=== PATIENT | male | born 1955 | race Caucasian/White ===

== ENCOUNTER → 2017-11-09 07:41 | Outpatient (CLI) | payer OTHER, SELFPAY ==
[2017-11-09 08:34] LABS: Add Manual Diff / Slide Review NO; Eosinophils Percent Auto 4.9 % (2-4); Hematocrit 47.6 % (41-53); Hemoglobin 16.1 g/dL (13.5-17.5); Lymphocytes Percent Auto 33.1 % (25-40); Mean Corpuscular HGB Conc 33.8 % (30-36); Mean Corpuscular Hemoglobin 30.2 PG (26-34); Mean Corpuscular Volume 89.3 fL (80-100); Monocytes Percent Auto 9.3 % (3-14); Neutrophils Absolute Auto 3600 /uL (3000-5900); Neutrophils Percent Auto 51.7 % (50-75); Platelet Count 225 X10^3/uL (150-400); Red Blood Cell Count 5.34 X10^6/uL (4.5-5.9); Red Cell Distribution Width 13.5 % (11.6-14.8); White Blood Cell Count 6.9 X10^3/uL (4.5-11.0)
[2017-11-09 08:46] LABS: Alanine Aminotransferase 35 IU/L (21-72); Albumin 4.1 g/dL (3.5-5.0); Albumin Globulin Ratio 1.2 (1.0-2.8); Alkaline Phosphatase 69 U/L (38-126); Aspartate Aminotransferase 28 IU/L (17-59); Bilirubin Total 0.6 mg/dL (0.2-1.3); Blood Urea Nitrogen 18 mg/dL (9-20); Calcium 9.2 mg/dL (8.4-10.2); Carbon Dioxide 25 mmol/L (22-32); Chloride 104 mmol/L (98-107); Cholesterol 214 mg/dL (140-199); Estimated Glomerular Filt Rate > 60.0 mL/min (>60); Globulin 3.4 g/dL (1.7-4.1); Glucose 108 mg/dL (80-110); HDL Cholesterol 39 mg/dL (40-60); HEMOLYSIS < 15 (0-50); LDL Cholesterol Calculated 142 mg/dL (<100); Potassium 4.3 mmol/L (3.4-5.1); Sodium 139 mmol/L (137-145); Total Protein 7.5 g/dL (6.3-8.2); Triglycerides 163 mg/dL (35-150)
[2017-11-09 09:16] LABS: Prostate Specific Antigen Scrn 0.902 ng/mL (0.1-4.0)
[2017-11-09 09:34] LABS: Thyroid Stimulating Hormone 1.28 uIU/mL (0.47-4.68)
== END ==
PROVIDERS: Family Provider Internal Medicine; PCP Internal Medicine; Visit Provider Internal Medicine
DX: E78.5 Hyperlipidemia, unspecified (principal)
CPT/HCPCS: 36415; 80053; 80061; 84443; 85025; G0103

== ENCOUNTER → 2018-01-13 07:06 | Outpatient (CLI) | payer OTHER, SELFPAY ==
[2018-01-13 07:50] LABS: Alanine Aminotransferase 36 IU/L (21-72); Albumin 4.5 g/dL (3.5-5.0); Albumin Globulin Ratio 1.5 (1.0-2.8); Alkaline Phosphatase 70 U/L (38-126); Aspartate Aminotransferase 25 IU/L (17-59); Bilirubin Total 0.4 mg/dL (0.2-1.3); Bilirubin Unconjugated 0.2 mg/dL (0.0-1.1); Blood Urea Nitrogen 17 mg/dL (9-20); Carbon Dioxide 26 mmol/L (22-32); Chloride 104 mmol/L (98-107); Cholesterol 148 mg/dL (140-199); Estimated Glomerular Filt Rate > 60.0 mL/min (>60); Globulin 3.1 g/dL (1.7-4.1); Glucose 110 mg/dL (80-110); HDL Cholesterol 39 mg/dL (40-60); HEMOLYSIS < 15 (0-50); LDL Cholesterol Calculated 86 mg/dL (<100); Potassium 4.1 mmol/L (3.4-5.1); Sodium 142 mmol/L (137-145); Total Protein 7.6 g/dL (6.3-8.2); Triglycerides 114 mg/dL (35-150)
== END ==
PROVIDERS: PCP Internal Medicine; Visit Provider Internal Medicine
DX: E78.5 Hyperlipidemia, unspecified (principal); I10 Essential (primary) hypertension
CPT/HCPCS: 36415; 80048; 80061; 80076

== ENCOUNTER → 2019-02-06 07:16 | Outpatient (CLI) | payer MEDICARE, SELFPAY ==
[2019-02-06 07:45] LABS: Add Manual Diff / Slide Review NO; Basophils Absolute Auto 100 /uL (0-100); Basophils Percent Auto 1.1 % (0-2); Eosinophils Absolute Auto 400 /uL (0-450); Eosinophils Percent Auto 5.3 % (2-4); Hematocrit 45.3 % (41-53); Hemoglobin 15.6 g/dL (13.5-17.5); Lymphocytes Absolute Auto 2300 /uL (1100-4500); Lymphocytes Percent Auto 31.9 % (25-40); Mean Corpuscular HGB Conc 34.4 % (30-36); Mean Corpuscular Hemoglobin 30.3 PG (26-34); Monocytes Absolute Auto 700 /uL (0-900); Monocytes Percent Auto 9.8 % (3-14); Neutrophils Absolute Auto 3800 /uL (1500-7000); Neutrophils Percent Auto 51.9 % (50-75); Platelet Count 236 X10^3/uL (150-400); Red Blood Cell Count 5.15 X10^6/uL (4.5-5.9); Red Cell Distribution Width 13.3 % (11.6-14.8); White Blood Cell Count 7.3 X10^3/uL (4.5-11.0)
[2019-02-06 07:57] LABS: Alanine Aminotransferase 32 IU/L (<50); Albumin 4.2 g/dL (3.5-5.0); Albumin Globulin Ratio 1.4 (1.0-2.8); Alkaline Phosphatase 78 U/L (38-126); Aspartate Aminotransferase 31 IU/L (17-59); Bilirubin Total 0.5 mg/dL (0.2-1.3); Blood Urea Nitrogen 22 mg/dL (9-20); Calcium 9.2 mg/dL (8.4-10.2); Carbon Dioxide 25 mmol/L (22-32); Chloride 104 mmol/L (98-107); Cholesterol 175 mg/dL (140-199); Estimated Glomerular Filt Rate > 60.0 mL/min (>60); Globulin 3.1 g/dL (1.7-4.1); Glucose 121 mg/dL (80-110); HDL Cholesterol 37 mg/dL (40-60); HEMOLYSIS 16 (0-50); LDL Cholesterol Calculated 102 mg/dL (<100); Potassium 4.2 mmol/L (3.4-5.1); Sodium 138 mmol/L (137-145); Total Protein 7.3 g/dL (6.3-8.2); Triglycerides 182 mg/dL (35-150)
[2019-02-06 08:27] LABS: Prostate Specific Antigen Scrn 0.719 ng/mL (0.1-4.0)
[2019-02-06 08:51] LABS: TSH w/ Reflex to FT4 1.07 uIU/mL (0.47-4.68)
[2019-02-06 09:11] LABS: Hep C Virus Ab w/Reflex Quant NEGATIVE s/c (NEGATIVE)
== END ==
PROVIDERS: Family Provider Internal Medicine; PCP Internal Medicine; Visit Provider Nurse Practitioner
DX: Z12.5 Encounter for screening for malignant neoplasm of prostate (principal); Z11.59 Encounter for screening for other viral diseases; E66.9 Obesity, unspecified; E78.5 Hyperlipidemia, unspecified; I10 Essential (primary) hypertension
CPT/HCPCS: 36415; 80053; 80061; 84443; 85025; 86803; G0103

== ENCOUNTER → 2019-02-17 07:45 | Outpatient (CLI) | payer MEDICARE, SELFPAY ==
[2019-02-17 09:06] LABS: Hemoglobin A1C% w Est Avg Glu 5.5 % (4.0-6.0)
[2019-02-17 09:27] LABS: Glucose 104 mg/dL (80-110)
== END ==
PROVIDERS: PCP Nurse Practitioner; Visit Provider Nurse Practitioner
DX: R73.01 Impaired fasting glucose (principal)
CPT/HCPCS: 36415; 82947; 83036

== ENCOUNTER → 2019-05-25 08:50 | Outpatient (CLI) | payer MEDICARE, SELFPAY ==
[2019-05-25 09:24] LABS: Cholesterol 146 mg/dL (140-199); HDL Cholesterol 39 mg/dL (40-60); LDL Cholesterol Calculated 79 mg/dL (<100); Triglycerides 142 mg/dL (35-150)
[2019-05-25 09:56] LABS: Hepatitis B Surface Antigen NEGATIVE s/c (NEGATIVE)
[2019-05-25 10:07] LABS: HIV 1 & 2 Ab/Ag 4th Gen Combo NEGATIVE (NEGATIVE)
[2019-05-27 14:04] LABS: Hepatitis B Surf Ab Qualitativ Nonreactive (Nonreactive)
== END ==
PROVIDERS: PCP Nurse Practitioner; Referring Provider Nurse Practitioner; Visit Provider Nurse Practitioner
DX: Z11.3 Encounter for screening for infections with a predominantly sexual mode of transmission (principal); E78.5 Hyperlipidemia, unspecified
CPT/HCPCS: 36415; 80061; 86706; 87340; 87389

== ENCOUNTER → 2019-12-08 10:47 | Outpatient (CLI) | payer MEDICARE, SELFPAY ==
[2019-12-11 08:05] LABS: COVID19 Sendout Not Detected (Not Detect)
== END ==
PROVIDERS: PCP Nurse Practitioner; Visit Provider Physician Assistant
DX: Z11.59 Encounter for screening for other viral diseases (principal)
CPT/HCPCS: 87635

== ENCOUNTER 2019-12-11 07:21 | Day surgery (SDC) | payer MEDICARE, SELFPAY ==
[2019-12-11] MEDS: LACTATED RINGERS 1,000 ML 200 ML IV (07:30)
[2019-12-11 07:40] VITALS: BP 142/86; PULSE 75; RESP 12; TEMP 36.6; O2SAT 96; BMI 29.9
--- NOTE | 2019-12-11 08:13 | PM.HP.1 ---
History of Present Illness History of Present Illness Date Patient Seen: 12/11/19 Time Patient Seen: 08:17 Chief complaint: SCREENING COLONOSCOPY Narrative: The patient presents for colorectal sreening. He had a previous colonoscopy 4 years ago that demonstrated adenomatous polyps which were removed.. No personal or family history of colon cancer. On further history denies any recent gastrointestinal symptoms. No nausea, vomiting, abdominal pain, loss of appetite, unexplained weight loss, change in bowel habits, diarrhea, constipation, melena, hematochezia, or bright red blood per rectum. Patient History Medical History Cataracts, bilateral (Chronic ~2014) Chicken pox (Resolved ~1960) Dehydration determined by examination (Acute) Hearing deficit (Chronic) Orthostatic dizziness (Acute) Vision disorder (Chronic) Surgical History Anesthesia (Resolved) History of tonsillectomy (~1963) Rupture Achilles tendon (Resolved ~1997) Family & Social History Family History Grandfather Black lung Son No problems noted. Father Heart disease Stroke Grandmother No problems noted. Mother Cancer ETOH abuse Grandfather No problems noted. Grandmother Cancer Social History: household members spouse Tobacco & Substance use: Smoking Status Never smoker alcohol intake current alcohol intake frequency 0-2 drinks per day Substance Use Type does not use Meds Home Medications and Allergies Home Medications Medication Instructions Recorded Confirmed Type aspirin 81 mg tablet,delayed 81 mg PO DAILY 10/28/18 12/11/19 History release hydrochlorothiazide 12.5 mg tablet 12.5 mg PO DAILY #90 tab 10/28/18 12/11/19 Rx atorvastatin 20 mg tablet 20 mg PO BEDTIME #90 tab 08/16/19 12/11/19 Rx Allergies Allergy/AdvReac Type Severity Reaction Status Date / Time No Known Drug Allergies Allergy Verified 12/11/19 07:32 Review of Systems Review of Systems Narrative: A 10 point review of systems is negative except as noted in the HPI Exam Vital Signs (past 8 hours): - 12/11/19 07:40 Temperature 97.8 F Pulse Rate 75 Respiratory Rate 12 Blood Pressure 142/86 H Pulse Oximetry 96 Oxygen Delivery Method Room Air Narrative Exam Narrative: General-no acute distress, well nourished adult male HEENT-moist mucous membranes, no scleral icterus Neck-supple, no lymphadenopathy Chest- non labored respirations, clear to auscultation bilaterally Cardiac-regular rate no peripheral edema Abdomen-soft, nontender, non distended Extremities-warm, well perfused Neurological-alert and oriented, no focal deficits Assessment & Plan Assessment and plan (1) Screening for malignant neoplasm of colon: Status: Acute Assessment & Plan narrative: The patient requires colorectal screening and colonoscopy is recommended. Technical details were discussed. Risks, benefits, alternatives explained. Risks including but not limited to myocardial infarction, aspiration, bleeding, pain, missed lesion, incomplete examination, need for further radiographic studies, colonic perforation, and need for major abdominal surgery were discussed. All questions were answered to their satisfaction, and they are in agreement with this plan.
[2019-12-11] MEDS: fentaNYL 250 MCG/5 ML INJ IV (08:26)
[2019-12-11] MEDS: MIDAZOLAM 5 MG/5 ML VIAL IV (08:26)
--- NOTE | 2019-12-11 08:53 | PM.OP.ENDO ---
Operative Date/Time/Diagnoses Date of procedure: 12/11/19 Time of procedure: 08:53 Pre-op diagnosis: Screening colonoscopy Post-op diagnosis: same Procedure & Clinicians Study performed: Colonoscopy Same procedure as scheduled: Yes Indications: 64-year-old man last colonoscopy 4 years ago had adenomatous polyps removed here for routine screening Surgeon: Arash Giles Procedure Notes SCOAP/Timeout: Performed Procedure in detail: Patient placed in left lateral recumbent position. Time out was performed. Procedural sedation was administered with Versed and Fentanyl. Examination began with a thorough inspection of the perianal area there was no evidence of fissures, fistulae, external hemorrhoids or cutaneous malignancy. The colonoscopy scope was then placed into the rectum the the lumen was insufflated with air. The scope was carefully advanced forward. Ultimately the cecum was intubated and confirmed by identification of the ileocecal valve, the appendiceal orifice and the confluence of the taenia. The scope was then slowly withdrawn examining colon thoroughly in all directions. In the rectum the rectal columns were identified and retroflexion of the scope was performed for inspection of the distal rectum and anal canal. The colonoscopy was notable for the followin. Quality of the preparation-excellent 2. No masses or polyps 3. Sigmoid diverticulosis 4. Grade 1 internal hemorrhoids Scope withdrawal time: 7 Sedation minutes: 24 Findings: diverticulosis and internal hemorrhoids Specimen(s): none sent Complications: none Impression: Normal colonoscopy Post-procedure Recommendations: Colonscopy in 10 years Disposition: same day surgery
[2019-12-11 08:56] VITALS: BP 115/78; BP 124/82; PULSE 66; PULSE 76; RESP 12; RESP 18; TEMP 36.6; O2SAT 90; O2SAT 92
[2019-12-11 09:02] VITALS: BP 124/82; PULSE 80; RESP 20; O2SAT 92
--- NOTE | 2019-12-11 09:05 | SUR.PHASEI ---
O2 90% room air, put on 2LNP, Awake, HOB elevated, drank juice/tolerated well.
[2019-12-11 09:06] VITALS: BP 122/76; PULSE 61; RESP 12; O2SAT 96
--- NOTE | 2019-12-11 09:09 | SUR.PHASEI ---
Changed fingers for pulse ox, immediately increased to 99%. O2 dc'd
[2019-12-11 09:11] VITALS: BP 120/83; PULSE 63; RESP 10; O2SAT 96
[2019-12-11 09:15] VITALS: BP 113/78; PULSE 64; RESP 10; TEMP 36.3; O2SAT 96
--- NOTE | 2019-12-11 09:16 | SUR.PHASEI ---
Pt has his glasses on.
== END 2019-12-11 09:27 | disposition home or self-care (01) ==
PROVIDERS: PCP Nurse Practitioner; Referring Provider Surgery; Visit Provider Surgery
PROC: 0DJD8ZZ Inspection of Lower Intestinal Tract, Via Natural or Artificial Opening Endoscopic (ICD-10-PCS; CPT 45378; principal; 2019-12-11 08:30)
DX: Z12.11 Encounter for screening for malignant neoplasm of colon (principal); Z86.010 Personal history of colon polyps; K57.30 Diverticulosis of large intestine without perforation or abscess without bleeding; K64.0 First degree hemorrhoids
CPT/HCPCS: G0105; 99152; J2250; J3010

== ENCOUNTER → 2020-04-17 08:23 | Outpatient (CLI) | payer MEDICARE, SELFPAY ==
[2020-04-17 09:32] LABS: Alanine Aminotransferase 41 IU/L (<50); Albumin 4.1 g/dL (3.5-5.0); Albumin Globulin Ratio 1.3 (1.0-2.8); Alkaline Phosphatase 77 U/L (38-126); Aspartate Aminotransferase 31 IU/L (17-59); BUN Creatinine Ratio 18.9 (6-22); Bilirubin Total 0.6 mg/dL (0.2-1.3); Blood Urea Nitrogen 17 mg/dL (9-20); Calcium 8.8 mg/dL (8.4-10.2); Carbon Dioxide 28 mmol/L (22-32); Chloride 105 mmol/L (98-107); Cholesterol 154 mg/dL (140-199); Estimated Glomerular Filt Rate > 60.0 mL/min (>60); Globulin 3.1 g/dL (1.7-4.1); Glucose 110 mg/dL (80-110); HDL Cholesterol 39 mg/dL (40-60); HEMOLYSIS < 15 (0-50); LDL Cholesterol Calculated 86 mg/dL (<100); Sodium 137 mmol/L (137-145); Total Protein 7.2 g/dL (6.3-8.2); Triglycerides 147 mg/dL (35-150)
[2020-04-17 09:53] LABS: Microalbumi Creatinin Ratio Ur 12.7 ug/mg CR (<30); Microalbumin Urine Random 1.9 mg/dL (0-1.6)
[2020-04-17 10:06] LABS: Free T3, Triiodothyronine Free 4.33 pg/mL (2.77-5.27); Free T4, Direct Thyroxine 0.78 ng/dL (0.78-2.19)
[2020-04-17 10:20] LABS: Thyroid Stimulating Hormone 1.14 uIU/mL (0.47-4.68)
[2020-04-17 14:11] LABS: Prostate Specific Antigen 0.616 ng/mL (0.10-4.00)
== END ==
PROVIDERS: PCP Nurse Practitioner; Referring Provider Nurse Practitioner; Visit Provider Nurse Practitioner
DX: E78.5 Hyperlipidemia, unspecified (principal); Z12.5 Encounter for screening for malignant neoplasm of prostate; F32.9 Major depressive disorder, single episode, unspecified; I10 Essential (primary) hypertension; Z79.899 Other long term (current) drug therapy
CPT/HCPCS: 36415; 80053; 80061; 82043; 82570; 84153; 84439; 84443; 84481

== ENCOUNTER → 2021-11-26 08:52 | Outpatient (CLI) | payer MEDICARE, SELFPAY ==
[2021-11-26 11:23] LABS: Alanine Aminotransferase 27 IU/L (<50); Albumin Globulin Ratio 1.1 (1.0-2.8); Alkaline Phosphatase 77 U/L (38-126); Aspartate Aminotransferase 24 IU/L (17-59); BUN Creatinine Ratio 14.9 (6-22); Bilirubin Total 0.7 mg/dL (0.2-1.3); Blood Urea Nitrogen 13 mg/dL (9-20); Calcium 8.6 mg/dL (8.4-10.2); Carbon Dioxide 25 mmol/L (22-32); Chloride 105 mmol/L (98-107); Cholesterol 169 mg/dL (140-199); Estimated Glomerular Filt Rate > 60 mL/min (>60); Globulin 3.5 g/dL (1.7-4.1); Glucose 109 mg/dL (80-110); HDL Cholesterol 39 mg/dL (40-60); HEMOLYSIS < 15 (0-50); LDL Cholesterol Calculated 103 mg/dL (<100); Potassium 3.8 mmol/L (3.4-5.1); Sodium 138 mmol/L (137-145); Total Protein 7.5 g/dL (6.3-8.2); Triglycerides 136 mg/dL (35-150)
[2021-11-26 11:50] LABS: Prostate Specific Antigen 0.754 ng/mL (0.10-4.00)
[2021-11-26 11:55] LABS: Free T3, Triiodothyronine Free 4.58 pg/mL (2.77-5.27); Free T4, Direct Thyroxine 0.97 ng/dL (0.78-2.19)
[2021-11-26 12:09] LABS: Thyroid Stimulating Hormone 0.824 uIU/mL (0.47-4.68)
[2021-11-26 15:35] LABS: Microalbumi Creatinin Ratio Ur 6.4 ug/mg CR (<30)
== END ==
PROVIDERS: PCP Nurse Practitioner; Referring Provider Nurse Practitioner; Visit Provider Nurse Practitioner
DX: E78.2 Mixed hyperlipidemia (principal); I10 Essential (primary) hypertension; Z79.899 Other long term (current) drug therapy; Z12.5 Encounter for screening for malignant neoplasm of prostate
CPT/HCPCS: 36415; 80053; 80061; 82043; 82570; 84153; 84439; 84443; 84481

== ENCOUNTER → 2022-06-09 12:14 | Outpatient (CLI) | payer MEDICARE, SELFPAY ==
--- NOTE | 2022-06-09 12:15 | DI.MRI.S_ITS ---
PROCEDURE: MR SHOULDER RT WO CON INDICATIONS: ongoing shoulder pain despite PT TECHNIQUE: Noncontrast oblique coronal T2 fast spin echo with fat saturation, oblique sagittal T1 spin echo and T2 fast spin echo with fat saturation, axial T1 spin echo and T2 fast spin echo with fat saturation through the shoulder. COMPARISON: None. FINDINGS: Image quality: Excellent. Rotator cuff: Mild T2 signal elevation diffusely throughout the supraspinatus and infraspinatus tendons at the humeral insertion sites extending the musculotendinous junctions, indicating tendinopathy. Superimposed low-grade bursal surface tearing of the anterior and mid supraspinatus tendon at the humeral insertion site. Moderate grade intrasubstance tearing of the mid subscapularis tendon at the humeral insertion site. Infraspinatus and teres minor tendons are intact. No rotator cuff atrophy. Bones and bursae: No bone marrow contusions or fractures. Moderate periarticular osteophyte formation at the glenohumeral joint. Moderate subchondral degenerative marrow edema and subchondral cyst formation within the glenoid and humeral head. Moderate acromioclavicular joint degeneration. The acromion demonstrates conventional anatomy, without an os acromiale. No pathologic subacromial-subdeltoid or subcoracoid bursal fluid is present. Capsule and soft tissues: Diffuse degenerative tearing of the glenoid labrum. The long head of the biceps tendon demonstrates normal location and morphology. The rotator interval appears normal, without fibrosis. The coracohumeral ligament is normal in thickness. IMPRESSION: 1. Supraspinatus and infraspinatus tendinopathy. 2. Multifocal partial-thickness tears of the rotator cuff. No full-thickness rotator cuff tear. 3. Acromioclavicular joint osteoarthritis. 4. Glenohumeral joint osteoarthritis with associated glenoid labral tearing. Dictated by: Gricel Garrido M.D. on 06/09/2022 at 13:20 Transcribed by: NOLA on 06/09/2022 at 13:22 Approved by: Gricel Garrido M.D. on 06/09/2022 at 16:43
== END ==
PROVIDERS: Family Provider Nurse Practitioner; PCP Nurse Practitioner; Referring Provider Nurse Practitioner; Visit Provider Nurse Practitioner
DX: M75.111 Incomplete rotator cuff tear or rupture of right shoulder, not specified as traumatic (principal); M19.011 Primary osteoarthritis, right shoulder; M25.511 Pain in right shoulder
CPT/HCPCS: 73221

== ENCOUNTER 2022-06-24 12:00 | Outpatient (RCR) | payer MEDICARE, SELFPAY ==
--- NOTE | 2022-04-22 11:15 | PT.OPPOC ---
Physical, Occupational & Speech Therapy At [facility] Current Diagnoses Pain in right shoulder (04/22/22) Stiffness of right shoulder, not elsewhere classified (04/22/22) Visit Care Team Role Provider Type DARNELL English Attending Provider Advanced Criminal Defense Attorney Family Provider Primary Care Provider Referring Provider Specialty: Family Practice Address: [address] [place] [address], [facility] Email: [email or web address] Plan Of Care PT-OP-T Assessment and Plan Start: 04/22/22 17:37 Freq: Status: Active Protocol: Document 04/22/22 10:30 DCW (Rec: 04/23/22 09:38 DCW [id number]) Physical Therapy Assessment Rehab Potential Rehabilitation Potential Good Evaluation Complexity Number of Personal Factors/Comorbidities 1-2 Number of Body Systems Impaired 3 Clinical Presentation at Evaluation Evolving Impairments Impairments Activity Tolerance,Functional Activities,Functional Mobility ,Pain,Posture,ROM,Soft Tissue Mobility,Strength,Tone Goals Two Impairment Pt reports interrupted sleep due to pain nearly every night Paper Machine Backtender Goal (LTG) Pt to report return to normal sleep schedule at least five days a week without shoulder pain waking him up. LTG Duration 06/20/22 One Impairment Pt does not have an appropriate home exercise program Short Term Goal (STG) Pt to be independent and compliant with an appropriate HEP STG Duration 05/20/22 Assessment Summary Assessment Pt presents with limited right shoulder ROM, pain, and functional mobility. Difficulty to DDx due to nearly all special testing being positive at his initial evaluation. With his limited ROM, pain, clicking/popping, and occasional instances of his arm getting stuck mid- movement, pt may have labral involvement, vs rotator cuff injury. Additionally, passive ROM is fairly limited after one year of decreased shoulder mobility, which may indicate potential adhesive capsulitis. Pt would likely greatly benefit from advanced imaging, in addition to continued skilled therapy focusing on improving shoulder active and passive ROM, gentle strengthening as tolerated, decreasing soft tissue tone, and improving pain control in order to allow pt better sleep during the night. Physical Therapy Plan Frequency and Duration Frequency of Treatment 2x/Week Plan of Care Start Date 04/22/22 Plan of Care End Date 06/20/22 Therapeutic Interventions Therapeutic Interventions Home Exercise Program,Joint Mobilizations,Manual Therapy, Patient/Caregiver Education, Self-Care/Home Management,Soft Tissue Mobilization, Therapeutic Activities, Therapeutic Exercises Other Referrals/Consults Referrals/Consults Recommended Pt would likely benefit from advanced imaging on his right shoulder Next Visit Focus/Plan Next Note Type Treatment Note Next Visit Plan PROM/AROM, strengthening, STM Plan of Care Dates Plan of Care Start Date 04/22/22 Plan of Care End Date 06/20/22 Electronically Signed by: Juan Lindquist, PT 04/23/22 0939 If you are in agreement with this Plan of Care, please return a signed and dated copy. I have reviewed this Plan of Care and certify that the skilled therapy services above are required to meet the patient?s needs. Physician Signature Date Printed Name and Credentials Clinical Instructor Signature Printed Name and Credentials
--- NOTE | 2022-04-22 11:15 | PT.OIE ---
Current Diagnoses Pain in right shoulder (04/22/22) Stiffness of right shoulder, not elsewhere classified (04/22/22) Past Medical History (Last Reviewed 02/18/22 @ 12:47 by DARNELL English) Cataracts, bilateral (~2014) Chicken pox (~196) Dehydration determined by examination Hearing deficit Orthostatic dizziness Vision disorder Past Surgical History (Last Reviewed 02/18/22 @ 12:47 by DARNELL English) Anesthesia History of tonsillectomy (~1963) Rupture Achilles tendon (~1997) Visit Care Team Role Provider Type DARNELL English Attending Provider Advanced Eeg Tech Family Provider Primary Care Provider Referring Provider Specialty: [facility] Practice Address: [address] [place] [address], [facility] Email: [email or web address] Physical Therapy Initial Evaluation PT-OP-A Visit Information Start: 04/22/22 17:37 Freq: Status: Active Protocol: Document 04/22/22 10:30 DCW (Rec: 04/22/22 17:56 [facility] [id number]) Out-Patient Physical Therapy Visit Information Visit Information Visit Type Initial Evaluation Visit Start Time 10:30 Visit Stop Time 11:15 Total Visit Minutes 45 Visit Number 1 Number of AGENCY SERVICE COORDINATOR Visits 0 Evaluation Information Evaluation Date 04/22/22 PT-OP-B Current Condition Start: 04/22/22 17:37 Freq: Status: Active Protocol: Document 04/22/22 10:30 DCW (Rec: 04/22/22 17:56 [facility] [id number]) Current Condition History of Current Condition Onset Date One year history Current Complaints Insidious onset of right shoulder pain and stiffness History of Current Condition Pt is a 66 year old male presenting with a one year history of right shoulder pain . Pt cannot remember any initial injury. Admits pain has worsened over the past year. Notes there is occasionally a painful popping or grinding sensation, and when he attempts to raise his arm up, it will sometimes feel like it gets stuck. Struggles to lift arm overhead or hold any amount of weight in an extended arm. Admits biggest problem is that is has started to limit his ability to sleep due to the pain. Treatment Goals Patient/Caregiver Goals Improve ability to sleep through the night, improve ROM PT-OP-C Subjective Start: 04/22/22 17:37 Freq: Status: Active Protocol: Document 04/22/22 10:30 DCW (Rec: 04/22/22 17:56 DCW [id number]) OP-PT Subjective Patient Comments Patient Comments Pt admits that he has been really favoring his arm due to pain, performing minimal activities. Patient Reported Progress Worse Patient Questionnaires Quick Dash- Upper Extremity Quick Dash UE Score 27.27% Quick Dash UE Impairment 20 to 39% Impaired (Score 20- 39) PT-OP-E Functional Tests Start: 04/22/22 17:37 Freq: Status: Active Protocol: Document 04/22/22 10:30 DCW (Rec: 04/22/22 17:56 DCW [id number]) Functional Tests Apley's Scratch Test Action 2- Left T2 Action 2- Right T1 Action 3- Left T9 Action 3- Right R PSIS PT-OP-F Manual Assessment Start: 04/22/22 17:37 Freq: Status: Active Protocol: Document 04/22/22 10:30 DCW (Rec: 04/22/22 17:56 DCW [id number]) Manual Assessments Joint Mobility Assessment Joint Mobility Assessment Significant limitations with passive joint mobility, severe grinding and popping noises, PROM largely no greater than limited AROM. Noticeable improvement with pain and mobility with moderate joint distraction PT-OP-K Range of Motion Start: 04/22/22 17:37 Freq: Status: Active Protocol: Document 04/22/22 10:30 DCW (Rec: 04/22/22 17:56 DCW [id number]) Shoulder Goniometric Range of Motion Shoulder Left Active Shoulder ROM WFL No Testing Position Sitting Flexion 160 Abduction 145 External Rotation at 0 degrees Abduction 52 Right Passive Testing Position Supine Flexion 102 Abduction 87 Comments PROM Flexion increased to 123? with distraction through GH Right Active Shoulder ROM WFL No Testing Position Sitting Flexion 92 Abduction 83 External Rotation at 0 degrees Abduction 35 Internal Rotation Behind Back (text) R PSIS PT-OP-L Special Tests Start: 04/22/22 17:37 Freq: Status: Active Protocol: Document 04/22/22 10:30 DCW (Rec: 04/22/22 17:56 DCW [id number]) Special Tests Shoulder Special Tests Passive ER Rotator Cuff Test Results Positive R Lift-Off Rotator Cuff Test Results Unable to position R arm [place] Chencho Impingement Test Results Positive R Grind Labrum Test Results Positive R Drop Arm Rotator Cuff Test Results Unable to position R arm Clunk Test Test Results Positive R Belly Press Test Results Positive R Apprehension Test Test Results Positive R AC Joint Compression Test Results Negative PT-OP-Q Treatments Start: 04/22/22 17:37 Freq: Status: Active Protocol: Document 04/22/22 10:30 DCW (Rec: 04/22/22 17:56 DCW [id number]) Therapeutic Exercises Standing Exercises Wall Slides Standing Exercise Name Wall slides - Flexion and Abduction Side right Pendulums Standing Exercise Name Pendulums Side right PT-OP-T Assessment and Plan Start: 04/22/22 17:37 Freq: Status: Active Protocol: Document 04/22/22 10:30 DCW (Rec: 04/23/22 09:38 DCW [id number]) Physical Therapy Assessment Rehab Potential Rehabilitation Potential Good Evaluation Complexity Number of Personal Factors/Comorbidities 1-2 Number of Body Systems Impaired 3 Clinical Presentation at Evaluation Evolving Impairments Impairments Activity Tolerance,Functional Activities,Functional Mobility ,Pain,Posture,ROM,Soft Tissue Mobility,Strength,Tone Goals Two Impairment Pt reports interrupted sleep due to pain nearly every night Tow Feeder Goal (LTG) Pt to report return to normal sleep schedule at least five days a week without shoulder pain waking him up. LTG Duration 06/20/22 One Impairment Pt does not have an appropriate home exercise program Short Term Goal (STG) Pt to be independent and compliant with an appropriate HEP STG Duration 05/20/22 Assessment Summary Assessment Pt presents with limited right shoulder ROM, pain, and functional mobility. Difficulty to DDx due to nearly all special testing being positive at his initial evaluation. With his limited ROM, pain, clicking/popping, and occasional instances of his arm getting stuck mid- movement, pt may have labral involvement, vs rotator cuff injury. Additionally, passive ROM is fairly limited after one year of decreased shoulder mobility, which may indicate potential adhesive capsulitis. Pt would likely greatly benefit from advanced imaging, in addition to continued skilled therapy focusing on improving shoulder active and passive ROM, gentle strengthening as tolerated, decreasing soft tissue tone, and improving pain control in order to allow pt better sleep during the night. Physical Therapy Plan Frequency and Duration Frequency of Treatment 2x/Week Plan of Care Start Date 04/22/22 Plan of Care End Date 06/20/22 Therapeutic Interventions Therapeutic Interventions Home Exercise Program,Joint Mobilizations,Manual Therapy, Patient/Caregiver Education, Self-Care/Home Management,Soft Tissue Mobilization, Therapeutic Activities, Therapeutic Exercises Other Referrals/Consults Referrals/Consults Recommended Pt would likely benefit from advanced imaging on his right shoulder Next Visit Focus/Plan Next Note Type Treatment Note Next Visit Plan PROM/AROM, strengthening, STM
--- NOTE | 2022-04-29 12:01 | PT.OTN ---
Current Diagnoses Pain in right shoulder (04/29/22) Stiffness of right shoulder, not elsewhere classified (04/29/22) Physical Therapy Treatment Note PT-OP-A Visit Information Start: 04/22/22 17:37 Freq: Status: Active Protocol: Document 04/29/22 11:15 DCW (Rec: 04/29/22 12:01 DCW [id number]) Out-Patient Physical Therapy Visit Information Visit Information Visit Type Treatment Note Visit Start Time 11:15 Visit Stop Time 12:00 Total Visit Minutes 45 Visit Number 2 Number of CORPORATE HUMAN RESOURCES MANAGER Visits 0 Evaluation Information Evaluation Date 04/22/22 PT-OP-B Current Condition Start: 04/22/22 17:37 Freq: Status: Active Protocol: Document 04/22/22 10:30 DCW (Rec: 04/22/22 17:56 DCW [id number]) Current Condition History of Current Condition Onset Date One year history Current Complaints Insidious onset of right shoulder pain and stiffness History of Current Condition Pt is a 66 year old male presenting with a one year history of right shoulder pain . Pt cannot remember any initial injury. Admits pain has worsened over the past year. Notes there is occasionally a painful popping or grinding sensation, and when he attempts to raise his arm up, it will sometimes feel like it gets stuck. Struggles to lift arm overhead or hold any amount of weight in an extended arm. Admits biggest problem is that is has started to limit his ability to sleep due to the pain. Treatment Goals Patient/Caregiver Goals Improve ability to sleep through the night, improve ROM PT-OP-C Subjective Start: 04/22/22 17:37 Freq: Status: Active Protocol: Document 04/29/22 11:15 DCW (Rec: 04/29/22 12:01 DCW [id number]) OP-PT Subjective Patient Comments Patient Comments Pt reports his shoulder is fairly sore today. PT-OP-E Functional Tests Start: 04/22/22 17:37 Freq: Status: Active Protocol: Document 04/22/22 10:30 DCW (Rec: 04/22/22 17:56 DCW [id number]) Functional Tests Apley's Scratch Test Action 2- Left T2 Action 2- Right T1 Action 3- Left T9 Action 3- Right R PSIS PT-OP-F Manual Assessment Start: 04/22/22 17:37 Freq: Status: Active Protocol: Document 04/22/22 10:30 DCW (Rec: 04/22/22 17:56 DCW [id number]) Manual Assessments Joint Mobility Assessment Joint Mobility Assessment Significant limitations with passive joint mobility, severe grinding and popping noises, PROM largely no greater than limited AROM. Noticeable improvement with pain and mobility with moderate joint distraction PT-OP-K Range of Motion Start: 04/22/22 17:37 Freq: Status: Active Protocol: Document 04/22/22 10:30 DCW (Rec: 04/22/22 17:56 DCW [id number]) Shoulder Goniometric Range of Motion Shoulder Left Active Shoulder ROM WFL No Testing Position Sitting Flexion 160 Abduction 145 External Rotation at 0 degrees Abduction 52 Right Passive Testing Position Supine Flexion 102 Abduction 87 Comments PROM Flexion increased to 123? with distraction through GH Right Active Shoulder ROM WFL No Testing Position Sitting Flexion 92 Abduction 83 External Rotation at 0 degrees Abduction 35 Internal Rotation Behind Back (text) R PSIS PT-OP-L Special Tests Start: 04/22/22 17:37 Freq: Status: Active Protocol: Document 04/22/22 10:30 DCW (Rec: 04/22/22 17:56 DCW [id number]) Special Tests Shoulder Special Tests Passive ER Rotator Cuff Test Results Positive R Lift-Off Rotator Cuff Test Results Unable to position R arm [place] Chen[place] Impingement Test Results Positive R Grind Labrum Test Results Positive R Drop Arm Rotator Cuff Test Results Unable to position R arm Clunk Test Test Results Positive R Belly Press Test Results Positive R Apprehension Test Test Results Positive R AC Joint Compression Test Results Negative PT-OP-Q Treatments Start: 04/22/22 17:37 Freq: Status: Active Protocol: Document 04/29/22 11:15 DCW (Rec: 04/29/22 12:01 DCW [id number]) Cardio Equipment Upper Body Ergometer (UBE) Duration (Minutes) 5 Seat Position 14 Height 2.5 Therapeutic Exercises Supine Exercises Horizontal Ab/Ad Supine Exercise Name Horizontal Ab/Adduction Side bilateral Equipment Used PVC Serratus Punch Supine Exercise Name Serratus Punch Side bilateral Equipment Used PVC Shoulder Flexion Supine Exercise Name AAROM /c PVC Sitting Exercises GH PROM Sitting Exercise Name Pulleys - Flexion, Scaption Standing Exercises Shoulder Abduction Standing Exercise Name AAROM /c PVC Side right Manual Therapy Treatment Soft Tissue Mobilization Parascapular Body Location R Parascapulars Mobilization Type Sustained Pressure,Trigger Point Release Intensity/Depth Moderate Body Position Supine Joint Mobilizations GH Joint R GH Direction Inferior Grade III Body Position Supine PT-OP-T Assessment and Plan Start: 04/22/22 17:37 Freq: Status: Active Protocol: Document 04/29/22 11:15 DCW (Rec: 04/29/22 12:01 DCW [id number]) Physical Therapy Assessment Impairments Impairments Activity Tolerance,Functional Activities,Functional Mobility ,Pain,Posture,ROM,Soft Tissue Mobility,Strength,Tone Goals Two Impairment Pt reports interrupted sleep due to pain nearly every night Senior Living Goal (LTG) Pt to report return to normal sleep schedule at least five days a week without shoulder pain waking him up. LTG Duration 06/20/22 One Impairment Pt does not have an appropriate home exercise program Short Term Goal (STG) Pt to be independent and compliant with an appropriate HEP STG Duration 05/20/22 Assessment Summary Assessment Pt tolerated most activities well, increased popping/ crunching in joint with most abduction activities. No activities today increased pain levels too much, pt noted everything was tolerable. Physical Therapy Plan Frequency and Duration Frequency of Treatment 2x/Week Plan of Care Start Date 04/22/22 Plan of Care End Date 06/20/22 Therapeutic Interventions Therapeutic Interventions Home Exercise Program,Joint Mobilizations,Manual Therapy, Patient/Caregiver Education, Self-Care/Home Management,Soft Tissue Mobilization, Therapeutic Activities, Therapeutic Exercises Other Referrals/Consults Referrals/Consults Recommended Pt would likely benefit from advanced imaging on his right shoulder Next Visit Focus/Plan Next Note Type Treatment Note Next Visit Plan PROM/AROM, strengthening, STM
--- NOTE | 2022-05-01 12:02 | PT.OTN ---
Current Diagnoses Pain in right shoulder (05/01/22) Stiffness of right shoulder, not elsewhere classified (05/01/22) Physical Therapy Treatment Note PT-OP-A Visit Information Start: 04/22/22 17:37 Freq: Status: Active Protocol: Document 05/01/22 11:19 DCW (Rec: 05/01/22 12:01 DCW [id number]) Out-Patient Physical Therapy Visit Information Visit Information Visit Type Treatment Note Visit Start Time 11:19 Visit Stop Time 12:00 Total Visit Minutes 41 Visit Number 3 Number of BIOLOGICAL ENGINEER Visits 0 Evaluation Information Evaluation Date 04/22/22 PT-OP-B Current Condition Start: 04/22/22 17:37 Freq: Status: Active Protocol: Document 04/22/22 10:30 DCW (Rec: 04/22/22 17:56 DCW [id number]) Current Condition History of Current Condition Onset Date One year history Current Complaints Insidious onset of right shoulder pain and stiffness History of Current Condition Pt is a 66 year old male presenting with a one year history of right shoulder pain . Pt cannot remember any initial injury. Admits pain has worsened over the past year. Notes there is occasionally a painful popping or grinding sensation, and when he attempts to raise his arm up, it will sometimes feel like it gets stuck. Struggles to lift arm overhead or hold any amount of weight in an extended arm. Admits biggest problem is that is has started to limit his ability to sleep due to the pain. Treatment Goals Patient/Caregiver Goals Improve ability to sleep through the night, improve ROM PT-OP-C Subjective Start: 04/22/22 17:37 Freq: Status: Active Protocol: Document 05/01/22 11:19 DCW (Rec: 05/01/22 12:01 DCW [id number]) OP-PT Subjective Patient Comments Patient Comments I've felt like I had spent a few hours in the weight room after I got done here last time. PT-OP-E Functional Tests Start: 04/22/22 17:37 Freq: Status: Active Protocol: Document 04/22/22 10:30 DCW (Rec: 04/22/22 17:56 DCW [id number]) Functional Tests Apley's Scratch Test Action 2- Left T2 Action 2- Right T1 Action 3- Left T9 Action 3- Right R PSIS PT-OP-F Manual Assessment Start: 04/22/22 17:37 Freq: Status: Active Protocol: Document 04/22/22 10:30 DCW (Rec: 04/22/22 17:56 DCW [id number]) Manual Assessments Joint Mobility Assessment Joint Mobility Assessment Significant limitations with passive joint mobility, severe grinding and popping noises, PROM largely no greater than limited AROM. Noticeable improvement with pain and mobility with moderate joint distraction PT-OP-K Range of Motion Start: 04/22/22 17:37 Freq: Status: Active Protocol: Document 04/22/22 10:30 DCW (Rec: 04/22/22 17:56 DCW [id number]) Shoulder Goniometric Range of Motion Shoulder Left Active Shoulder ROM WFL No Testing Position Sitting Flexion 160 Abduction 145 External Rotation at 0 degrees Abduction 52 Right Passive Testing Position Supine Flexion 102 Abduction 87 Comments PROM Flexion increased to 123? with distraction through GH Right Active Shoulder ROM WFL No Testing Position Sitting Flexion 92 Abduction 83 External Rotation at 0 degrees Abduction 35 Internal Rotation Behind Back (text) R PSIS PT-OP-L Special Tests Start: 04/22/22 17:37 Freq: Status: Active Protocol: Document 04/22/22 10:30 DCW (Rec: 04/22/22 17:56 DCW [id number]) Special Tests Shoulder Special Tests Passive ER Rotator Cuff Test Results Positive R Lift-Off Rotator Cuff Test Results Unable to position R arm [place] Chen[place] Impingement Test Results Positive R Grind Labrum Test Results Positive R Drop Arm Rotator Cuff Test Results Unable to position R arm Clunk Test Test Results Positive R Belly Press Test Results Positive R Apprehension Test Test Results Positive R AC Joint Compression Test Results Negative PT-OP-Q Treatments Start: 04/22/22 17:37 Freq: Status: Active Protocol: Document 05/01/22 11:19 DCW (Rec: 05/01/22 12:01 DCW [id number]) Cardio Equipment Upper Body Ergometer (UBE) Duration (Minutes) 5 Seat Position 14 Height 3 Therapeutic Exercises Supine Exercises Horizontal Ab/Ad Supine Exercise Name Horizontal Ab/Adduction Side bilateral Equipment Used PVC Serratus Punch Supine Exercise Name Serratus Punch Side bilateral Equipment Used PVC Shoulder Flexion Supine Exercise Name AAROM /c PVC Sitting Exercises GH PROM Sitting Exercise Name Pulleys - Flexion, Scaption Standing Exercises Rows Standing Exercise Name Rows Side bilateral Resistance Lv 2 Adduction Standing Exercise Name Shoulder Adduction Side bilateral Resistance Lv 2 Extension Standing Exercise Name Shoulder Extension Side bilateral Resistance Lv 2 Manual Therapy Treatment Soft Tissue Mobilization Parascapular Body Location R Parascapulars Mobilization Type Sustained Pressure,Trigger Point Release Intensity/Depth Moderate Body Position Supine Joint Mobilizations GH Joint R GH Direction Inferior Grade III Body Position Supine PT-OP-T Assessment and Plan Start: 04/22/22 17:37 Freq: Status: Active Protocol: Document 05/01/22 11:19 DCW (Rec: 05/01/22 12:01 DCW [id number]) Physical Therapy Assessment Impairments Impairments Activity Tolerance,Functional Activities,Functional Mobility ,Pain,Posture,ROM,Soft Tissue Mobility,Strength,Tone Goals Two Impairment Pt reports interrupted sleep due to pain nearly every night House Manager Goal (LTG) Pt to report return to normal sleep schedule at least five days a week without shoulder pain waking him up. LTG Duration 06/20/22 One Impairment Pt does not have an appropriate home exercise program Short Term Goal (STG) Pt to be independent and compliant with an appropriate HEP STG Duration 05/20/22 Assessment Summary Assessment Pt continues to have popping/ rubbing present with most activities in his R GH joint, notes no associated pain with it at the moment. Did well with new strengthening exercises, reports understanding of his HEP. Physical Therapy Plan Frequency and Duration Frequency of Treatment 2x/Week Plan of Care Start Date 04/22/22 Plan of Care End Date 06/20/22 Therapeutic Interventions Therapeutic Interventions Home Exercise Program,Joint Mobilizations,Manual Therapy, Patient/Caregiver Education, Self-Care/Home Management,Soft Tissue Mobilization, Therapeutic Activities, Therapeutic Exercises Other Referrals/Consults Referrals/Consults Recommended Pt would likely benefit from advanced imaging on his right shoulder Next Visit Focus/Plan Next Note Type Treatment Note Next Visit Plan PROM/AROM, strengthening, STM
--- NOTE | 2022-05-04 11:57 | PT.OTN ---
Current Diagnoses Pain in right shoulder (05/04/22) Stiffness of right shoulder, not elsewhere classified (05/04/22) Physical Therapy Treatment Note PT-OP-A Visit Information Start: 04/22/22 17:37 Freq: Status: Active Protocol: Document 05/04/22 11:15 DCW (Rec: 05/04/22 11:57 DCW [id number]) Out-Patient Physical Therapy Visit Information Visit Information Visit Type Treatment Note Visit Start Time 11:15 Visit Stop Time 12:00 Total Visit Minutes 45 Visit Number 4 Number of WATER QUALITY ASSISTANT Visits 0 Evaluation Information Evaluation Date 04/22/22 PT-OP-B Current Condition Start: 04/22/22 17:37 Freq: Status: Active Protocol: Document 04/22/22 10:30 DCW (Rec: 04/22/22 17:56 DCW [id number]) Current Condition History of Current Condition Onset Date One year history Current Complaints Insidious onset of right shoulder pain and stiffness History of Current Condition Pt is a 66 year old male presenting with a one year history of right shoulder pain . Pt cannot remember any initial injury. Admits pain has worsened over the past year. Notes there is occasionally a painful popping or grinding sensation, and when he attempts to raise his arm up, it will sometimes feel like it gets stuck. Struggles to lift arm overhead or hold any amount of weight in an extended arm. Admits biggest problem is that is has started to limit his ability to sleep due to the pain. Treatment Goals Patient/Caregiver Goals Improve ability to sleep through the night, improve ROM PT-OP-C Subjective Start: 04/22/22 17:37 Freq: Status: Active Protocol: Document 05/04/22 11:15 DCW (Rec: 05/04/22 11:57 DCW [id number]) OP-PT Subjective Patient Comments Patient Comments Pt still having some discomfort with HEP, specifically wall-walking up into abduction. PT-OP-E Functional Tests Start: 04/22/22 17:37 Freq: Status: Active Protocol: Document 04/22/22 10:30 DCW (Rec: 04/22/22 17:56 DCW [id number]) Functional Tests Apley's Scratch Test Action 2- Left T2 Action 2- Right T1 Action 3- Left T9 Action 3- Right R PSIS PT-OP-F Manual Assessment Start: 04/22/22 17:37 Freq: Status: Active Protocol: Document 04/22/22 10:30 DCW (Rec: 04/22/22 17:56 DCW [id number]) Manual Assessments Joint Mobility Assessment Joint Mobility Assessment Significant limitations with passive joint mobility, severe grinding and popping noises, PROM largely no greater than limited AROM. Noticeable improvement with pain and mobility with moderate joint distraction PT-OP-K Range of Motion Start: 04/22/22 17:37 Freq: Status: Active Protocol: Document 04/22/22 10:30 DCW (Rec: 04/22/22 17:56 DCW [id number]) Shoulder Goniometric Range of Motion Shoulder Left Active Shoulder ROM WFL No Testing Position Sitting Flexion 160 Abduction 145 External Rotation at 0 degrees Abduction 52 Right Passive Testing Position Supine Flexion 102 Abduction 87 Comments PROM Flexion increased to 123? with distraction through GH Right Active Shoulder ROM WFL No Testing Position Sitting Flexion 92 Abduction 83 External Rotation at 0 degrees Abduction 35 Internal Rotation Behind Back (text) R PSIS PT-OP-L Special Tests Start: 04/22/22 17:37 Freq: Status: Active Protocol: Document 04/22/22 10:30 DCW (Rec: 04/22/22 17:56 DCW [id number]) Special Tests Shoulder Special Tests Passive ER Rotator Cuff Test Results Positive R Lift-Off Rotator Cuff Test Results Unable to position R arm [place] Impingement Test Results Positive R Grind Labrum Test Results Positive R Drop Arm Rotator Cuff Test Results Unable to position R arm Clunk Test Test Results Positive R Belly Press Test Results Positive R Apprehension Test Test Results Positive R AC Joint Compression Test Results Negative PT-OP-Q Treatments Start: 04/22/22 17:37 Freq: Status: Active Protocol: Document 05/04/22 11:15 DCW (Rec: 05/04/22 11:57 DCW [id number]) Cardio Equipment Upper Body Ergometer (UBE) Duration (Minutes) 5 Seat Position 14 Height 3 Gym Equipment Therapeutic Ball I's, Y's, T's Exercise Details Prone I's, Y's, and T's Ball Size/Color Green - 65 cm 1# Body Position Prone Therapeutic Exercises Supine Exercises Horizontal Ab/Ad Supine Exercise Name Horizontal Ab/Adduction Side bilateral Equipment Used PVC Serratus Punch Supine Exercise Name Serratus Punch Side bilateral Equipment Used PVC Shoulder Flexion Supine Exercise Name AAROM /c PVC Sitting Exercises GH PROM Sitting Exercise Name Pulleys - Flexion, Scaption Standing Exercises Pec Stretch Standing Exercise Name Doorway stretch 45 deg abd Side bilateral Manual Therapy Treatment Soft Tissue Mobilization Parascapular Body Location R Parascapulars Mobilization Type Sustained Pressure,Trigger Point Release Intensity/Depth Moderate Body Position Supine Joint Mobilizations GH Joint R GH Direction Inferior Grade III Body Position Supine PT-OP-T Assessment and Plan Start: 04/22/22 17:37 Freq: Status: Active Protocol: Document 05/04/22 11:15 DCW (Rec: 05/04/22 11:57 DCW [id number]) Physical Therapy Assessment Impairments Impairments Activity Tolerance,Functional Activities,Functional Mobility ,Pain,Posture,ROM,Soft Tissue Mobility,Strength,Tone Goals Two Impairment Pt reports interrupted sleep due to pain nearly every night Radiology Teacher Goal (LTG) Pt to report return to normal sleep schedule at least five days a week without shoulder pain waking him up. LTG Duration 06/20/22 One Impairment Pt does not have an appropriate home exercise program Short Term Goal (STG) Pt to be independent and compliant with an appropriate HEP STG Duration 05/20/22 Assessment Summary Assessment Pt doing fairly well overall, showing some improvement with flexion activities, still largely limited with any abduction. Added some pec stretching today due to fairly significant tightness in right pec. Physical Therapy Plan Frequency and Duration Frequency of Treatment 2x/Week Plan of Care Start Date 04/22/22 Plan of Care End Date 06/20/22 Therapeutic Interventions Therapeutic Interventions Home Exercise Program,Joint Mobilizations,Manual Therapy, Patient/Caregiver Education, Self-Care/Home Management,Soft Tissue Mobilization, Therapeutic Activities, Therapeutic Exercises Other Referrals/Consults Referrals/Consults Recommended Pt would likely benefit from advanced imaging on his right shoulder Next Visit Focus/Plan Next Note Type Treatment Note Next Visit Plan PROM/AROM, strengthening, STM
--- NOTE | 2022-05-07 12:00 | PT.OTN ---
Current Diagnoses Pain in right shoulder (05/07/22) Stiffness of right shoulder, not elsewhere classified (05/07/22) Physical Therapy Treatment Note PT-OP-A Visit Information Start: 04/22/22 17:37 Freq: Status: Active Protocol: Document 05/07/22 11:15 DCW (Rec: 05/07/22 12:00 DCW [id number]) Out-Patient Physical Therapy Visit Information Visit Information Visit Type Treatment Note Visit Start Time 11:15 Visit Stop Time 12:00 Total Visit Minutes 45 Visit Number 5 Number of LINING MAKER HAND Visits 0 Evaluation Information Evaluation Date 04/22/22 PT-OP-B Current Condition Start: 04/22/22 17:37 Freq: Status: Active Protocol: Document 04/22/22 10:30 DCW (Rec: 04/22/22 17:56 DCW [id number]) Current Condition History of Current Condition Onset Date One year history Current Complaints Insidious onset of right shoulder pain and stiffness History of Current Condition Pt is a 66 year old male presenting with a one year history of right shoulder pain . Pt cannot remember any initial injury. Admits pain has worsened over the past year. Notes there is occasionally a painful popping or grinding sensation, and when he attempts to raise his arm up, it will sometimes feel like it gets stuck. Struggles to lift arm overhead or hold any amount of weight in an extended arm. Admits biggest problem is that is has started to limit his ability to sleep due to the pain. Treatment Goals Patient/Caregiver Goals Improve ability to sleep through the night, improve ROM PT-OP-C Subjective Start: 04/22/22 17:37 Freq: Status: Active Protocol: Document 05/07/22 11:15 DCW (Rec: 05/07/22 12:00 DCW [id number]) OP-PT Subjective Patient Comments Patient Comments I would say it is less sore than Wednesday. PT-OP-E Functional Tests Start: 04/22/22 17:37 Freq: Status: Active Protocol: Document 04/22/22 10:30 DCW (Rec: 04/22/22 17:56 DCW [id number]) Functional Tests Apley's Scratch Test Action 2- Left T2 Action 2- Right T1 Action 3- Left T9 Action 3- Right R PSIS PT-OP-F Manual Assessment Start: 04/22/22 17:37 Freq: Status: Active Protocol: Document 04/22/22 10:30 DCW (Rec: 04/22/22 17:56 DCW [id number]) Manual Assessments Joint Mobility Assessment Joint Mobility Assessment Significant limitations with passive joint mobility, severe grinding and popping noises, PROM largely no greater than limited AROM. Noticeable improvement with pain and mobility with moderate joint distraction PT-OP-K Range of Motion Start: 04/22/22 17:37 Freq: Status: Active Protocol: Document 04/22/22 10:30 DCW (Rec: 04/22/22 17:56 DCW [id number]) Shoulder Goniometric Range of Motion Shoulder Left Active Shoulder ROM WFL No Testing Position Sitting Flexion 160 Abduction 145 External Rotation at 0 degrees Abduction 52 Right Passive Testing Position Supine Flexion 102 Abduction 87 Comments PROM Flexion increased to 123? with distraction through GH Right Active Shoulder ROM WFL No Testing Position Sitting Flexion 92 Abduction 83 External Rotation at 0 degrees Abduction 35 Internal Rotation Behind Back (text) R PSIS PT-OP-L Special Tests Start: 04/22/22 17:37 Freq: Status: Active Protocol: Document 04/22/22 10:30 DCW (Rec: 04/22/22 17:56 DCW [id number]) Special Tests Shoulder Special Tests Passive ER Rotator Cuff Test Results Positive R Lift-Off Rotator Cuff Test Results Unable to position R arm [place] Impingement Test Results Positive R Grind Labrum Test Results Positive R Drop Arm Rotator Cuff Test Results Unable to position R arm Clunk Test Test Results Positive R Belly Press Test Results Positive R Apprehension Test Test Results Positive R AC Joint Compression Test Results Negative PT-OP-Q Treatments Start: 04/22/22 17:37 Freq: Status: Active Protocol: Document 05/07/22 11:15 DCW (Rec: 05/07/22 12:00 DCW [id number]) Cardio Equipment Upper Body Ergometer (UBE) Duration (Minutes) 5 Seat Position 14 Height 3 Gym Equipment Therapeutic Ball I's, Y's, T's Exercise Details Prone I's, Y's, and T's Ball Size/Color Green - 65 cm 1# Body Position Prone Therapeutic Exercises Supine Exercises Horizontal Ab/Ad Supine Exercise Name Horizontal Ab/Adduction Side bilateral Equipment Used PVC Serratus Punch Supine Exercise Name Serratus Punch Side bilateral Equipment Used PVC Shoulder Flexion Supine Exercise Name AAROM /c PVC Sitting Exercises GH PROM Sitting Exercise Name Pulleys - Flexion, Scaption Manual Therapy Treatment Soft Tissue Mobilization Parascapular Body Location R Parascapulars Mobilization Type Sustained Pressure,Trigger Point Release Intensity/Depth Moderate Body Position Supine Joint Mobilizations GH Joint R GH Direction Inferior Grade III Body Position Supine PT-OP-T Assessment and Plan Start: 04/22/22 17:37 Freq: Status: Active Protocol: Document 05/07/22 11:15 DCW (Rec: 05/07/22 12:00 DCW [id number]) Physical Therapy Assessment Impairments Impairments Activity Tolerance,Functional Activities,Functional Mobility ,Pain,Posture,ROM,Soft Tissue Mobility,Strength,Tone Goals Two Impairment Pt reports interrupted sleep due to pain nearly every night Custodial Goal (LTG) Pt to report return to normal sleep schedule at least five days a week without shoulder pain waking him up. LTG Duration 06/20/22 One Impairment Pt does not have an appropriate home exercise program Short Term Goal (STG) Pt to be independent and compliant with an appropriate HEP STG Duration 05/20/22 Assessment Summary Assessment Discussed importance of holding stretch long enough, pt agreeable to make changes to his HEP. Showing some improvement with general ROM. Physical Therapy Plan Frequency and Duration Frequency of Treatment 2x/Week Plan of Care Start Date 04/22/22 Plan of Care End Date 06/20/22 Therapeutic Interventions Therapeutic Interventions Home Exercise Program,Joint Mobilizations,Manual Therapy, Patient/Caregiver Education, Self-Care/Home Management,Soft Tissue Mobilization, Therapeutic Activities, Therapeutic Exercises Other Referrals/Consults Referrals/Consults Recommended Pt would likely benefit from advanced imaging on his right shoulder Next Visit Focus/Plan Next Note Type Treatment Note Next Visit Plan PROM/AROM, strengthening, STM
--- NOTE | 2022-05-11 11:58 | PT.OTN ---
Current Diagnoses Pain in right shoulder (05/11/22) Stiffness of right shoulder, not elsewhere classified (05/11/22) Physical Therapy Treatment Note PT-OP-A Visit Information Start: 04/22/22 17:37 Freq: Status: Active Protocol: Document 05/11/22 11:14 DCW (Rec: 05/11/22 11:58 DCW [id number]) Out-Patient Physical Therapy Visit Information Visit Information Visit Type Treatment Note Visit Start Time 11:15 Visit Stop Time 12:00 Total Visit Minutes 45 Visit Number 6 Number of HEMODIALYSIS PATIENT CARE SPECIALIST Visits 0 Evaluation Information Evaluation Date 04/22/22 PT-OP-B Current Condition Start: 04/22/22 17:37 Freq: Status: Active Protocol: Document 04/22/22 10:30 DCW (Rec: 04/22/22 17:56 DCW [id number]) Current Condition History of Current Condition Onset Date One year history Current Complaints Insidious onset of right shoulder pain and stiffness History of Current Condition Pt is a 66 year old male presenting with a one year history of right shoulder pain . Pt cannot remember any initial injury. Admits pain has worsened over the past year. Notes there is occasionally a painful popping or grinding sensation, and when he attempts to raise his arm up, it will sometimes feel like it gets stuck. Struggles to lift arm overhead or hold any amount of weight in an extended arm. Admits biggest problem is that is has started to limit his ability to sleep due to the pain. Treatment Goals Patient/Caregiver Goals Improve ability to sleep through the night, improve ROM PT-OP-C Subjective Start: 04/22/22 17:37 Freq: Status: Active Protocol: Document 05/11/22 11:14 DCW (Rec: 05/11/22 11:58 DCW [id number]) OP-PT Subjective Patient Comments Patient Comments Pt admits his shoulder is sore , he has been working on the exercises. PT-OP-E Functional Tests Start: 04/22/22 17:37 Freq: Status: Active Protocol: Document 04/22/22 10:30 DCW (Rec: 04/22/22 17:56 DCW [id number]) Functional Tests Apley's Scratch Test Action 2- Left T2 Action 2- Right T1 Action 3- Left T9 Action 3- Right R PSIS PT-OP-F Manual Assessment Start: 04/22/22 17:37 Freq: Status: Active Protocol: Document 04/22/22 10:30 DCW (Rec: 04/22/22 17:56 DCW [id number]) Manual Assessments Joint Mobility Assessment Joint Mobility Assessment Significant limitations with passive joint mobility, severe grinding and popping noises, PROM largely no greater than limited AROM. Noticeable improvement with pain and mobility with moderate joint distraction PT-OP-K Range of Motion Start: 04/22/22 17:37 Freq: Status: Active Protocol: Document 04/22/22 10:30 DCW (Rec: 04/22/22 17:56 DCW [id number]) Shoulder Goniometric Range of Motion Shoulder Left Active Shoulder ROM WFL No Testing Position Sitting Flexion 160 Abduction 145 External Rotation at 0 degrees Abduction 52 Right Passive Testing Position Supine Flexion 102 Abduction 87 Comments PROM Flexion increased to 123? with distraction through GH Right Active Shoulder ROM WFL No Testing Position Sitting Flexion 92 Abduction 83 External Rotation at 0 degrees Abduction 35 Internal Rotation Behind Back (text) R PSIS PT-OP-L Special Tests Start: 04/22/22 17:37 Freq: Status: Active Protocol: Document 04/22/22 10:30 DCW (Rec: 04/22/22 17:56 DCW [id number]) Special Tests Shoulder Special Tests Passive ER Rotator Cuff Test Results Positive R Lift-Off Rotator Cuff Test Results Unable to position R arm [place] Impingement Test Results Positive R Grind Labrum Test Results Positive R Drop Arm Rotator Cuff Test Results Unable to position R arm Clunk Test Test Results Positive R Belly Press Test Results Positive R Apprehension Test Test Results Positive R AC Joint Compression Test Results Negative PT-OP-Q Treatments Start: 04/22/22 17:37 Freq: Status: Active Protocol: Document 05/11/22 11:14 DCW (Rec: 05/11/22 11:58 DCW [id number]) Cardio Equipment Upper Body Ergometer (UBE) Duration (Minutes) 5 Seat Position 14 Height 3 Gym Equipment Therapeutic Ball I's, Y's, T's Exercise Details Prone I's, Y's, and T's Ball Size/Color Green - 65 cm 1# Body Position Prone Therapeutic Exercises Supine Exercises Circles Supine Exercise Name Moving UE in circles at 90 deg flexion Side right Resistance 1# Foam Roll Supine Exercise Name Pec stretch Horizontal Ab/Ad Supine Exercise Name Horizontal Ab/Adduction Side bilateral Equipment Used PVC Serratus Punch Supine Exercise Name Serratus Punch Side bilateral Equipment Used PVC Shoulder Flexion Supine Exercise Name AAROM /c PVC Standing Exercises Internal Rotation Standing Exercise Name Pullys - GH IR Side right Manual Therapy Treatment Soft Tissue Mobilization Parascapular Body Location R Parascapulars Mobilization Type Sustained Pressure,Trigger Point Release Intensity/Depth Moderate Body Position Supine Joint Mobilizations GH Joint R GH Direction Inferior Grade III Body Position Supine PT-OP-T Assessment and Plan Start: 04/22/22 17:37 Freq: Status: Active Protocol: Document 05/11/22 11:14 DCW (Rec: 05/11/22 11:58 DCW [id number]) Physical Therapy Assessment Impairments Impairments Activity Tolerance,Functional Activities,Functional Mobility ,Pain,Posture,ROM,Soft Tissue Mobility,Strength,Tone Goals Two Impairment Pt reports interrupted sleep due to pain nearly every night Alf Goal (LTG) Pt to report return to normal sleep schedule at least five days a week without shoulder pain waking him up. LTG Duration 06/20/22 One Impairment Pt does not have an appropriate home exercise program Short Term Goal (STG) Pt to be independent and compliant with an appropriate HEP STG Duration 05/20/22 Assessment Summary Assessment Pt pretty significantly limited with IR stretching today, additionally continues to be fairly severely limited with PROM flexion and abduction, consistent rubbing at GH joint with movement. Physical Therapy Plan Frequency and Duration Frequency of Treatment 2x/Week Plan of Care Start Date 04/22/22 Plan of Care End Date 06/20/22 Therapeutic Interventions Therapeutic Interventions Home Exercise Program,Joint Mobilizations,Manual Therapy, Patient/Caregiver Education, Self-Care/Home Management,Soft Tissue Mobilization, Therapeutic Activities, Therapeutic Exercises Other Referrals/Consults Referrals/Consults Recommended Pt would likely benefit from advanced imaging on his right shoulder Next Visit Focus/Plan Next Note Type Treatment Note Next Visit Plan PROM/AROM, strengthening, STM
--- NOTE | 2022-05-14 12:03 | PT.OTN ---
Current Diagnoses Pain in right shoulder (05/14/22) Stiffness of right shoulder, not elsewhere classified (05/14/22) Physical Therapy Treatment Note PT-OP-A Visit Information Start: 04/22/22 17:37 Freq: Status: Active Protocol: Document 05/14/22 11:15 DCW (Rec: 05/14/22 12:03 DCW [id number]) Out-Patient Physical Therapy Visit Information Visit Information Visit Type Treatment Note Visit Start Time 11:15 Visit Stop Time 12:00 Total Visit Minutes 45 Visit Number 7 Number of AUDIO VISUAL TECHNICIAN Visits 0 Evaluation Information Evaluation Date 04/22/22 PT-OP-B Current Condition Start: 04/22/22 17:37 Freq: Status: Active Protocol: Document 04/22/22 10:30 DCW (Rec: 04/22/22 17:56 DCW [id number]) Current Condition History of Current Condition Onset Date One year history Current Complaints Insidious onset of right shoulder pain and stiffness History of Current Condition Pt is a 66 year old male presenting with a one year history of right shoulder pain . Pt cannot remember any initial injury. Admits pain has worsened over the past year. Notes there is occasionally a painful popping or grinding sensation, and when he attempts to raise his arm up, it will sometimes feel like it gets stuck. Struggles to lift arm overhead or hold any amount of weight in an extended arm. Admits biggest problem is that is has started to limit his ability to sleep due to the pain. Treatment Goals Patient/Caregiver Goals Improve ability to sleep through the night, improve ROM PT-OP-C Subjective Start: 04/22/22 17:37 Freq: Status: Active Protocol: Document 05/14/22 11:15 DCW (Rec: 05/14/22 12:03 DCW [id number]) OP-PT Subjective Patient Comments Patient Comments I'm less sore than what I have been. PT-OP-E Functional Tests Start: 04/22/22 17:37 Freq: Status: Active Protocol: Document 04/22/22 10:30 DCW (Rec: 04/22/22 17:56 DCW [id number]) Functional Tests Apley's Scratch Test Action 2- Left T2 Action 2- Right T1 Action 3- Left T9 Action 3- Right R PSIS PT-OP-F Manual Assessment Start: 04/22/22 17:37 Freq: Status: Active Protocol: Document 04/22/22 10:30 DCW (Rec: 04/22/22 17:56 DCW [id number]) Manual Assessments Joint Mobility Assessment Joint Mobility Assessment Significant limitations with passive joint mobility, severe grinding and popping noises, PROM largely no greater than limited AROM. Noticeable improvement with pain and mobility with moderate joint distraction PT-OP-K Range of Motion Start: 04/22/22 17:37 Freq: Status: Active Protocol: Document 04/22/22 10:30 DCW (Rec: 04/22/22 17:56 DCW [id number]) Shoulder Goniometric Range of Motion Shoulder Left Active Shoulder ROM WFL No Testing Position Sitting Flexion 160 Abduction 145 External Rotation at 0 degrees Abduction 52 Right Passive Testing Position Supine Flexion 102 Abduction 87 Comments PROM Flexion increased to 123? with distraction through GH Right Active Shoulder ROM WFL No Testing Position Sitting Flexion 92 Abduction 83 External Rotation at 0 degrees Abduction 35 Internal Rotation Behind Back (text) R PSIS PT-OP-L Special Tests Start: 04/22/22 17:37 Freq: Status: Active Protocol: Document 04/22/22 10:30 DCW (Rec: 04/22/22 17:56 DCW [id number]) Special Tests Shoulder Special Tests Passive ER Rotator Cuff Test Results Positive R Lift-Off Rotator Cuff Test Results Unable to position R arm [place] Impingement Test Results Positive R Grind Labrum Test Results Positive R Drop Arm Rotator Cuff Test Results Unable to position R arm Clunk Test Test Results Positive R Belly Press Test Results Positive R Apprehension Test Test Results Positive R AC Joint Compression Test Results Negative PT-OP-Q Treatments Start: 04/22/22 17:37 Freq: Status: Active Protocol: Document 05/14/22 11:15 DCW (Rec: 05/14/22 12:03 DCW [id number]) Cardio Equipment Upper Body Ergometer (UBE) Duration (Minutes) 5 Seat Position 14 Height 3 Therapeutic Exercises Supine Exercises Horizontal Ab/Ad Supine Exercise Name Horizontal Ab/Adduction Side bilateral Equipment Used PVC Shoulder Flexion Supine Exercise Name AAROM /c PVC Standing Exercises Wall Push-ups Standing Exercise Name Wall Push-ups Reps/Minutes x15 Comments W and <> hand positions Internal Rotation Standing Exercise Name Pullys - GH IR Side right Other Exercises Resisted ambulation Other Exercise Name Resisted UE side-stepping Resistance Green Manual Therapy Treatment Soft Tissue Mobilization Parascapular Body Location R Parascapulars Mobilization Type Sustained Pressure,Trigger Point Release Intensity/Depth Moderate Body Position Supine Joint Mobilizations GH Joint R GH Direction Inferior Grade III Body Position Supine PT-OP-T Assessment and Plan Start: 04/22/22 17:37 Freq: Status: Active Protocol: Document 05/14/22 11:15 DCW (Rec: 05/14/22 12:03 DCW [id number]) Physical Therapy Assessment Impairments Impairments Activity Tolerance,Functional Activities,Functional Mobility ,Pain,Posture,ROM,Soft Tissue Mobility,Strength,Tone Goals Two Impairment Pt reports interrupted sleep due to pain nearly every night Group Home Goal (LTG) Pt to report return to normal sleep schedule at least five days a week without shoulder pain waking him up. LTG Duration 06/20/22 One Impairment Pt does not have an appropriate home exercise program Short Term Goal (STG) Pt to be independent and compliant with an appropriate HEP STG Duration 05/20/22 Assessment Summary Assessment Pt still not progressing quickly, is able to report decreased pain and soreness at night, however still not sleeping well, limited with ROM. May benefit from return to PCP for imaging if he continues to show minimal progression. Physical Therapy Plan Frequency and Duration Frequency of Treatment 2x/Week Plan of Care Start Date 04/22/22 Plan of Care End Date 06/20/22 Therapeutic Interventions Therapeutic Interventions Home Exercise Program,Joint Mobilizations,Manual Therapy, Patient/Caregiver Education, Self-Care/Home Management,Soft Tissue Mobilization, Therapeutic Activities, Therapeutic Exercises Other Referrals/Consults Referrals/Consults Recommended Pt would likely benefit from advanced imaging on his right shoulder Next Visit Focus/Plan Next Note Type Treatment Note Next Visit Plan PROM/AROM, strengthening, STM
--- NOTE | 2022-05-18 12:00 | PT.OTN ---
Current Diagnoses Pain in right shoulder (05/18/22) Stiffness of right shoulder, not elsewhere classified (05/18/22) Physical Therapy Treatment Note PT-OP-A Visit Information Start: 04/22/22 17:37 Freq: Status: Active Protocol: Document 05/18/22 11:15 DCW (Rec: 05/18/22 12:00 DCW [id number]) Out-Patient Physical Therapy Visit Information Visit Information Visit Type Treatment Note Visit Start Time 11:15 Visit Stop Time 12:00 Total Visit Minutes 45 Visit Number 8 Number of CLINICAL TEAM MANAGER Visits 0 Evaluation Information Evaluation Date 04/22/22 PT-OP-B Current Condition Start: 04/22/22 17:37 Freq: Status: Active Protocol: Document 04/22/22 10:30 DCW (Rec: 04/22/22 17:56 DCW [id number]) Current Condition History of Current Condition Onset Date One year history Current Complaints Insidious onset of right shoulder pain and stiffness History of Current Condition Pt is a 66 year old male presenting with a one year history of right shoulder pain . Pt cannot remember any initial injury. Admits pain has worsened over the past year. Notes there is occasionally a painful popping or grinding sensation, and when he attempts to raise his arm up, it will sometimes feel like it gets stuck. Struggles to lift arm overhead or hold any amount of weight in an extended arm. Admits biggest problem is that is has started to limit his ability to sleep due to the pain. Treatment Goals Patient/Caregiver Goals Improve ability to sleep through the night, improve ROM PT-OP-C Subjective Start: 04/22/22 17:37 Freq: Status: Active Protocol: Document 05/18/22 11:15 DCW (Rec: 05/18/22 12:00 DCW [id number]) OP-PT Subjective Patient Comments Patient Comments I probably overdid it on Wednesday, so it was a little sore yesterday. I still did my stretching exercises, but I noticed I couldn't get the full motion that I was getting on Wednesday. It was a little better today. PT-OP-E Functional Tests Start: 04/22/22 17:37 Freq: Status: Active Protocol: Document 04/22/22 10:30 DCW (Rec: 04/22/22 17:56 DCW [id number]) Functional Tests Apley's Scratch Test Action 2- Left T2 Action 2- Right T1 Action 3- Left T9 Action 3- Right R PSIS PT-OP-F Manual Assessment Start: 04/22/22 17:37 Freq: Status: Active Protocol: Document 04/22/22 10:30 DCW (Rec: 04/22/22 17:56 DCW [id number]) Manual Assessments Joint Mobility Assessment Joint Mobility Assessment Significant limitations with passive joint mobility, severe grinding and popping noises, PROM largely no greater than limited AROM. Noticeable improvement with pain and mobility with moderate joint distraction PT-OP-K Range of Motion Start: 04/22/22 17:37 Freq: Status: Active Protocol: Document 04/22/22 10:30 DCW (Rec: 04/22/22 17:56 DCW [id number]) Shoulder Goniometric Range of Motion Shoulder Left Active Shoulder ROM WFL No Testing Position Sitting Flexion 160 Abduction 145 External Rotation at 0 degrees Abduction 52 Right Passive Testing Position Supine Flexion 102 Abduction 87 Comments PROM Flexion increased to 123? with distraction through GH Right Active Shoulder ROM WFL No Testing Position Sitting Flexion 92 Abduction 83 External Rotation at 0 degrees Abduction 35 Internal Rotation Behind Back (text) R PSIS PT-OP-L Special Tests Start: 04/22/22 17:37 Freq: Status: Active Protocol: Document 04/22/22 10:30 DCW (Rec: 04/22/22 17:56 DCW [id number]) Special Tests Shoulder Special Tests Passive ER Rotator Cuff Test Results Positive R Lift-Off Rotator Cuff Test Results Unable to position R arm [place] Impingement Test Results Positive R Grind Labrum Test Results Positive R Drop Arm Rotator Cuff Test Results Unable to position R arm Clunk Test Test Results Positive R Belly Press Test Results Positive R Apprehension Test Test Results Positive R AC Joint Compression Test Results Negative PT-OP-Q Treatments Start: 04/22/22 17:37 Freq: Status: Active Protocol: Document 05/18/22 11:15 DCW (Rec: 05/18/22 12:00 DCW [id number]) Cardio Equipment Upper Body Ergometer (UBE) Duration (Minutes) 5 Seat Position 14 Height 3 Therapeutic Exercises Supine Exercises Circles Supine Exercise Name Moving UE in circles at 90 deg flexion Side right Resistance 3# Standing Exercises Wall Push-ups Standing Exercise Name Wall Push-ups Reps/Minutes x15 Comments W and <> hand positions Internal Rotation Standing Exercise Name Pullys - GH IR Side right Other Exercises Resisted ambulation Other Exercise Name Resisted UE side-stepping Resistance Green Manual Therapy Treatment Soft Tissue Mobilization Parascapular Body Location R Parascapulars Mobilization Type Sustained Pressure,Trigger Point Release Intensity/Depth Moderate Body Position Supine Joint Mobilizations GH Joint R GH Direction Inferior Grade III Body Position Supine PT-OP-T Assessment and Plan Start: 04/22/22 17:37 Freq: Status: Active Protocol: Document 05/18/22 11:15 DCW (Rec: 05/18/22 12:00 DCW [id number]) Physical Therapy Assessment Impairments Impairments Activity Tolerance,Functional Activities,Functional Mobility ,Pain,Posture,ROM,Soft Tissue Mobility,Strength,Tone Goals Two Impairment Pt reports interrupted sleep due to pain nearly every night Centrifugal Casting Machine Tender Goal (LTG) Pt to report return to normal sleep schedule at least five days a week without shoulder pain waking him up. 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 Complaints of continued soreness along length of supraspinatus. Physical Therapy Plan Frequency and Duration Frequency of Treatment 2x/Week Plan of Care Start Date 04/22/22 Plan of Care End Date 06/20/22 Therapeutic Interventions Therapeutic Interventions Home Exercise Program,Joint Mobilizations,Manual Therapy, Patient/Caregiver Education, Self-Care/Home Management,Soft Tissue Mobilization, Therapeutic Activities, Therapeutic Exercises Other Referrals/Consults Referrals/Consults Recommended Pt would likely benefit from advanced imaging on his right shoulder Next Visit Focus/Plan Next Note Type Treatment Note Next Visit Plan PROM/AROM, strengthening, STM
--- NOTE | 2022-05-27 15:12 | PT.OTN ---
Current Diagnoses Pain in right shoulder (05/27/22) Stiffness of right shoulder, not elsewhere classified (05/27/22) Physical Therapy Treatment Note PT-OP-A Visit Information Start: 04/22/22 17:37 Freq: Status: Active Protocol: Document 05/27/22 14:30 DCW (Rec: 05/27/22 15:12 DCW [id number]) Out-Patient Physical Therapy Visit Information Visit Information Visit Type Treatment Note Visit Start Time 14:30 Visit Stop Time 15:15 Total Visit Minutes 45 Visit Number 9 Number of CHIEF COMMERCIAL OFFICER Visits 0 Evaluation Information Evaluation Date 04/22/22 PT-OP-B Current Condition Start: 04/22/22 17:37 Freq: Status: Active Protocol: Document 04/22/22 10:30 DCW (Rec: 04/22/22 17:56 DCW [id number]) Current Condition History of Current Condition Onset Date One year history Current Complaints Insidious onset of right shoulder pain and stiffness History of Current Condition Pt is a 66 year old male presenting with a one year history of right shoulder pain . Pt cannot remember any initial injury. Admits pain has worsened over the past year. Notes there is occasionally a painful popping or grinding sensation, and when he attempts to raise his arm up, it will sometimes feel like it gets stuck. Struggles to lift arm overhead or hold any amount of weight in an extended arm. Admits biggest problem is that is has started to limit his ability to sleep due to the pain. Treatment Goals Patient/Caregiver Goals Improve ability to sleep through the night, improve ROM PT-OP-C Subjective Start: 04/22/22 17:37 Freq: Status: Active Protocol: Document 05/27/22 14:30 DCW (Rec: 05/27/22 15:12 DCW [id number]) OP-PT Subjective Patient Comments Patient Comments I've been good about doing the exercises. It's still sore at night, but I'm able to get through my day. PT-OP-E Functional Tests Start: 04/22/22 17:37 Freq: Status: Active Protocol: Document 04/22/22 10:30 DCW (Rec: 04/22/22 17:56 DCW [id number]) Functional Tests Apley's Scratch Test Action 2- Left T2 Action 2- Right T1 Action 3- Left T9 Action 3- Right R PSIS PT-OP-F Manual Assessment Start: 04/22/22 17:37 Freq: Status: Active Protocol: Document 04/22/22 10:30 DCW (Rec: 04/22/22 17:56 DCW [id number]) Manual Assessments Joint Mobility Assessment Joint Mobility Assessment Significant limitations with passive joint mobility, severe grinding and popping noises, PROM largely no greater than limited AROM. Noticeable improvement with pain and mobility with moderate joint distraction PT-OP-K Range of Motion Start: 04/22/22 17:37 Freq: Status: Active Protocol: Document 04/22/22 10:30 DCW (Rec: 04/22/22 17:56 DCW [id number]) Shoulder Goniometric Range of Motion Shoulder Left Active Shoulder ROM WFL No Testing Position Sitting Flexion 160 Abduction 145 External Rotation at 0 degrees Abduction 52 Right Passive Testing Position Supine Flexion 102 Abduction 87 Comments PROM Flexion increased to 123? with distraction through GH Right Active Shoulder ROM WFL No Testing Position Sitting Flexion 92 Abduction 83 External Rotation at 0 degrees Abduction 35 Internal Rotation Behind Back (text) R PSIS PT-OP-L Special Tests Start: 04/22/22 17:37 Freq: Status: Active Protocol: Document 04/22/22 10:30 DCW (Rec: 04/22/22 17:56 DCW [id number]) Special Tests Shoulder Special Tests Passive ER Rotator Cuff Test Results Positive R Lift-Off Rotator Cuff Test Results Unable to position R arm [place] Chencho Impingement Test Results Positive R Grind Labrum Test Results Positive R Drop Arm Rotator Cuff Test Results Unable to position R arm Clunk Test Test Results Positive R Belly Press Test Results Positive R Apprehension Test Test Results Positive R AC Joint Compression Test Results Negative PT-OP-Q Treatments Start: 04/22/22 17:37 Freq: Status: Active Protocol: Document 05/27/22 14:30 DCW (Rec: 05/27/22 15:12 DCW [id number]) Cardio Equipment Upper Body Ergometer (UBE) Duration (Minutes) 5 Seat Position 14 Height 3 Gym Equipment Therapeutic Ball Ball stabilization Exercise Details Ball stabilization vs perturbation Ball Size/Color Blue - 45 cm Body Position Supine Therapeutic Exercises Standing Exercises Wall Push-ups Standing Exercise Name Wall Push-ups Reps/Minutes x15 Comments W and <> hand positions Internal Rotation Standing Exercise Name Pulleys - GH IR Side right Other Exercises Resisted ambulation Other Exercise Name Resisted UE side-stepping Resistance Green Manual Therapy Treatment Soft Tissue Mobilization Parascapular Body Location R Parascapulars Mobilization Type Sustained Pressure,Trigger Point Release Intensity/Depth Moderate Body Position Supine Joint Mobilizations GH Joint R GH Direction Inferior Grade III Body Position Supine PT-OP-T Assessment and Plan Start: 04/22/22 17:37 Freq: Status: Active Protocol: Document 05/27/22 14:30 DCW (Rec: 05/27/22 15:12 DCW [id number]) Physical Therapy Assessment Impairments Impairments Activity Tolerance,Functional Activities,Functional Mobility ,Pain,Posture,ROM,Soft Tissue Mobility,Strength,Tone Goals Two Impairment Pt reports interrupted sleep due to pain nearly every night Industrial Psychology Professor Goal (LTG) Pt to report return to normal sleep schedule at least five days a week without shoulder pain waking him up. LTG Duration 06/20/22 One Impairment Pt does not have an appropriate home exercise program Short Term Goal (STG) Pt to be independent and compliant with an appropriate HEP STG Duration 05/20/22 Assessment Summary Assessment Pt better than last week, but still quite limited with both PROM and AROM, especially with IR/ER, but flexion and abduction also continue to show fairly significant resistance to increased stretching. Physical Therapy Plan Frequency and Duration Frequency of Treatment 2x/Week Plan of Care Start Date 04/22/22 Plan of Care End Date 06/20/22 Therapeutic Interventions Therapeutic Interventions Home Exercise Program,Joint Mobilizations,Manual Therapy, Patient/Caregiver Education, Self-Care/Home Management,Soft Tissue Mobilization, Therapeutic Activities, Therapeutic Exercises Other Referrals/Consults Referrals/Consults Recommended Pt would likely benefit from advanced imaging on his right shoulder Next Visit Focus/Plan Next Note Type Treatment Note Next Visit Plan PROM/AROM, strengthening, STM
--- NOTE | 2022-06-24 12:43 | PT.OTN ---
Current Diagnoses Pain in right shoulder (06/24/22) Stiffness of right shoulder, not elsewhere classified (06/24/22) Physical Therapy Treatment Note PT-OP-A Visit Information Start: 04/22/22 17:37 Freq: Status: Active Protocol: Document 06/24/22 12:02 DCW (Rec: 06/24/22 12:43 DCW [id number]) Out-Patient Physical Therapy Visit Information Visit Information Visit Type Discharge Summary Visit Start Time 12:02 Visit Stop Time 12:45 Total Visit Minutes 43 Visit Number 10 Number of SUSHI CHEF Visits 0 Evaluation Information Evaluation Date 04/22/22 PT-OP-B Current Condition Start: 04/22/22 17:37 Freq: Status: Active Protocol: Document 04/22/22 10:30 DCW (Rec: 04/22/22 17:56 DCW [id number]) Current Condition History of Current Condition Onset Date One year history Current Complaints Insidious onset of right shoulder pain and stiffness History of Current Condition Pt is a 66 year old male presenting with a one year history of right shoulder pain . Pt cannot remember any initial injury. Admits pain has worsened over the past year. Notes there is occasionally a painful popping or grinding sensation, and when he attempts to raise his arm up, it will sometimes feel like it gets stuck. Struggles to lift arm overhead or hold any amount of weight in an extended arm. Admits biggest problem is that is has started to limit his ability to sleep due to the pain. Treatment Goals Patient/Caregiver Goals Improve ability to sleep through the night, improve ROM PT-OP-C Subjective Start: 04/22/22 17:37 Freq: Status: Active Protocol: Document 06/24/22 12:02 DCW (Rec: 06/24/22 12:43 DCW [id number]) OP-PT Subjective Patient Comments Patient Comments Since last visit, pt met with ortho, discussed possible TSA, pt expecting to go through with it, would like to review HEP and then discharge following today's visit. PT-OP-E Functional Tests Start: 04/22/22 17:37 Freq: Status: Active Protocol: Document 06/24/22 12:02 DCW (Rec: 06/24/22 12:20 DCW [id number]) Functional Tests Damieney's Scratch Test Action 2- Left T3 Action 2- Right T3 Action 3- Left T9 Action 3- Right R PSIS PT-OP-F Manual Assessment Start: 04/22/22 17:37 Freq: Status: Active Protocol: Document 06/24/22 12:02 DCW (Rec: 06/24/22 12:20 DCW [id number]) Manual Assessments Joint Mobility Assessment Joint Mobility Assessment Significant limitations with passive joint mobility, severe grinding and popping noises, PROM largely no greater than limited AROM. PT-OP-K Range of Motion Start: 04/22/22 17:37 Freq: Status: Active Protocol: Document 06/24/22 12:02 DCW (Rec: 06/24/22 12:20 DCW [id number]) Shoulder Goniometric Range of Motion Shoulder Right Passive Testing Position Standing Flexion 108 Abduction 98 Right Active Shoulder ROM WFL No Testing Position Sitting Flexion 102 Abduction 84 External Rotation at 0 degrees Abduction 50 Internal Rotation Behind Back (text) R PSIS PT-OP-L Special Tests Start: 04/22/22 17:37 Freq: Status: Active Protocol: Document 06/24/22 12:02 DCW (Rec: 06/24/22 12:20 DCW [id number]) Special Tests Shoulder Special Tests Passive ER Rotator Cuff Test Results Positive R [place] Chen[place] Impingement Test Results Positive R Grind Labrum Test Results Positive R Clunk Test Test Results Positive R Belly Press Test Results Negative Apprehension Test Test Results Positive R AC Joint Compression Test Results Negative PT-OP-Q Treatments Start: 04/22/22 17:37 Freq: Status: Active Protocol: Document 06/24/22 12:02 DCW (Rec: 06/24/22 12:43 DCW [id number]) Cardio Equipment Upper Body Ergometer (UBE) Duration (Minutes) 5 Seat Position 14 Height 3 Therapeutic Exercises Standing Exercises Wall Push-ups Standing Exercise Name Wall Push-ups Reps/Minutes x15 Comments W and <> hand positions Internal Rotation Standing Exercise Name Towel stretch Pec Stretch Standing Exercise Name Doorway stretch 45 deg abd Side bilateral Rows Standing Exercise Name Rows Side bilateral Resistance Lv 3 Adduction Standing Exercise Name Shoulder Adduction Side bilateral Resistance Lv 3 Extension Standing Exercise Name Shoulder Extension Side bilateral Resistance Lv 3 Shoulder Abduction Standing Exercise Name Shoulder Abduction Side bilateral Resistance Lv 3 PT-OP-T Assessment and Plan Start: 04/22/22 17:37 Freq: Status: Active Protocol: Document 06/24/22 12:02 DCW (Rec: 06/24/22 12:43 DCW [id number]) Physical Therapy Assessment Impairments Impairments Activity Tolerance,Functional Activities,Functional Mobility ,Pain,Posture,ROM,Soft Tissue Mobility,Strength,Tone Goals Two Impairment Pt reports interrupted sleep due to pain nearly every night Prison Goal (LTG) Pt to report return to normal sleep schedule at least five days a week without shoulder pain waking him up. LTG Duration 06/20/22 One Impairment Pt does not have an appropriate home exercise program Short Term Goal (STG) Pt to be independent and compliant with an appropriate HEP STG Duration 05/20/22 Assessment Summary Assessment Discharge from skilled therapy at this time. Pt moving forward with making plans for TSA, feels comfortable with current HEP . ROM has not progressed much since initial evaluation Physical Therapy Plan Frequency and Duration Frequency of Treatment 2x/Week Plan of Care Start Date 04/22/22 Plan of Care End Date 06/20/22 Therapeutic Interventions Therapeutic Interventions Home Exercise Program,Joint Mobilizations,Manual Therapy, Patient/Caregiver Education, Self-Care/Home Management,Soft Tissue Mobilization, Therapeutic Activities, Therapeutic Exercises Discharge Physical Therapy Discharge Reasons Plateau in Progress Next Visit Focus/Plan Next Note Type Discharge Summary
--- NOTE | 2022-06-24 12:45 | PT.OTN ---
Current Diagnoses Pain in right shoulder (06/24/22) Stiffness of right shoulder, not elsewhere classified (06/24/22) Physical Therapy Treatment Note PT-OP-A Visit Information Start: 04/22/22 17:37 Freq: Status: Active Protocol: Document 06/24/22 12:02 DCW (Rec: 06/24/22 12:43 DCW [id number]) Out-Patient Physical Therapy Visit Information Visit Information Visit Type Discharge Summary Visit Start Time 12:02 Visit Stop Time 12:45 Total Visit Minutes 43 Visit Number 10 Number of FIRESETTER Visits 0 Evaluation Information Evaluation Date 04/22/22 PT-OP-B Current Condition Start: 04/22/22 17:37 Freq: Status: Active Protocol: Document 04/22/22 10:30 DCW (Rec: 04/22/22 17:56 DCW [id number]) Current Condition History of Current Condition Onset Date One year history Current Complaints Insidious onset of right shoulder pain and stiffness History of Current Condition Pt is a 66 year old male presenting with a one year history of right shoulder pain . Pt cannot remember any initial injury. Admits pain has worsened over the past year. Notes there is occasionally a painful popping or grinding sensation, and when he attempts to raise his arm up, it will sometimes feel like it gets stuck. Struggles to lift arm overhead or hold any amount of weight in an extended arm. Admits biggest problem is that is has started to limit his ability to sleep due to the pain. Treatment Goals Patient/Caregiver Goals Improve ability to sleep through the night, improve ROM PT-OP-C Subjective Start: 04/22/22 17:37 Freq: Status: Active Protocol: Document 06/24/22 12:02 DCW (Rec: 06/24/22 12:43 DCW [id number]) OP-PT Subjective Patient Comments Patient Comments Since last visit, pt met with ortho, discussed possible TSA, pt expecting to go through with it, would like to review HEP and then discharge following today's visit. PT-OP-E Functional Tests Start: 04/22/22 17:37 Freq: Status: Active Protocol: Document 06/24/22 12:02 DCW (Rec: 06/24/22 12:20 DCW [id number]) Functional Tests Damieney's Scratch Test Action 2- Left T3 Action 2- Right T3 Action 3- Left T9 Action 3- Right R PSIS PT-OP-F Manual Assessment Start: 04/22/22 17:37 Freq: Status: Active Protocol: Document 06/24/22 12:02 DCW (Rec: 06/24/22 12:20 DCW [id number]) Manual Assessments Joint Mobility Assessment Joint Mobility Assessment Significant limitations with passive joint mobility, severe grinding and popping noises, PROM largely no greater than limited AROM. PT-OP-K Range of Motion Start: 04/22/22 17:37 Freq: Status: Active Protocol: Document 06/24/22 12:02 DCW (Rec: 06/24/22 12:20 DCW [id number]) Shoulder Goniometric Range of Motion Shoulder Right Passive Testing Position Standing Flexion 108 Abduction 98 Right Active Shoulder ROM WFL No Testing Position Sitting Flexion 102 Abduction 84 External Rotation at 0 degrees Abduction 50 Internal Rotation Behind Back (text) R PSIS PT-OP-L Special Tests Start: 04/22/22 17:37 Freq: Status: Active Protocol: Document 06/24/22 12:02 DCW (Rec: 06/24/22 12:20 DCW [id number]) Special Tests Shoulder Special Tests Passive ER Rotator Cuff Test Results Positive R [place] Chencho Impingement Test Results Positive R Grind Labrum Test Results Positive R Clunk Test Test Results Positive R Belly Press Test Results Negative Apprehension Test Test Results Positive R AC Joint Compression Test Results Negative PT-OP-Q Treatments Start: 04/22/22 17:37 Freq: Status: Active Protocol: Document 06/24/22 12:02 DCW (Rec: 06/24/22 12:43 DCW [id number]) Cardio Equipment Upper Body Ergometer (UBE) Duration (Minutes) 5 Seat Position 14 Height 3 Therapeutic Exercises Standing Exercises Wall Push-ups Standing Exercise Name Wall Push-ups Reps/Minutes x15 Comments W and <> hand positions Internal Rotation Standing Exercise Name Towel stretch Pec Stretch Standing Exercise Name Doorway stretch 45 deg abd Side bilateral Rows Standing Exercise Name Rows Side bilateral Resistance Lv 3 Adduction Standing Exercise Name Shoulder Adduction Side bilateral Resistance Lv 3 Extension Standing Exercise Name Shoulder Extension Side bilateral Resistance Lv 3 Shoulder Abduction Standing Exercise Name Shoulder Abduction Side bilateral Resistance Lv 3 PT-OP-T Assessment and Plan Start: 04/22/22 17:37 Freq: Status: Active Protocol: Document 06/24/22 12:02 DCW (Rec: 06/24/22 12:43 DCW [id number]) Physical Therapy Assessment Impairments Impairments Activity Tolerance,Functional Activities,Functional Mobility ,Pain,Posture,ROM,Soft Tissue Mobility,Strength,Tone Goals Two Impairment Pt reports interrupted sleep due to pain nearly every night Longterm Goal (LTG) Pt to report return to normal sleep schedule at least five days a week without shoulder pain waking him up. LTG Duration 06/20/22 One Impairment Pt does not have an appropriate home exercise program Short Term Goal (STG) Pt to be independent and compliant with an appropriate HEP STG Duration 05/20/22 Assessment Summary Assessment Discharge from skilled therapy at this time. Pt moving forward with making plans for TSA, feels comfortable with current HEP . ROM has not progressed much since initial evaluation Physical Therapy Plan Frequency and Duration Frequency of Treatment 2x/Week Plan of Care Start Date 06/24/22 Plan of Care End Date 06/25/22 Therapeutic Interventions Therapeutic Interventions Home Exercise Program,Joint Mobilizations,Manual Therapy, Patient/Caregiver Education, Self-Care/Home Management,Soft Tissue Mobilization, Therapeutic Activities, Therapeutic Exercises Discharge Physical Therapy Discharge Reasons Plateau in Progress Next Visit Focus/Plan Next Note Type Discharge Summary
--- NOTE | 2022-06-24 12:45 | PT.OPPOC ---
Physical, Occupational & Speech Therapy At [facility] Current Diagnoses Pain in right shoulder (06/24/22) Stiffness of right shoulder, not elsewhere classified (06/24/22) Visit Care Team Role Provider Type DARNELL English Attending Provider Advanced Director Consumer Affairs Family Provider Primary Care Provider Referring Provider Specialty: Family Practice Address: [address] [place] [address], [facility] Email: [email or web address] Plan Of Care PT-OP-T Assessment and Plan Start: 04/22/22 17:37 Freq: Status: Active Protocol: Document 06/24/22 12:02 DCW (Rec: 06/24/22 12:43 DCW [id number]) Physical Therapy Assessment Impairments Impairments Activity Tolerance,Functional Activities,Functional Mobility ,Pain,Posture,ROM,Soft Tissue Mobility,Strength,Tone Goals Two Impairment Pt reports interrupted sleep due to pain nearly every night Fortune Cookie Maker Goal (LTG) Pt to report return to normal sleep schedule at least five days a week without shoulder pain waking him up. LTG Duration 06/20/22 One Impairment Pt does not have an appropriate home exercise program Short Term Goal (STG) Pt to be independent and compliant with an appropriate HEP STG Duration 05/20/22 Assessment Summary Assessment Discharge from skilled therapy at this time. Pt moving forward with making plans for TSA, feels comfortable with current HEP . ROM has not progressed much since initial evaluation Physical Therapy Plan Frequency and Duration Frequency of Treatment 2x/Week Plan of Care Start Date 06/24/22 Plan of Care End Date 06/25/22 Therapeutic Interventions Therapeutic Interventions Home Exercise Program,Joint Mobilizations,Manual Therapy, Patient/Caregiver Education, Self-Care/Home Management,Soft Tissue Mobilization, Therapeutic Activities, Therapeutic Exercises Discharge Physical Therapy Discharge Reasons Plateau in Progress Next Visit Focus/Plan Next Note Type Discharge Summary Plan of Care Dates Plan of Care Start Date 06/24/22 Plan of Care End Date 06/25/22 Electronically Signed by: Juna Lindquist, PT 06/24/22 [id number] If you are in agreement with this Plan of Care, please return a signed and dated copy. I have reviewed this Plan of Care and certify that the skilled therapy services above are required to meet the patient?s needs. Physician Signature Date Printed Name and Credentials Clinical Instructor Signature Printed Name and Credentials
== END 2022-06-24 12:51 | disposition home or self-care (01) ==
LOC: PHYS 12:00
PROVIDERS: Family Provider Nurse Practitioner; PCP Nurse Practitioner; Referring Provider Nurse Practitioner; Visit Provider Nurse Practitioner
DX: M25.511 Pain in right shoulder (principal); M25.611 Stiffness of right shoulder, not elsewhere classified
CPT/HCPCS: 97110; 97140; 97162

== ENCOUNTER 2022-09-11 10:30 | Outpatient (RCR) | payer MEDICARE, SELFPAY ==
--- NOTE | 2022-07-02 10:30 | PT.OIE ---
Current Diagnoses Lumbago with sciatica, left side (07/02/22) Low back pain, unspecified (07/02/22) Pain in left leg (07/02/22) Past Medical History (Last Reviewed 06/25/22 @ 14:33 by DARNELL English) Cataracts, bilateral (~2014) Chicken pox (~1960) Dehydration determined by examination Hearing deficit Labral tear of shoulder Orthostatic dizziness Vision disorder Past Surgical History (Last Reviewed 06/25/22 @ 14:33 by DARNELL English) Anesthesia History of tonsillectomy (~1963) Rupture Achilles tendon (~1997) Visit Care Team Role Provider Type DARNELL English Attending Provider Advanced Food And Beverage Checker Family Provider Primary Care Provider Referring Provider Specialty: Family Practice Address: [address] [place] [address], [facility] Email: [email or web address] Physical Therapy Initial Evaluation PT-OP-A Visit Information Start: 07/02/22 16:25 Freq: Status: Active Protocol: Document 07/02/22 09:45 DCW (Rec: 07/02/22 16:44 DCW [id number]) Out-Patient Physical Therapy Visit Information Visit Information Visit Type Initial Evaluation Visit Start Time 09:45 Visit Stop Time 10:30 Total Visit Minutes 45 Visit Number 1 Number of BELT MAKER HELPER Visits 0 Evaluation Information Evaluation Date 07/02/22 PT-OP-B Current Condition Start: 07/02/22 16:25 Freq: Status: Active Protocol: Document 07/02/22 09:45 DCW (Rec: 07/02/22 16:44 DCW [id number]) Current Condition History of Current Condition Onset Date 6 months Current Complaints Low back pain, radicular thigh pain History of Current Condition Pt is a 66 year old male presenting with a six month history of low back pain with occasional pain into his left thigh. Pt unsure of exact PHYLICIA, but notes that he had a sore heel, and thinks it changed the way he walked. Notes his pain typically worsens as the day goes on, improves with rest, but there is no specific thing that causes him to either experiencing worsening or improving pain. Admits that he used to walk 6 miles a week, but now is willy to make it a half mile because of pain. Limits him ability to exercise and do housework. Up until one week ago, pt was being treated in this clinic for a shoulder injury, but felt that his low back was a much bigger limiting factor. PT-OP-C Subjective Start: 07/02/22 16:25 Freq: Status: Active Protocol: Document 07/02/22 09:45 DCW (Rec: 07/02/22 16:44 DCW [id number]) OP-PT Subjective Patient Comments Patient Comments Just walking up the stairs, trying to lift this (left) leg up, is a problem. Patient Reported Progress Same Patient Questionnaires Lower Extremity Functional Scale LEFS Score 55% Oswestry Low Back Index Oswestry Score 10/50 = 20% Oswestry Impairment 20 to 39% Impaired (Score 20- 39) OP-PT Pain Assessment Location Left Lower Back Intensity 5 Scale Used Numeric (0 - 10) Description Spasm,Tightness Frequency Frequent Radiating Location Into left thigh PT-OP-F Manual Assessment Start: 07/02/22 16:25 Freq: Status: Active Protocol: Document 07/02/22 09:45 DCW (Rec: 07/02/22 16:44 DCW [id number]) Manual Assessments Soft Tissue Assessment Soft Tissue Mobility Assessment Moderate tone left paraspinals , Left QL tightness, restricting lumbar mobility PT-OP-K Range of Motion Start: 07/02/22 16:25 Freq: Status: Active Protocol: Document 07/02/22 09:45 DCW (Rec: 07/02/22 16:44 DCW [id number]) Lumbar Spine Range of Motion Lumbar Spine Active Degrees Testing Position Standing Flexion 40 Extension 0 Comments Majority of flexion/extension occurs through hips or by bending knees, minimal lumbar ROM Lateral flexion measured in cm from fingertips to floor. PT-OP-L Special Tests Start: 07/02/22 16:25 Freq: Status: Active Protocol: Document 07/02/22 09:45 DCW (Rec: 07/02/22 17:46 DCW [id number]) Special Tests Lumbar Spine Special Tests Straight Leg Raise Test Results Hamstring tightness 50? bilaterally Standing Flexion Test Results Lumbar flexion limited Slump Test Results Negative Compression Test Results Negative A-P Shearing Test Results Negative Hip Special Tests NOEMÍ Test Results Mild L ipsilateral posterior hip pain PT-OP-Q Treatments Start: 07/02/22 16:25 Freq: Status: Active Protocol: Document 07/02/22 09:45 DCW (Rec: 07/02/22 17:46 DCW [id number]) Gym Equipment Therapeutic Ball LTR Exercise Details LTR Ball Size/Color Red - 55 cm Body Position Supine Therapeutic Exercises Sidelying Exercises Open book Sidelying Exercise Name Open Book Sitting Exercises Trunk Flexion Sitting Exercise Name Trunk flexion stretch Lateral Trunk Flexion Sitting Exercise Name Lateral trunk stretch Side bilateral PT-OP-T Assessment and Plan Start: 07/02/22 16:25 Freq: Status: Active Protocol: Document 07/02/22 09:45 DCW (Rec: 07/03/22 08:48 DC [id number]) Physical Therapy Assessment Rehab Potential Rehabilitation Potential Good Evaluation Complexity Number of Personal Factors/Comorbidities 0 Number of Body Systems Impaired 1-2 Clinical Presentation at Evaluation Stable Impairments Impairments Functional Activities, Functional Mobility,Pain, Posture,ROM,Soft Tissue Mobility,Strength,Tone Goals Two Impairment Pt unable to walk more than 0. 5 miles at a time around his neighborhood. Care Home Goal (LTG) Pt to return to usual activity level of at least 6 miles of community walking each week without back or left leg pain. LTG Duration 09/01/22 One Impairment Pt does not have an appropriate home exercise program Short Term Goal (STG) Pt to be independent and compliant with an appropriate HEP STG Duration 08/01/22 Assessment Summary Assessment Pt presents with signs and symptoms consistent with increased paraspinal tone, stiffness, limited lumbar ROM, and pain. Pt has moderate tone along left paraspinals and QL. Appears to be creating a narrowing of his foramen and occasionally resulting in potential L3 impingement. This is impacting pt's ability to participate in usual housework activities and limits his ability to walk due to pain. Pt should benefit from skilled therapy focusing on decreasing tone, stretching, improving core strength, and lifestyle changes to decrease abnormal unilateral forces through his hips and spine. Did discuss at length importance of not keeping wallet in left back pocket, which is potentially causing at least some of the abnormal posture in sitting, which may translate to increased lumbar tone. Physical Therapy Plan Frequency and Duration Frequency of Treatment 2x/Week Plan of Care Start Date 07/02/22 Plan of Care End Date 09/01/22 Therapeutic Interventions Therapeutic Interventions Gait Training,Home Exercise Program,Joint Mobilizations, Manual Therapy,Neuromuscular Re-education,Patient/Caregiver Education,Self-Care/Home Management,Soft Tissue Mobilization,Therapeutic Activities,Therapeutic Exercises Modalities Cold Pack/Ice Massage,Electric Stimulation,Hot Packs, Ultrasound Next Visit Focus/Plan Next Note Type Treatment Note Next Visit Plan STM, flexibility, core strengthening
--- NOTE | 2022-07-02 10:31 | PT.OPPOC ---
Physical, Occupational & Speech Therapy At [facility] Current Diagnoses Lumbago with sciatica, left side (07/02/22) Low back pain, unspecified (07/02/22) Pain in left leg (07/02/22) Visit Care Team Role Provider Type DARNELL English Attending Provider Advanced Rivet Hammer Machine Operator Family Provider Primary Care Provider Referring Provider Specialty: [facility] Practice Address: [address] [place] [address], [facility] Email: [email or web address] Plan Of Care PT-OP-T Assessment and Plan Start: 07/02/22 16:25 Freq: Status: Active Protocol: Document 07/02/22 09:45 DCW (Rec: 07/03/22 08:48 DCW [id number]) Physical Therapy Assessment Rehab Potential Rehabilitation Potential Good Evaluation Complexity Number of Personal Factors/Comorbidities 0 Number of Body Systems Impaired 1-2 Clinical Presentation at Evaluation Stable Impairments Impairments Functional Activities, Functional Mobility,Pain, Posture,ROM,Soft Tissue Mobility,Strength,Tone Goals Two Impairment Pt unable to walk more than 0. 5 miles at a time around his neighborhood. Rfp Writer Goal (LTG) Pt to return to usual activity level of at least 6 miles of community walking each week without back or left leg pain. LTG Duration 09/01/22 One Impairment Pt does not have an appropriate home exercise program Short Term Goal (STG) Pt to be independent and compliant with an appropriate HEP STG Duration 08/01/22 Assessment Summary Assessment Pt presents with signs and symptoms consistent with increased paraspinal tone, stiffness, limited lumbar ROM, and pain. Pt has moderate tone along left paraspinals and QL. Appears to be creating a narrowing of his foramen and occasionally resulting in potential L3 impingement. This is impacting pt's ability to participate in usual housework activities and limits his ability to walk due to pain. Pt should benefit from skilled therapy focusing on decreasing tone, stretching, improving core strength, and lifestyle changes to decrease abnormal unilateral forces through his hips and spine. Did discuss at length importance of not keeping wallet in left back pocket, which is potentially causing at least some of the abnormal posture in sitting, which may translate to increased lumbar tone. Physical Therapy Plan Frequency and Duration Frequency of Treatment 2x/Week Plan of Care Start Date 07/02/22 Plan of Care End Date 09/01/22 Therapeutic Interventions Therapeutic Interventions Gait Training,Home Exercise Program,Joint Mobilizations, Manual Therapy,Neuromuscular Re-education,Patient/Caregiver Education,Self-Care/Home Management,Soft Tissue Mobilization,Therapeutic Activities,Therapeutic Exercises Modalities Cold Pack/Ice Massage,Electric Stimulation,Hot Packs, Ultrasound Next Visit Focus/Plan Next Note Type Treatment Note Next Visit Plan STM, flexibility, core strengthening Plan of Care Dates Plan of Care Start Date 07/02/22 Plan of Care End Date 09/01/22 Electronically Signed by: Juan Lindquist, PT 07/03/22 0850 If you are in agreement with this Plan of Care, please return a signed and dated copy. I have reviewed this Plan of Care and certify that the skilled therapy services above are required to meet the patient?s needs. Physician Signature Date Printed Name and Credentials Clinical Instructor Signature Printed Name and Credentials
--- NOTE | 2022-07-07 10:29 | PT.OTN ---
Current Diagnoses Lumbago with sciatica, left side (07/07/22) Low back pain, unspecified (07/07/22) Pain in left leg (07/07/22) Physical Therapy Treatment Note PT-OP-A Visit Information Start: 07/02/22 16:25 Freq: Status: Active Protocol: Document 07/07/22 09:45 DCW (Rec: 07/07/22 10:29 DCW [id number]) Out-Patient Physical Therapy Visit Information Visit Information Visit Type Treatment Note Visit Start Time 09:45 Visit Stop Time 10:30 Total Visit Minutes 45 Visit Number 2 Number of STRAIGHTEDGE MAN Visits 0 Evaluation Information Evaluation Date 07/02/22 PT-OP-B Current Condition Start: 07/02/22 16:25 Freq: Status: Active Protocol: Document 07/02/22 09:45 DCW (Rec: 07/02/22 16:44 DCW [id number]) Current Condition History of Current Condition Onset Date 6 months Current Complaints Low back pain, radicular thigh pain History of Current Condition Pt is a 66 year old male presenting with a six month history of low back pain with occasional pain into his left thigh. Pt unsure of exact PHYLICIA, but notes that he had a sore heel, and thinks it changed the way he walked. Notes his pain typically worsens as the day goes on, improves with rest, but there is no specific thing that causes him to either experiencing worsening or improving pain. Admits that he used to walk 6 miles a week, but now is willy to make it a half mile because of pain. Limits him ability to exercise and do housework. Up until one week ago, pt was being treated in this clinic for a shoulder injury, but felt that his low back was a much bigger limiting factor. PT-OP-C Subjective Start: 07/02/22 16:25 Freq: Status: Active Protocol: Document 07/07/22 09:45 DCW (Rec: 07/07/22 10:29 DCW [id number]) OP-PT Subjective Patient Comments Patient Comments Notes it is early in the day, so he is feeling pretty good. Has done his exercises this morning. PT-OP-F Manual Assessment Start: 07/02/22 16:25 Freq: Status: Active Protocol: Document 07/02/22 09:45 DCW (Rec: 07/02/22 16:44 DCW [id number]) Manual Assessments Soft Tissue Assessment Soft Tissue Mobility Assessment Moderate tone left paraspinals , Left QL tightness, restricting lumbar mobility PT-OP-K Range of Motion Start: 07/02/22 16:25 Freq: Status: Active Protocol: Document 07/02/22 09:45 DCW (Rec: 07/02/22 16:44 DCW [id number]) Lumbar Spine Range of Motion Lumbar Spine Active Degrees Testing Position Standing Flexion 40 Extension 0 Comments Majority of flexion/extension occurs through hips or by bending knees, minimal lumbar ROM Lateral flexion measured in cm from fingertips to floor. PT-OP-L Special Tests Start: 07/02/22 16:25 Freq: Status: Active Protocol: Document 07/02/22 09:45 DCW (Rec: 07/02/22 17:46 DCW [id number]) Special Tests Lumbar Spine Special Tests Straight Leg Raise Test Results Hamstring tightness 50? bilaterally Standing Flexion Test Results Lumbar flexion limited Slump Test Results Negative Compression Test Results Negative A-P Shearing Test Results Negative Hip Special Tests NOEMÍ Test Results Mild L ipsilateral posterior hip pain PT-OP-Q Treatments Start: 07/02/22 16:25 Freq: Status: Active Protocol: Document 07/07/22 09:45 DCW (Rec: 07/07/22 10:29 DCW [id number]) Gym Equipment Therapeutic Ball Pelvic Circles Exercise Details Pelvic tilts, Circles Ball Size/Color Green - 65 cm Body Position Sitting Therapeutic Exercises Supine Exercises PPT /c Air Bike Supine Exercise Name PPT /c Air Bicycle Comments TrA contraction PPT /c SLR Supine Exercise Name PPT /c SLR Comments TrA contraction PPT /c Marching Supine Exercise Name PPT /c Marching Comments TrA contraction PPT/TrA Supine Exercise Name PPT Comments 5 hold Standing Exercises Hip Hiking Standing Exercise Name Hip Hiking Side bilateral Equipment Used 6 step Pallof Press Standing Exercise Name Pallof Press Side bilateral Resistance Blue Reps/Minutes x12 Manual Therapy Treatment Soft Tissue Mobilization Lumbar paraspinals Body Location L Lumbar paraspinals Mobilization Type Strumming,Sustained Pressure Manual Traction Lumbar Details Long-axis L LE /c strap Body Position Supine Hip Details Inferior force through Iliac crest Body Position Sidelying PT-OP-T Assessment and Plan Start: 07/02/22 16:25 Freq: Status: Active Protocol: Document 07/07/22 09:45 DCW (Rec: 07/07/22 10:29 DCW [id number]) Physical Therapy Assessment Impairments Impairments Functional Activities, Functional Mobility,Pain, Posture,ROM,Soft Tissue Mobility,Strength,Tone Goals Two Impairment Pt unable to walk more than 0. 5 miles at a time around his neighborhood. Care Home Goal (LTG) Pt to return to usual activity level of at least 6 miles of community walking each week without back or left leg pain. LTG Duration 09/01/22 One Impairment Pt does not have an appropriate home exercise program Short Term Goal (STG) Pt to be independent and compliant with an appropriate HEP STG Duration 08/01/22 Assessment Summary Assessment Pt tolerated treatment very well, noted fatigue in low back and hip following today's session, but no increased pain or increased difficulty ambulating. Added PPT activities and hip hiking to HEP. Physical Therapy Plan Frequency and Duration Frequency of Treatment 2x/Week Plan of Care Start Date 07/02/22 Plan of Care End Date 09/01/22 Therapeutic Interventions Therapeutic Interventions Gait Training,Home Exercise Program,Joint Mobilizations, Manual Therapy,Neuromuscular Re-education,Patient/Caregiver Education,Self-Care/Home Management,Soft Tissue Mobilization,Therapeutic Activities,Therapeutic Exercises Modalities Cold Pack/Ice Massage,Electric Stimulation,Hot Packs, Ultrasound Next Visit Focus/Plan Next Note Type Treatment Note Next Visit Plan STM, flexibility, core strengthening
--- NOTE | 2022-07-16 10:27 | PT.OTN ---
Current Diagnoses Lumbago with sciatica, left side (07/16/22) Low back pain, unspecified (07/16/22) Pain in left leg (07/16/22) Physical Therapy Treatment Note PT-OP-A Visit Information Start: 07/02/22 16:25 Freq: Status: Active Protocol: Document 07/16/22 09:45 DCW (Rec: 07/16/22 10:27 DCW [id number]) Out-Patient Physical Therapy Visit Information Visit Information Visit Type Treatment Note Visit Start Time 09:45 Visit Stop Time 10:30 Total Visit Minutes 45 Visit Number 3 Number of PROFESSOR OF COMMUNICATION ARTS Visits 0 Evaluation Information Evaluation Date 07/02/22 PT-OP-B Current Condition Start: 07/02/22 16:25 Freq: Status: Active Protocol: Document 07/02/22 09:45 DCW (Rec: 07/02/22 16:44 DCW [id number]) Current Condition History of Current Condition Onset Date 6 months Current Complaints Low back pain, radicular thigh pain History of Current Condition Pt is a 66 year old male presenting with a six month history of low back pain with occasional pain into his left thigh. Pt unsure of exact PHYLICIA, but notes that he had a sore heel, and thinks it changed the way he walked. Notes his pain typically worsens as the day goes on, improves with rest, but there is no specific thing that causes him to either experiencing worsening or improving pain. Admits that he used to walk 6 miles a week, but now is willy to make it a half mile because of pain. Limits him ability to exercise and do housework. Up until one week ago, pt was being treated in this clinic for a shoulder injury, but felt that his low back was a much bigger limiting factor. PT-OP-C Subjective Start: 07/02/22 16:25 Freq: Status: Active Protocol: Document 07/16/22 09:45 DCW (Rec: 07/16/22 10:27 DCW [id number]) OP-PT Subjective Patient Comments Patient Comments I'm doing pretty well. I'm actually seeing improvement. PT-OP-F Manual Assessment Start: 07/02/22 16:25 Freq: Status: Active Protocol: Document 07/02/22 09:45 DCW (Rec: 07/02/22 16:44 DCW [id number]) Manual Assessments Soft Tissue Assessment Soft Tissue Mobility Assessment Moderate tone left paraspinals , Left QL tightness, restricting lumbar mobility PT-OP-K Range of Motion Start: 07/02/22 16:25 Freq: Status: Active Protocol: Document 07/02/22 09:45 DCW (Rec: 07/02/22 16:44 DCW [id number]) Lumbar Spine Range of Motion Lumbar Spine Active Degrees Testing Position Standing Flexion 40 Extension 0 Comments Majority of flexion/extension occurs through hips or by bending knees, minimal lumbar ROM Lateral flexion measured in cm from fingertips to floor. PT-OP-L Special Tests Start: 07/02/22 16:25 Freq: Status: Active Protocol: Document 07/02/22 09:45 DCW (Rec: 07/02/22 17:46 DCW [id number]) Special Tests Lumbar Spine Special Tests Straight Leg Raise Test Results Hamstring tightness 50? bilaterally Standing Flexion Test Results Lumbar flexion limited Slump Test Results Negative Compression Test Results Negative A-P Shearing Test Results Negative Hip Special Tests NOEMÍ Test Results Mild L ipsilateral posterior hip pain PT-OP-Q Treatments Start: 07/02/22 16:25 Freq: Status: Active Protocol: Document 07/16/22 09:45 DCW (Rec: 07/16/22 10:27 DCW [id number]) Gym Equipment Therapeutic Ball Pelvic Circles Exercise Details Pelvic tilts, Circles Ball Size/Color Green - 65 cm Body Position Sitting LTR Exercise Details LTR Ball Size/Color Red - 55 cm Body Position Supine Therapeutic Exercises Standing Exercises Toe-taps Standing Exercise Name Toe-taps Side bilateral Resistance 5# Equipment Used 6 step Hip Extension Standing Exercise Name Hip Extension Side bilateral Resistance Blue Step-ups Standing Exercise Name BOSU step-ups with alternating high-knee Side bilateral Equipment Used // bars Pallof Press Standing Exercise Name Pallof Press Side bilateral Resistance Blue Reps/Minutes x12 Other Exercises Resisted Ambulation Other Exercise Name Resisted Side-stepping Resistance Blue Equipment Used // bars Manual Therapy Treatment Soft Tissue Mobilization Lumbar paraspinals Body Location L Lumbar paraspinals Mobilization Type Strumming,Sustained Pressure Body Position Sidelying Manual Traction Lumbar Details Long-axis L LE /c strap Body Position Supine Hip Details Inferior force through Iliac crest Body Position Sidelying PT-OP-T Assessment and Plan Start: 07/02/22 16:25 Freq: Status: Active Protocol: Document 07/16/22 09:45 DCW (Rec: 07/16/22 10:27 DCW [id number]) Physical Therapy Assessment Impairments Impairments Functional Activities, Functional Mobility,Pain, Posture,ROM,Soft Tissue Mobility,Strength,Tone Goals Two Impairment Pt unable to walk more than 0. 5 miles at a time around his neighborhood. Retirement Goal (LTG) Pt to return to usual activity level of at least 6 miles of community walking each week without back or left leg pain. LTG Duration 09/01/22 One Impairment Pt does not have an appropriate home exercise program Short Term Goal (STG) Pt to be independent and compliant with an appropriate HEP STG Duration 08/01/22 Assessment Summary Assessment Pt already showing good progression with decreasing lumbar paraspinal tone, improved tolerance to daily activities. Has T-ball at home , will add those exercises to HEP if he can find it. Physical Therapy Plan Frequency and Duration Frequency of Treatment 2x/Week Plan of Care Start Date 07/02/22 Plan of Care End Date 09/01/22 Therapeutic Interventions Therapeutic Interventions Gait Training,Home Exercise Program,Joint Mobilizations, Manual Therapy,Neuromuscular Re-education,Patient/Caregiver Education,Self-Care/Home Management,Soft Tissue Mobilization,Therapeutic Activities,Therapeutic Exercises Modalities Cold Pack/Ice Massage,Electric Stimulation,Hot Packs, Ultrasound Next Visit Focus/Plan Next Note Type Treatment Note Next Visit Plan STM, flexibility, core strengthening
--- NOTE | 2022-07-20 11:01 | PT.OTN ---
Current Diagnoses Lumbago with sciatica, left side (07/20/22) Low back pain, unspecified (07/20/22) Pain in left leg (07/20/22) Physical Therapy Treatment Note PT-OP-A Visit Information Start: 07/02/22 16:25 Freq: Status: Active Protocol: Document 07/20/22 10:15 DCW (Rec: 07/20/22 11:01 DCW [id number]) Out-Patient Physical Therapy Visit Information Visit Information Visit Type Treatment Note Visit Start Time 10:15 Visit Stop Time 11:00 Total Visit Minutes 45 Visit Number 4 Number of MANAGER PEOPLE Visits 0 Evaluation Information Evaluation Date 07/02/22 PT-OP-B Current Condition Start: 07/02/22 16:25 Freq: Status: Active Protocol: Document 07/02/22 09:45 DCW (Rec: 07/02/22 16:44 DCW [id number]) Current Condition History of Current Condition Onset Date 6 months Current Complaints Low back pain, radicular thigh pain History of Current Condition Pt is a 66 year old male presenting with a six month history of low back pain with occasional pain into his left thigh. Pt unsure of exact PHYLICIA, but notes that he had a sore heel, and thinks it changed the way he walked. Notes his pain typically worsens as the day goes on, improves with rest, but there is no specific thing that causes him to either experiencing worsening or improving pain. Admits that he used to walk 6 miles a week, but now is willy to make it a half mile because of pain. Limits him ability to exercise and do housework. Up until one week ago, pt was being treated in this clinic for a shoulder injury, but felt that his low back was a much bigger limiting factor. PT-OP-C Subjective Start: 07/02/22 16:25 Freq: Status: Active Protocol: Document 07/20/22 10:15 DCW (Rec: 07/20/22 11:01 DCW [id number]) OP-PT Subjective Patient Comments Patient Comments I'm a little sore this morning. when I came in, I was feeling pretty good. but [place] so Wednesday was a big recovery day. PT-OP-F Manual Assessment Start: 07/02/22 16:25 Freq: Status: Active Protocol: Document 07/02/22 09:45 DCW (Rec: 07/02/22 16:44 DCW [id number]) Manual Assessments Soft Tissue Assessment Soft Tissue Mobility Assessment Moderate tone left paraspinals , Left QL tightness, restricting lumbar mobility PT-OP-K Range of Motion Start: 07/02/22 16:25 Freq: Status: Active Protocol: Document 07/02/22 09:45 DCW (Rec: 07/02/22 16:44 DCW [id number]) Lumbar Spine Range of Motion Lumbar Spine Active Degrees Testing Position Standing Flexion 40 Extension 0 Comments Majority of flexion/extension occurs through hips or by bending knees, minimal lumbar ROM Lateral flexion measured in cm from fingertips to floor. PT-OP-L Special Tests Start: 07/02/22 16:25 Freq: Status: Active Protocol: Document 07/02/22 09:45 DCW (Rec: 07/02/22 17:46 DCW [id number]) Special Tests Lumbar Spine Special Tests Straight Leg Raise Test Results Hamstring tightness 50? bilaterally Standing Flexion Test Results Lumbar flexion limited Slump Test Results Negative Compression Test Results Negative A-P Shearing Test Results Negative Hip Special Tests NOEMÍ Test Results Mild L ipsilateral posterior hip pain PT-OP-Q Treatments Start: 07/02/22 16:25 Freq: Status: Active Protocol: Document 07/20/22 10:15 DCW (Rec: 07/20/22 11:01 DCW [id number]) Gym Equipment Therapeutic Ball Resisted Trunk Rotation Exercise Details Resisted Trunk Rotation Ball Size/Color Green - 65 cm Blue T-band Body Position Sitting Pelvic Circles Exercise Details Pelvic tilts, Circles Ball Size/Color Green - 65 cm Body Position Sitting Therapeutic Exercises Standing Exercises Toe-taps Standing Exercise Name Toe-taps Side bilateral Resistance 5# Equipment Used 6 step Comments Fwd, Lateral Hip Extension Standing Exercise Name Hip Extension Side bilateral Resistance Blue Pallof Press Standing Exercise Name Pallof Press Side bilateral Resistance Blue Reps/Minutes x12 Other Exercises Resisted Ambulation Other Exercise Name Resisted Side-stepping Resistance Blue Equipment Used // bars Manual Therapy Treatment Soft Tissue Mobilization Lumbar paraspinals Body Location L Lumbar paraspinals Mobilization Type Strumming,Sustained Pressure Body Position Sidelying Manual Traction Lumbar Details Long-axis L LE /c strap Body Position Supine Hip Details Inferior force through Iliac crest Body Position Sidelying PT-OP-T Assessment and Plan Start: 07/02/22 16:25 Freq: Status: Active Protocol: Document 07/20/22 10:15 DCW (Rec: 07/20/22 11:01 DCW [id number]) Physical Therapy Assessment Impairments Impairments Functional Activities, Functional Mobility,Pain, Posture,ROM,Soft Tissue Mobility,Strength,Tone Goals Two Impairment Pt unable to walk more than 0. 5 miles at a time around his neighborhood. Correction Goal (LTG) Pt to return to usual activity level of at least 6 miles of community walking each week without back or left leg pain. LTG Duration 09/01/22 One Impairment Pt does not have an appropriate home exercise program Short Term Goal (STG) Pt to be independent and compliant with an appropriate HEP STG Duration 08/01/22 Assessment Summary Assessment Still looking for T-ball at home, but otherwise is doing well with his HEP. Noticing improved lumbar mobility with stretching. Physical Therapy Plan Frequency and Duration Frequency of Treatment 2x/Week Plan of Care Start Date 07/02/22 Plan of Care End Date 09/01/22 Therapeutic Interventions Therapeutic Interventions Gait Training,Home Exercise Program,Joint Mobilizations, Manual Therapy,Neuromuscular Re-education,Patient/Caregiver Education,Self-Care/Home Management,Soft Tissue Mobilization,Therapeutic Activities,Therapeutic Exercises Modalities Cold Pack/Ice Massage,Electric Stimulation,Hot Packs, Ultrasound Next Visit Focus/Plan Next Note Type Treatment Note Next Visit Plan STM, flexibility, core strengthening
--- NOTE | 2022-07-23 10:12 | PT.OTN ---
Current Diagnoses Lumbago with sciatica, left side (07/23/22) Low back pain, unspecified (07/23/22) Pain in left leg (07/23/22) Physical Therapy Treatment Note PT-OP-A Visit Information Start: 07/02/22 16:25 Freq: Status: Active Protocol: Document 07/23/22 09:30 DCW (Rec: 07/23/22 10:12 DCW [id number]) Out-Patient Physical Therapy Visit Information Visit Information Visit Type Treatment Note Visit Start Time 09:30 Visit Stop Time 10:15 Total Visit Minutes 45 Visit Number 5 Number of DIRECTOR WHOLESALE Visits 0 Evaluation Information Evaluation Date 07/02/22 PT-OP-B Current Condition Start: 07/02/22 16:25 Freq: Status: Active Protocol: Document 07/02/22 09:45 DCW (Rec: 07/02/22 16:44 DCW [id number]) Current Condition History of Current Condition Onset Date 6 months Current Complaints Low back pain, radicular thigh pain History of Current Condition Pt is a 66 year old male presenting with a six month history of low back pain with occasional pain into his left thigh. Pt unsure of exact PHYLICIA, but notes that he had a sore heel, and thinks it changed the way he walked. Notes his pain typically worsens as the day goes on, improves with rest, but there is no specific thing that causes him to either experiencing worsening or improving pain. Admits that he used to walk 6 miles a week, but now is willy to make it a half mile because of pain. Limits him ability to exercise and do housework. Up until one week ago, pt was being treated in this clinic for a shoulder injury, but felt that his low back was a much bigger limiting factor. PT-OP-C Subjective Start: 07/02/22 16:25 Freq: Status: Active Protocol: Document 07/23/22 09:30 DCW (Rec: 07/23/22 10:12 DCW [id number]) OP-PT Subjective Patient Comments Patient Comments I was a little sore [place], felt better yesterday, and today I'm still doing pretty well. PT-OP-F Manual Assessment Start: 07/02/22 16:25 Freq: Status: Active Protocol: Document 07/02/22 09:45 DCW (Rec: 07/02/22 16:44 DCW [id number]) Manual Assessments Soft Tissue Assessment Soft Tissue Mobility Assessment Moderate tone left paraspinals , Left QL tightness, restricting lumbar mobility PT-OP-K Range of Motion Start: 07/02/22 16:25 Freq: Status: Active Protocol: Document 07/02/22 09:45 DCW (Rec: 07/02/22 16:44 DCW [id number]) Lumbar Spine Range of Motion Lumbar Spine Active Degrees Testing Position Standing Flexion 40 Extension 0 Comments Majority of flexion/extension occurs through hips or by bending knees, minimal lumbar ROM Lateral flexion measured in cm from fingertips to floor. PT-OP-L Special Tests Start: 07/02/22 16:25 Freq: Status: Active Protocol: Document 07/02/22 09:45 DCW (Rec: 07/02/22 17:46 DCW [id number]) Special Tests Lumbar Spine Special Tests Straight Leg Raise Test Results Hamstring tightness 50? bilaterally Standing Flexion Test Results Lumbar flexion limited Slump Test Results Negative Compression Test Results Negative A-P Shearing Test Results Negative Hip Special Tests NOEMÍ Test Results Mild L ipsilateral posterior hip pain PT-OP-Q Treatments Start: 07/02/22 16:25 Freq: Status: Active Protocol: Document 07/23/22 09:30 DCW (Rec: 07/23/22 10:12 DCW [id number]) Gym Equipment Therapeutic Ball Pelvic Circles Exercise Details Pelvic tilts, Circles Ball Size/Color Green - 65 cm Body Position Sitting Therapeutic Exercises Supine Exercises Hip Flexor stretch Supine Exercise Name Hip Flexor stretch - leg off table PPT /c Air Bike Supine Exercise Name PPT /c Air Bicycle Comments TrA contraction Standing Exercises Hip Extension Standing Exercise Name Hip Extension Side bilateral Resistance Blue Other Exercises Hurdles Other Exercise Name Hurdles /c 5# ankle weights Resisted Ambulation Other Exercise Name Resisted Side-stepping Resistance Blue Equipment Used // bars Manual Therapy Treatment Soft Tissue Mobilization Lumbar paraspinals Body Location L Lumbar paraspinals Mobilization Type Strumming,Sustained Pressure Body Position Sidelying Manual Traction Lumbar Details Long-axis L LE /c strap Body Position Supine Hip Details Inferior force through Iliac crest Body Position Sidelying PT-OP-T Assessment and Plan Start: 07/02/22 16:25 Freq: Status: Active Protocol: Document 07/23/22 09:30 DCW (Rec: 07/23/22 10:12 DCW [id number]) Physical Therapy Assessment Impairments Impairments Functional Activities, Functional Mobility,Pain, Posture,ROM,Soft Tissue Mobility,Strength,Tone Goals Two Impairment Pt unable to walk more than 0. 5 miles at a time around his neighborhood. Beef Tagger Goal (LTG) Pt to return to usual activity level of at least 6 miles of community walking each week without back or left leg pain. LTG Duration 09/01/22 One Impairment Pt does not have an appropriate home exercise program Short Term Goal (STG) Pt to be independent and compliant with an appropriate HEP STG Duration 08/01/22 Assessment Summary Assessment Pt reports he ordered a 65 cm T-ball, should be arriving today, will be helpful to allow him to perform all of HEP. Added hip flexor stretch today, either off side of bed or half-kneeling lunge. Pt showing good progress overall, responding well to therapeutic intervention. Physical Therapy Plan Frequency and Duration Frequency of Treatment 2x/Week Plan of Care Start Date 07/02/22 Plan of Care End Date 09/01/22 Therapeutic Interventions Therapeutic Interventions Gait Training,Home Exercise Program,Joint Mobilizations, Manual Therapy,Neuromuscular Re-education,Patient/Caregiver Education,Self-Care/Home Management,Soft Tissue Mobilization,Therapeutic Activities,Therapeutic Exercises Modalities Cold Pack/Ice Massage,Electric Stimulation,Hot Packs, Ultrasound Next Visit Focus/Plan Next Note Type Treatment Note Next Visit Plan STM, flexibility, core strengthening
--- NOTE | 2022-07-27 10:11 | PT.OTN ---
Current Diagnoses Lumbago with sciatica, left side (07/27/22) Low back pain, unspecified (07/27/22) Pain in left leg (07/27/22) Physical Therapy Treatment Note PT-OP-A Visit Information Start: 07/02/22 16:25 Freq: Status: Active Protocol: Document 07/27/22 09:30 DCW (Rec: 07/27/22 10:11 DCW [id number]) Out-Patient Physical Therapy Visit Information Visit Information Visit Type Treatment Note Visit Start Time 09:30 Visit Stop Time 10:15 Total Visit Minutes 45 Visit Number 6 Number of PLATE CLEANER Visits 0 Evaluation Information Evaluation Date 07/02/22 PT-OP-B Current Condition Start: 07/02/22 16:25 Freq: Status: Active Protocol: Document 07/02/22 09:45 DCW (Rec: 07/02/22 16:44 DCW [id number]) Current Condition History of Current Condition Onset Date 6 months Current Complaints Low back pain, radicular thigh pain History of Current Condition Pt is a 66 year old male presenting with a six month history of low back pain with occasional pain into his left thigh. Pt unsure of exact PHYLICIA, but notes that he had a sore heel, and thinks it changed the way he walked. Notes his pain typically worsens as the day goes on, improves with rest, but there is no specific thing that causes him to either experiencing worsening or improving pain. Admits that he used to walk 6 miles a week, but now is willy to make it a half mile because of pain. Limits him ability to exercise and do housework. Up until one week ago, pt was being treated in this clinic for a shoulder injury, but felt that his low back was a much bigger limiting factor. PT-OP-C Subjective Start: 07/02/22 16:25 Freq: Status: Active Protocol: Document 07/27/22 09:30 DCW (Rec: 07/27/22 10:11 DCW [id number]) OP-PT Subjective Patient Comments Patient Comments I'm not overly sore today. PT-OP-F Manual Assessment Start: 07/02/22 16:25 Freq: Status: Active Protocol: Document 07/02/22 09:45 DCW (Rec: 07/02/22 16:44 DCW [id number]) Manual Assessments Soft Tissue Assessment Soft Tissue Mobility Assessment Moderate tone left paraspinals , Left QL tightness, restricting lumbar mobility PT-OP-K Range of Motion Start: 07/02/22 16:25 Freq: Status: Active Protocol: Document 07/02/22 09:45 DCW (Rec: 07/02/22 16:44 DCW [id number]) Lumbar Spine Range of Motion Lumbar Spine Active Degrees Testing Position Standing Flexion 40 Extension 0 Comments Majority of flexion/extension occurs through hips or by bending knees, minimal lumbar ROM Lateral flexion measured in cm from fingertips to floor. PT-OP-L Special Tests Start: 07/02/22 16:25 Freq: Status: Active Protocol: Document 07/02/22 09:45 DCW (Rec: 07/02/22 17:46 DCW [id number]) Special Tests Lumbar Spine Special Tests Straight Leg Raise Test Results Hamstring tightness 50? bilaterally Standing Flexion Test Results Lumbar flexion limited Slump Test Results Negative Compression Test Results Negative A-P Shearing Test Results Negative Hip Special Tests NOEMÍ Test Results Mild L ipsilateral posterior hip pain PT-OP-Q Treatments Start: 07/02/22 16:25 Freq: Status: Active Protocol: Document 07/27/22 09:30 DCW (Rec: 07/27/22 10:11 DCW [id number]) Therapeutic Exercises Supine Exercises Piriformis Stretch Supine Exercise Name Piriformis Stretch - Figure-4 Side bilateral ITB Stretch Supine Exercise Name ITB Stretch Side bilateral Hamstring Stretch Supine Exercise Name HS stretch Side bilateral Standing Exercises Toe-taps Standing Exercise Name Toe-taps Side bilateral Resistance 5# Equipment Used 6 step Comments Fwd, Lateral Step-ups Standing Exercise Name BOSU step-ups with alternating high-knee Side bilateral Equipment Used // bars Other Exercises Hurdles Other Exercise Name Hurdles /c 5# ankle weights Comments Fwd, Lateral Resisted Ambulation Other Exercise Name Resisted Side-stepping, Fwd/ Bkwd Resistance Blue Equipment Used // bars Manual Therapy Treatment Soft Tissue Mobilization Lumbar paraspinals Body Location L Lumbar paraspinals Mobilization Type Strumming,Sustained Pressure Body Position Sidelying Manual Traction Lumbar Details Long-axis L LE /c strap Body Position Supine Hip Details Inferior force through Iliac crest Body Position Sidelying PT-OP-T Assessment and Plan Start: 07/02/22 16:25 Freq: Status: Active Protocol: Document 07/27/22 09:30 DCW (Rec: 07/27/22 10:11 DCW [id number]) Physical Therapy Assessment Impairments Impairments Functional Activities, Functional Mobility,Pain, Posture,ROM,Soft Tissue Mobility,Strength,Tone Goals Two Impairment Pt unable to walk more than 0. 5 miles at a time around his neighborhood. Usp Goal (LTG) Pt to return to usual activity level of at least 6 miles of community walking each week without back or left leg pain. LTG Duration 09/01/22 One Impairment Pt does not have an appropriate home exercise program Short Term Goal (STG) Pt to be independent and compliant with an appropriate HEP STG Duration 08/01/22 Assessment Summary Assessment Pt continues to progress very well, improving with balance challenges, significantly less tone in low back today. Physical Therapy Plan Frequency and Duration Frequency of Treatment 2x/Week Plan of Care Start Date 07/02/22 Plan of Care End Date 09/01/22 Therapeutic Interventions Therapeutic Interventions Gait Training,Home Exercise Program,Joint Mobilizations, Manual Therapy,Neuromuscular Re-education,Patient/Caregiver Education,Self-Care/Home Management,Soft Tissue Mobilization,Therapeutic Activities,Therapeutic Exercises Modalities Cold Pack/Ice Massage,Electric Stimulation,Hot Packs, Ultrasound Next Visit Focus/Plan Next Note Type Treatment Note Next Visit Plan STM, flexibility, core strengthening
--- NOTE | 2022-07-30 10:15 | PT.OTN ---
Current Diagnoses Lumbago with sciatica, left side (07/30/22) Low back pain, unspecified (07/30/22) Pain in left leg (07/30/22) Physical Therapy Treatment Note PT-OP-A Visit Information Start: 07/02/22 16:25 Freq: Status: Active Protocol: Document 07/30/22 09:30 DCW (Rec: 07/30/22 10:15 DCW [id number]) Out-Patient Physical Therapy Visit Information Visit Information Visit Type Treatment Note Visit Start Time 09:30 Visit Stop Time 10:15 Total Visit Minutes 45 Visit Number 7 Number of COPYRIGHT MANAGER Visits 0 Evaluation Information Evaluation Date 07/02/22 PT-OP-B Current Condition Start: 07/02/22 16:25 Freq: Status: Active Protocol: Document 07/02/22 09:45 DCW (Rec: 07/02/22 16:44 DCW [id number]) Current Condition History of Current Condition Onset Date 6 months Current Complaints Low back pain, radicular thigh pain History of Current Condition Pt is a 66 year old male presenting with a six month history of low back pain with occasional pain into his left thigh. Pt unsure of exact PHYLICIA, but notes that he had a sore heel, and thinks it changed the way he walked. Notes his pain typically worsens as the day goes on, improves with rest, but there is no specific thing that causes him to either experiencing worsening or improving pain. Admits that he used to walk 6 miles a week, but now is willy to make it a half mile because of pain. Limits him ability to exercise and do housework. Up until one week ago, pt was being treated in this clinic for a shoulder injury, but felt that his low back was a much bigger limiting factor. PT-OP-C Subjective Start: 07/02/22 16:25 Freq: Status: Active Protocol: Document 07/30/22 09:30 DCW (Rec: 07/30/22 10:15 DCW [id number]) OP-PT Subjective Patient Comments Patient Comments I can actually feel progress. PT-OP-F Manual Assessment Start: 07/02/22 16:25 Freq: Status: Active Protocol: Document 07/02/22 09:45 DCW (Rec: 07/02/22 16:44 DCW [id number]) Manual Assessments Soft Tissue Assessment Soft Tissue Mobility Assessment Moderate tone left paraspinals , Left QL tightness, restricting lumbar mobility PT-OP-K Range of Motion Start: 07/02/22 16:25 Freq: Status: Active Protocol: Document 07/02/22 09:45 DCW (Rec: 07/02/22 16:44 DCW [id number]) Lumbar Spine Range of Motion Lumbar Spine Active Degrees Testing Position Standing Flexion 40 Extension 0 Comments Majority of flexion/extension occurs through hips or by bending knees, minimal lumbar ROM Lateral flexion measured in cm from fingertips to floor. PT-OP-L Special Tests Start: 07/02/22 16:25 Freq: Status: Active Protocol: Document 07/02/22 09:45 DCW (Rec: 07/02/22 17:46 DCW [id number]) Special Tests Lumbar Spine Special Tests Straight Leg Raise Test Results Hamstring tightness 50? bilaterally Standing Flexion Test Results Lumbar flexion limited Slump Test Results Negative Compression Test Results Negative A-P Shearing Test Results Negative Hip Special Tests NOEMÍ Test Results Mild L ipsilateral posterior hip pain PT-OP-Q Treatments Start: 07/02/22 16:25 Freq: Status: Active Protocol: Document 07/30/22 09:30 DCW (Rec: 07/30/22 10:15 DCW [id number]) Therapeutic Exercises Supine Exercises Piriformis Stretch Supine Exercise Name Piriformis Stretch - Figure-4 Side bilateral ITB Stretch Supine Exercise Name ITB Stretch Side bilateral Hamstring Stretch Supine Exercise Name HS stretch Side bilateral Comments Contract-relax Other Exercises Hurdles Other Exercise Name Hurdles /c 5# ankle weights Comments Fwd, Lateral Resisted Ambulation Other Exercise Name Resisted Side-stepping, Fwd/ Bkwd Resistance Blue Equipment Used // bars Manual Therapy Treatment Soft Tissue Mobilization Lumbar paraspinals Body Location L Lumbar paraspinals Mobilization Type Strumming,Sustained Pressure Body Position Sidelying Manual Traction Lumbar Details Long-axis L LE /c strap Body Position Supine Hip Details Inferior force through Iliac crest Body Position Sidelying PT-OP-T Assessment and Plan Start: 07/02/22 16:25 Freq: Status: Active Protocol: Document 07/30/22 09:30 DCW (Rec: 07/30/22 10:15 DCW [id number]) Physical Therapy Assessment Impairments Impairments Functional Activities, Functional Mobility,Pain, Posture,ROM,Soft Tissue Mobility,Strength,Tone Goals Two Impairment Pt unable to walk more than 0. 5 miles at a time around his neighborhood. Foreclosure Home Inspector Goal (LTG) Pt to return to usual activity level of at least 6 miles of community walking each week without back or left leg pain. LTG Duration 09/01/22 One Impairment Pt does not have an appropriate home exercise program Short Term Goal (STG) Pt to be independent and compliant with an appropriate HEP STG Duration 08/01/22 Assessment Summary Assessment Pt has made good strides recently, significant improvement in reported back and hip pain, able to better participate in weekend projects. Physical Therapy Plan Frequency and Duration Frequency of Treatment 2x/Week Plan of Care Start Date 07/02/22 Plan of Care End Date 09/01/22 Therapeutic Interventions Therapeutic Interventions Gait Training,Home Exercise Program,Joint Mobilizations, Manual Therapy,Neuromuscular Re-education,Patient/Caregiver Education,Self-Care/Home Management,Soft Tissue Mobilization,Therapeutic Activities,Therapeutic Exercises Modalities Cold Pack/Ice Massage,Electric Stimulation,Hot Packs, Ultrasound Next Visit Focus/Plan Next Note Type Treatment Note Next Visit Plan STM, flexibility, core strengthening
--- NOTE | 2022-08-03 10:12 | PT.OTN ---
Current Diagnoses Lumbago with sciatica, left side (08/03/22) Low back pain, unspecified (08/03/22) Pain in left leg (08/03/22) Physical Therapy Treatment Note PT-OP-A Visit Information Start: 07/02/22 16:25 Freq: Status: Active Protocol: Document 08/03/22 09:30 DCW (Rec: 08/03/22 10:12 DCW [id number]) Out-Patient Physical Therapy Visit Information Visit Information Visit Type Treatment Note Visit Start Time 09:30 Visit Stop Time 10:15 Total Visit Minutes 45 Visit Number 8 Number of ARRESTING GEAR OPERATOR Visits 0 Evaluation Information Evaluation Date 07/02/22 PT-OP-B Current Condition Start: 07/02/22 16:25 Freq: Status: Active Protocol: Document 07/02/22 09:45 DCW (Rec: 07/02/22 16:44 DCW [id number]) Current Condition History of Current Condition Onset Date 6 months Current Complaints Low back pain, radicular thigh pain History of Current Condition Pt is a 66 year old male presenting with a six month history of low back pain with occasional pain into his left thigh. Pt unsure of exact PHYLICIA, but notes that he had a sore heel, and thinks it changed the way he walked. Notes his pain typically worsens as the day goes on, improves with rest, but there is no specific thing that causes him to either experiencing worsening or improving pain. Admits that he used to walk 6 miles a week, but now is willy to make it a half mile because of pain. Limits him ability to exercise and do housework. Up until one week ago, pt was being treated in this clinic for a shoulder injury, but felt that his low back was a much bigger limiting factor. 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 PT-OP-F Manual Assessment Start: 07/02/22 16:25 Freq: Status: Active Protocol: Document 07/02/22 09:45 DCW (Rec: 07/02/22 16:44 DCW [id number]) Manual Assessments Soft Tissue Assessment Soft Tissue Mobility Assessment Moderate tone left paraspinals , Left QL tightness, restricting lumbar mobility PT-OP-K Range of Motion Start: 07/02/22 16:25 Freq: Status: Active Protocol: Document 07/02/22 09:45 DCW (Rec: 07/02/22 16:44 DCW [id number]) Lumbar Spine Range of Motion Lumbar Spine Active Degrees Testing Position Standing Flexion 40 Extension 0 Comments Majority of flexion/extension occurs through hips or by bending knees, minimal lumbar ROM Lateral flexion measured in cm from fingertips to floor. PT-OP-L Special Tests Start: 07/02/22 16:25 Freq: Status: Active Protocol: Document 07/02/22 09:45 DCW (Rec: 07/02/22 17:46 DCW [id number]) Special Tests Lumbar Spine Special Tests Straight Leg Raise Test Results Hamstring tightness 50? bilaterally Standing Flexion Test Results Lumbar flexion limited Slump Test Results Negative Compression Test Results Negative A-P Shearing Test Results Negative Hip Special Tests NOEMÍ Test Results Mild L ipsilateral posterior hip pain PT-OP-Q Treatments Start: 07/02/22 16:25 Freq: Status: Active Protocol: Document 08/03/22 09:30 DCW (Rec: 08/03/22 10:12 DCW [id number]) Gym Equipment Shuttle Recovery Unilateral Squats Resistance 50# Shuttle Recovery Platform Stable Reps/Time 2x15 Bilateral Squats Resistance 87# Shuttle Recovery Platform Stable Reps/Time 2x15 Therapeutic Exercises Supine Exercises Piriformis Stretch Supine Exercise Name Piriformis Stretch - Figure-4 Side bilateral ITB Stretch Supine Exercise Name ITB Stretch Side bilateral Hamstring Stretch Supine Exercise Name HS stretch Side bilateral Comments Contract-relax Manual Therapy Treatment Soft Tissue Mobilization Lumbar paraspinals Body Location L Lumbar paraspinals Mobilization Type Strumming,Sustained Pressure Body Position Sidelying Manual Traction Lumbar Details Long-axis L LE /c strap Body Position Supine Hip Details Inferior force through Iliac crest Body Position Sidelying PT-OP-T Assessment and Plan Start: 07/02/22 16:25 Freq: Status: Active Protocol: Document 08/03/22 09:30 DCW (Rec: 08/03/22 10:12 DCW [id number]) Physical Therapy Assessment Impairments Impairments Functional Activities, Functional Mobility,Pain, Posture,ROM,Soft Tissue Mobility,Strength,Tone Goals Two Impairment Pt unable to walk more than 0. 5 miles at a time around his neighborhood. Documentation Liaison Goal (LTG) Pt to return to usual activity level of at least 6 miles of community walking each week without back or left leg pain. LTG Duration 09/01/22 One Impairment Pt does not have an appropriate home exercise program Short Term Goal (STG) Pt to be independent and compliant with an appropriate HEP STG Duration 08/01/22 Assessment Summary Assessment Pt continues to progress well, able to tolerate much more activity with significantly less overall low back/hip discomfort. Still noticeable weakness in L hip vs R, but pt doing well working on independent HEP. Physical Therapy Plan Frequency and Duration Frequency of Treatment 2x/Week Plan of Care Start Date 07/02/22 Plan of Care End Date 09/01/22 Therapeutic Interventions Therapeutic Interventions Gait Training,Home Exercise Program,Joint Mobilizations, Manual Therapy,Neuromuscular Re-education,Patient/Caregiver Education,Self-Care/Home Management,Soft Tissue Mobilization,Therapeutic Activities,Therapeutic Exercises Modalities Cold Pack/Ice Massage,Electric Stimulation,Hot Packs, Ultrasound Next Visit Focus/Plan Next Note Type Treatment Note Next Visit Plan STM, flexibility, core strengthening
--- NOTE | 2022-08-06 10:13 | PT.OTN ---
Current Diagnoses Lumbago with sciatica, left side (08/06/22) Low back pain, unspecified (08/06/22) Pain in left leg (08/06/22) Physical Therapy Treatment Note PT-OP-A Visit Information Start: 07/02/22 16:25 Freq: Status: Active Protocol: Document 08/06/22 09:30 DCW (Rec: 08/06/22 10:13 DCW [id number]) Out-Patient Physical Therapy Visit Information Visit Information Visit Type Treatment Note Visit Start Time 09:30 Visit Stop Time 10:15 Total Visit Minutes 45 Visit Number 8 Number of PRINCIPAL JAVA DEVELOPER Visits 0 Evaluation Information Evaluation Date 07/02/22 PT-OP-B Current Condition Start: 07/02/22 16:25 Freq: Status: Active Protocol: Document 07/02/22 09:45 DCW (Rec: 07/02/22 16:44 DCW [id number]) Current Condition History of Current Condition Onset Date 6 months Current Complaints Low back pain, radicular thigh pain History of Current Condition Pt is a 66 year old male presenting with a six month history of low back pain with occasional pain into his left thigh. Pt unsure of exact PHYLICIA, but notes that he had a sore heel, and thinks it changed the way he walked. Notes his pain typically worsens as the day goes on, improves with rest, but there is no specific thing that causes him to either experiencing worsening or improving pain. Admits that he used to walk 6 miles a week, but now is willy to make it a half mile because of pain. Limits him ability to exercise and do housework. Up until one week ago, pt was being treated in this clinic for a shoulder injury, but felt that his low back was a much bigger limiting factor. PT-OP-C Subjective Start: 07/02/22 16:25 Freq: Status: Active Protocol: Document 08/06/22 09:30 DCW (Rec: 08/06/22 10:13 DCW [id number]) OP-PT Subjective Patient Comments Patient Comments We've kind of flattened out the past few days, pt feels like there has not been much change recently. PT-OP-F Manual Assessment Start: 07/02/22 16:25 Freq: Status: Active Protocol: Document 07/02/22 09:45 DCW (Rec: 07/02/22 16:44 DCW [id number]) Manual Assessments Soft Tissue Assessment Soft Tissue Mobility Assessment Moderate tone left paraspinals , Left QL tightness, restricting lumbar mobility PT-OP-K Range of Motion Start: 07/02/22 16:25 Freq: Status: Active Protocol: Document 07/02/22 09:45 DCW (Rec: 07/02/22 16:44 DCW [id number]) Lumbar Spine Range of Motion Lumbar Spine Active Degrees Testing Position Standing Flexion 40 Extension 0 Comments Majority of flexion/extension occurs through hips or by bending knees, minimal lumbar ROM Lateral flexion measured in cm from fingertips to floor. PT-OP-L Special Tests Start: 07/02/22 16:25 Freq: Status: Active Protocol: Document 07/02/22 09:45 DCW (Rec: 07/02/22 17:46 DCW [id number]) Special Tests Lumbar Spine Special Tests Straight Leg Raise Test Results Hamstring tightness 50? bilaterally Standing Flexion Test Results Lumbar flexion limited Slump Test Results Negative Compression Test Results Negative A-P Shearing Test Results Negative Hip Special Tests NOEMÍ Test Results Mild L ipsilateral posterior hip pain PT-OP-Q Treatments Start: 07/02/22 16:25 Freq: Status: Active Protocol: Document 08/06/22 09:30 DCW (Rec: 08/06/22 10:13 DCW [id number]) Gym Equipment Shuttle Recovery Unilateral Squats Resistance 67# Shuttle Recovery Platform Stable Reps/Time 2x15 Bilateral Squats Resistance 100# Shuttle Recovery Platform Stable Reps/Time 2x15 Therapeutic Exercises Supine Exercises Piriformis Stretch Supine Exercise Name Piriformis Stretch - Figure-4 Side bilateral ITB Stretch Supine Exercise Name ITB Stretch Side bilateral Hamstring Stretch Supine Exercise Name HS stretch Side bilateral Comments Contract-relax Standing Exercises Hip Hiking Standing Exercise Name Hip Hiking Side bilateral Equipment Used 6 step Comments Difficulty /c L LE stance Other Exercises Hurdles Other Exercise Name Hurdles /c 5# ankle weights Comments Fwd, Lateral Manual Therapy Treatment Soft Tissue Mobilization Lumbar paraspinals Body Location L Lumbar paraspinals Mobilization Type Strumming,Sustained Pressure Body Position Sidelying Manual Traction Lumbar Details Long-axis L LE /c strap Body Position Supine Hip Details Inferior force through Iliac crest Body Position Sidelying PT-OP-T Assessment and Plan Start: 07/02/22 16:25 Freq: Status: Active Protocol: Document 08/06/22 09:30 DCW (Rec: 08/06/22 10:13 DCW [id number]) Physical Therapy Assessment Impairments Impairments Functional Activities, Functional Mobility,Pain, Posture,ROM,Soft Tissue Mobility,Strength,Tone Goals Two Impairment Pt unable to walk more than 0. 5 miles at a time around his neighborhood. Senior Living Goal (LTG) Pt to return to usual activity level of at least 6 miles of community walking each week without back or left leg pain. LTG Duration 09/01/22 One Impairment Pt does not have an appropriate home exercise program Short Term Goal (STG) Pt to be independent and compliant with an appropriate HEP STG Duration 08/01/22 Assessment Summary Assessment Struggled quite a bit today with hip hiking while standing on L leg, pt did not he just felt quite fatigued after other activities. Recommended he try it at home when better rested. Pt out of two next week, then unable to schedule for ~4 week. Will attempt to get in earlier if needed. Physical Therapy Plan Frequency and Duration Frequency of Treatment 2x/Week Plan of Care Start Date 07/02/22 Plan of Care End Date 09/01/22 Therapeutic Interventions Therapeutic Interventions Gait Training,Home Exercise Program,Joint Mobilizations, Manual Therapy,Neuromuscular Re-education,Patient/Caregiver Education,Self-Care/Home Management,Soft Tissue Mobilization,Therapeutic Activities,Therapeutic Exercises Modalities Cold Pack/Ice Massage,Electric Stimulation,Hot Packs, Ultrasound Next Visit Focus/Plan Next Note Type Treatment Note Next Visit Plan STM, flexibility, core strengthening
--- NOTE | 2022-09-01 11:00 | PT.OTN ---
Current Diagnoses Lumbago with sciatica, left side (09/01/22) Low back pain, unspecified (09/01/22) Pain in left leg (09/01/22) Physical Therapy Treatment Note PT-OP-A Visit Information Start: 07/02/22 16:25 Freq: Status: Active Protocol: Document 09/01/22 10:26 DCW (Rec: 09/01/22 11:00 DCW [id number]) Out-Patient Physical Therapy Visit Information Visit Information Visit Type Progress Note Visit Note 11 minutes late Visit Start Time 10:26 Visit Stop Time 11:00 Total Visit Minutes 34 Visit Number 9 Number of CUT TOBACCO BULKER Visits 0 Evaluation Information Evaluation Date 07/02/22 PT-OP-B Current Condition Start: 07/02/22 16:25 Freq: Status: Active Protocol: Document 07/02/22 09:45 DCW (Rec: 07/02/22 16:44 DCW [id number]) Current Condition History of Current Condition Onset Date 6 months Current Complaints Low back pain, radicular thigh pain History of Current Condition Pt is a 66 year old male presenting with a six month history of low back pain with occasional pain into his left thigh. Pt unsure of exact PHYLICIA, but notes that he had a sore heel, and thinks it changed the way he walked. Notes his pain typically worsens as the day goes on, improves with rest, but there is no specific thing that causes him to either experiencing worsening or improving pain. Admits that he used to walk 6 miles a week, but now is willy to make it a half mile because of pain. Limits him ability to exercise and do housework. Up until one week ago, pt was being treated in this clinic for a shoulder injury, but felt that his low back was a much bigger limiting factor. PT-OP-C Subjective Start: 07/02/22 16:25 Freq: Status: Active Protocol: Document 09/01/22 10:26 DCW (Rec: 09/01/22 11:00 DCW [id number]) OP-PT Subjective Patient Comments Patient Comments I've kind of relapsed. Pt notes that over his vacation, he had some good days and some bad, but overall feels like he is having more pain that he had been recently. PT-OP-F Manual Assessment Start: 07/02/22 16:25 Freq: Status: Active Protocol: Document 09/01/22 10:26 DCW (Rec: 09/01/22 10:35 [facility] [id number]) Manual Assessments Soft Tissue Assessment Soft Tissue Mobility Assessment Mild-moderate tone left paraspinals, Left QL tightness PT-OP-K Range of Motion Start: 07/02/22 16:25 Freq: Status: Active Protocol: Document 09/01/22 10:26 DCW (Rec: 09/01/22 10:35 [facility] [id number]) Lumbar Spine Range of Motion Lumbar Spine Active Degrees Testing Position Standing Flexion 55 Extension 12 Comments Majority of flexion/extension occurs through hips or by bending knees, minimal lumbar ROM Lateral flexion measured in cm from fingertips to floor. PT-OP-L Special Tests Start: 07/02/22 16:25 Freq: Status: Active Protocol: Document 09/01/22 10:26 DCW (Rec: 09/01/22 10:35 [facility] [id number]) Special Tests Lumbar Spine Special Tests Straight Leg Raise Test Results Hamstring tightness 65? bilaterally Standing Flexion Test Results Lumbar flexion limited Slump Test Results Negative Compression Test Results Negative A-P Shearing Test Results Negative Hip Special Tests NOEMÍ Test Results Mild L ipsilateral posterior hip pain PT-OP-Q Treatments Start: 07/02/22 16:25 Freq: Status: Active Protocol: Document 09/01/22 10:26 DCW (Rec: 09/01/22 11:00 [facility] [id number]) Gym Equipment Shuttle Recovery Unilateral Squats Resistance 67# Shuttle Recovery Platform Stable Reps/Time 2x15 Bilateral Squats Resistance 100# Shuttle Recovery Platform Stable Reps/Time 2x15 Therapeutic Exercises Standing Exercises BOSU Lunge Standing Exercise Name BOSU Lunge Side bilateral Hip Hiking Standing Exercise Name Hip Hiking Side bilateral Equipment Used 6 step Comments Difficulty /c L LE stance Other Exercises Hurdles Other Exercise Name Hurdles /c 5# ankle weights Comments Fwd, Lateral PT-OP-T Assessment and Plan Start: 07/02/22 16:25 Freq: Status: Active Protocol: Document 09/01/22 10:26 DCW (Rec: 09/01/22 11:00 [facility] [id number]) Physical Therapy Assessment Impairments Impairments Functional Activities, Functional Mobility,Pain, Posture,ROM,Soft Tissue Mobility,Strength,Tone Goals Two Impairment Pt unable to walk more than 0. 5 miles at a time around his neighborhood. Precision Lens Grinder Goal (LTG) Pt to return to usual activity level of at least 6 miles of community walking each week without back or left leg pain. LTG Duration 11/01/22 One Impairment Pt does not have an appropriate home exercise program Short Term Goal (STG) Pt to be independent and compliant with an appropriate HEP STG Duration 10/01/22 Assessment Summary Assessment Pt demonstrating some improvement, specifically with lumbar ROM and paraspinal muscle tone. 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 Would likely benefit from continued therapy focusing on improving hip and core strength, decreasing lumbar tone, and improving lumbar mobility. Physical Therapy Plan Frequency and Duration Frequency of Treatment 2x/Week Plan of Care Start Date 09/01/22 Plan of Care End Date 11/01/22 Therapeutic Interventions Therapeutic Interventions Gait Training,Home Exercise Program,Joint Mobilizations, Manual Therapy,Neuromuscular Re-education,Patient/Caregiver Education,Self-Care/Home Management,Soft Tissue Mobilization,Therapeutic Activities,Therapeutic Exercises Modalities Cold Pack/Ice Massage,Electric Stimulation,Hot Packs, Ultrasound Next Visit Focus/Plan Next Note Type Treatment Note Next Visit Plan STM, flexibility, core strengthening
--- NOTE | 2022-09-01 11:01 | PT.OPPOC ---
Physical, Occupational & Speech Therapy At [facility] Current Diagnoses Lumbago with sciatica, left side (09/01/22) Low back pain, unspecified (09/01/22) Pain in left leg (09/01/22) Visit Care Team Role Provider Type DARNELL English Attending Provider Advanced Wrapping Machine Tender Family Provider Primary Care Provider Referring Provider Specialty: [facility] Practice Address: [address] [place] [address], [facility] Email: [email or web address] Plan Of Care PT-OP-T Assessment and Plan Start: 07/02/22 16:25 Freq: Status: Active Protocol: Document 09/01/22 10:26 DCW (Rec: 09/01/22 11:00 DCW [id number]) Physical Therapy Assessment Impairments Impairments Functional Activities, Functional Mobility,Pain, Posture,ROM,Soft Tissue Mobility,Strength,Tone Goals Two Impairment Pt unable to walk more than 0. 5 miles at a time around his neighborhood. [facility]pc Goal (LTG) Pt to return to usual activity level of at least 6 miles of community walking each week without back or left leg pain. LTG Duration 11/01/22 One Impairment Pt does not have an appropriate home exercise program Short Term Goal (STG) Pt to be independent and compliant with an appropriate HEP STG Duration 10/01/22 Assessment Summary Assessment Pt demonstrating some improvement, specifically with lumbar ROM and paraspinal muscle tone. 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 Would likely benefit from continued therapy focusing on improving hip and core strength, decreasing lumbar tone, and improving lumbar mobility. Physical Therapy Plan Frequency and Duration Frequency of Treatment 2x/Week Plan of Care Start Date 09/01/22 Plan of Care End Date 11/01/22 Therapeutic Interventions Therapeutic Interventions Gait Training,Home Exercise Program,Joint Mobilizations, Manual Therapy,Neuromuscular Re-education,Patient/Caregiver Education,Self-Care/Home Management,Soft Tissue Mobilization,Therapeutic Activities,Therapeutic Exercises Modalities Cold Pack/Ice Massage,Electric Stimulation,Hot Packs, Ultrasound Next Visit Focus/Plan Next Note Type Treatment Note Next Visit Plan STM, flexibility, core strengthening Plan of Care Dates Plan of Care Start Date 09/01/22 Plan of Care End Date 11/01/22 Electronically Signed by: Juan Lindquist, SEAN 09/01/22 [id number] If you are in agreement with this Plan of Care, please return a signed and dated copy. I have reviewed this Plan of Care and certify that the skilled therapy services above are required to meet the patient?s needs. Physician Signature Date Printed Name and Credentials Clinical Instructor Signature Printed Name and Credentials
--- NOTE | 2022-09-04 12:15 | PT.OTN ---
Current Diagnoses Lumbago with sciatica, left side (09/04/22) Low back pain, unspecified (09/04/22) Pain in left leg (09/04/22) Physical Therapy Treatment Note PT-OP-A Visit Information Start: 07/02/22 16:25 Freq: Status: Active Protocol: Document 09/04/22 11:32 DCW (Rec: 09/04/22 12:15 DCW [id number]) Out-Patient Physical Therapy Visit Information Visit Information Visit Type Treatment Note Visit Start Time 11:32 Visit Stop Time 12:15 Total Visit Minutes 43 Visit Number 10 Number of BUSINESS SERVICES ADMINISTRATOR Visits 0 Evaluation Information Evaluation Date 07/02/22 PT-OP-B Current Condition Start: 07/02/22 16:25 Freq: Status: Active Protocol: Document 07/02/22 09:45 DCW (Rec: 07/02/22 16:44 DCW [id number]) Current Condition History of Current Condition Onset Date 6 months Current Complaints Low back pain, radicular thigh pain History of Current Condition Pt is a 66 year old male presenting with a six month history of low back pain with occasional pain into his left thigh. Pt unsure of exact PHYLICIA, but notes that he had a sore heel, and thinks it changed the way he walked. Notes his pain typically worsens as the day goes on, improves with rest, but there is no specific thing that causes him to either experiencing worsening or improving pain. Admits that he used to walk 6 miles a week, but now is willy to make it a half mile because of pain. Limits him ability to exercise and do housework. Up until one week ago, pt was being treated in this clinic for a shoulder injury, but felt that his low back was a much bigger limiting factor. PT-OP-C Subjective Start: 07/02/22 16:25 Freq: Status: Active Protocol: Document 09/04/22 11:32 DCW (Rec: 09/04/22 12:15 DCW [id number]) OP-PT Subjective Patient Comments Patient Comments Pt feeling better today than earlier this week, but still was pretty sore waking up this morning. PT-OP-F Manual Assessment Start: 07/02/22 16:25 Freq: Status: Active Protocol: Document 09/01/22 10:26 DCW (Rec: 09/01/22 10:35 DCW [id number]) Manual Assessments Soft Tissue Assessment Soft Tissue Mobility Assessment Mild-moderate tone left paraspinals, Left QL tightness PT-OP-K Range of Motion Start: 07/02/22 16:25 Freq: Status: Active Protocol: Document 09/01/22 10:26 DCW (Rec: 09/01/22 10:35 DCW [id number]) Lumbar Spine Range of Motion Lumbar Spine Active Degrees Testing Position Standing Flexion 55 Extension 12 Comments Majority of flexion/extension occurs through hips or by bending knees, minimal lumbar ROM Lateral flexion measured in cm from fingertips to floor. PT-OP-L Special Tests Start: 07/02/22 16:25 Freq: Status: Active Protocol: Document 09/01/22 10:26 DCW (Rec: 09/01/22 10:35 DCW [id number]) Special Tests Lumbar Spine Special Tests Straight Leg Raise Test Results Hamstring tightness 65? bilaterally Standing Flexion Test Results Lumbar flexion limited Slump Test Results Negative Compression Test Results Negative A-P Shearing Test Results Negative Hip Special Tests NOEMÍ Test Results Mild L ipsilateral posterior hip pain PT-OP-Q Treatments Start: 07/02/22 16:25 Freq: Status: Active Protocol: Document 09/04/22 11:32 DCW (Rec: 09/04/22 12:15 DCW [id number]) Gym Equipment Shuttle Recovery Unilateral Squats Resistance 67# Shuttle Recovery Platform Stable Reps/Time 2x15 Bilateral Squats Resistance 100# (Two new) Shuttle Recovery Platform Stable Reps/Time 2x15 Therapeutic Exercises Supine Exercises Piriformis Stretch Supine Exercise Name Piriformis Stretch - Figure-4 Side bilateral ITB Stretch Supine Exercise Name ITB Stretch Side bilateral Hamstring Stretch Supine Exercise Name HS stretch Side bilateral Comments Contract-relax Sidelying Exercises Open book Sidelying Exercise Name Open Book Side bilateral Standing Exercises BOSU Lunge Standing Exercise Name BOSU Lunge Side bilateral Hip Hiking Standing Exercise Name Hip Hiking Side bilateral Equipment Used 6 step Comments Difficulty /c L LE stance Other Exercises Hurdles Other Exercise Name Hurdles /c 5# ankle weights Comments Fwd, Lateral Manual Therapy Treatment Soft Tissue Mobilization Lumbar paraspinals Body Location L Lumbar paraspinals Mobilization Type Strumming,Sustained Pressure Body Position Sidelying Manual Traction Lumbar Details Long-axis L LE /c strap Body Position Supine Hip Details Inferior force through Iliac crest Body Position Sidelying PT-OP-T Assessment and Plan Start: 07/02/22 16:25 Freq: Status: Active Protocol: Document 09/04/22 11:32 DCW (Rec: 09/04/22 12:15 DCW [id number]) Physical Therapy Assessment Impairments Impairments Functional Activities, Functional Mobility,Pain, Posture,ROM,Soft Tissue Mobility,Strength,Tone Goals Two Impairment Pt unable to walk more than 0. 5 miles at a time around his neighborhood. Can Marker Goal (LTG) Pt to return to usual activity level of at least 6 miles of community walking each week without back or left leg pain. LTG Duration 11/01/22 One Impairment Pt does not have an appropriate home exercise program Short Term Goal (STG) Pt to be independent and compliant with an appropriate HEP STG Duration 10/01/22 Assessment Summary Assessment Pt has increased enough in mobility that he is now able to perform open book and [place] stretches without limitations from other tightness in his body, recommended adding to ongoing HEP. Physical Therapy Plan Frequency and Duration Frequency of Treatment 2x/Week Plan of Care Start Date 09/01/22 Plan of Care End Date 11/01/22 Therapeutic Interventions Therapeutic Interventions Gait Training,Home Exercise Program,Joint Mobilizations, Manual Therapy,Neuromuscular Re-education,Patient/Caregiver Education,Self-Care/Home Management,Soft Tissue Mobilization,Therapeutic Activities,Therapeutic Exercises Modalities Cold Pack/Ice Massage,Electric Stimulation,Hot Packs, Ultrasound Next Visit Focus/Plan Next Note Type Treatment Note Next Visit Plan STM, flexibility, core strengthening
--- NOTE | 2022-09-08 10:57 | PT.OTN ---
Current Diagnoses Lumbago with sciatica, left side (09/08/22) Low back pain, unspecified (09/08/22) Pain in left leg (09/08/22) Physical Therapy Treatment Note PT-OP-A Visit Information Start: 07/02/22 16:25 Freq: Status: Active Protocol: Document 09/08/22 10:15 DCW (Rec: 09/08/22 10:57 DCW [id number]) Out-Patient Physical Therapy Visit Information Visit Information Visit Type Treatment Note Visit Start Time 10:15 Visit Stop Time 11:00 Total Visit Minutes 45 Visit Number 11 Number of BOILERS AND PRESSURE VESSELS INSPECTOR Visits 0 Evaluation Information Evaluation Date 07/02/22 PT-OP-B Current Condition Start: 07/02/22 16:25 Freq: Status: Active Protocol: Document 07/02/22 09:45 DCW (Rec: 07/02/22 16:44 DCW [id number]) Current Condition History of Current Condition Onset Date 6 months Current Complaints Low back pain, radicular thigh pain History of Current Condition Pt is a 66 year old male presenting with a six month history of low back pain with occasional pain into his left thigh. Pt unsure of exact PHYLICIA, but notes that he had a sore heel, and thinks it changed the way he walked. Notes his pain typically worsens as the day goes on, improves with rest, but there is no specific thing that causes him to either experiencing worsening or improving pain. Admits that he used to walk 6 miles a week, but now is willy to make it a half mile because of pain. Limits him ability to exercise and do housework. Up until one week ago, pt was being treated in this clinic for a shoulder injury, but felt that his low back was a much bigger limiting factor. PT-OP-C Subjective Start: 07/02/22 16:25 Freq: Status: Active Protocol: Document 09/08/22 10:15 DCW (Rec: 09/08/22 10:57 DCW [id number]) OP-PT Subjective Patient Comments Patient Comments I'm feeling pretty good today . I woke up with a little kink , but did some stretching, and it feels a lot better. PT-OP-F Manual Assessment Start: 07/02/22 16:25 Freq: Status: Active Protocol: Document 09/01/22 10:26 DCW (Rec: 09/01/22 10:35 DCW [id number]) Manual Assessments Soft Tissue Assessment Soft Tissue Mobility Assessment Mild-moderate tone left paraspinals, Left QL tightness PT-OP-K Range of Motion Start: 07/02/22 16:25 Freq: Status: Active Protocol: Document 09/01/22 10:26 DCW (Rec: 09/01/22 10:35 DCW [id number]) Lumbar Spine Range of Motion Lumbar Spine Active Degrees Testing Position Standing Flexion 55 Extension 12 Comments Majority of flexion/extension occurs through hips or by bending knees, minimal lumbar ROM Lateral flexion measured in cm from fingertips to floor. PT-OP-L Special Tests Start: 07/02/22 16:25 Freq: Status: Active Protocol: Document 09/01/22 10:26 DCW (Rec: 09/01/22 10:35 DCW [id number]) Special Tests Lumbar Spine Special Tests Straight Leg Raise Test Results Hamstring tightness 65? bilaterally Standing Flexion Test Results Lumbar flexion limited Slump Test Results Negative Compression Test Results Negative A-P Shearing Test Results Negative Hip Special Tests NOEMÍ Test Results Mild L ipsilateral posterior hip pain PT-OP-Q Treatments Start: 07/02/22 16:25 Freq: Status: Active Protocol: Document 09/08/22 10:15 DCW (Rec: 09/08/22 10:57 DCW [id number]) Gym Equipment Shuttle Recovery Unilateral Squats Resistance 67# (Two new) Shuttle Recovery Platform Stable Reps/Time 2x15 Bilateral Squats Resistance 100# (Two new) Shuttle Recovery Platform Stable Reps/Time 2x15 Therapeutic Exercises Supine Exercises Piriformis Stretch Supine Exercise Name Piriformis Stretch - Figure-4 Side bilateral ITB Stretch Supine Exercise Name ITB Stretch Side bilateral Hamstring Stretch Supine Exercise Name HS stretch Side bilateral Comments Contract-relax Standing Exercises BOSU Lunge Standing Exercise Name BOSU Lunge Side bilateral Hip Hiking Standing Exercise Name Hip Hiking Side bilateral Equipment Used 6 step Comments Difficulty /c L LE stance Other Exercises Hurdles Other Exercise Name Hurdles /c 5# ankle weights Comments Fwd, Lateral Manual Therapy Treatment Soft Tissue Mobilization Lumbar paraspinals Body Location L Lumbar paraspinals Mobilization Type Strumming,Sustained Pressure Body Position Sidelying Manual Traction Hip Details Inferior force through Iliac crest Body Position Sidelying PT-OP-T Assessment and Plan Start: 07/02/22 16:25 Freq: Status: Active Protocol: Document 09/08/22 10:15 DCW (Rec: 09/08/22 10:57 DCW [id number]) Physical Therapy Assessment Impairments Impairments Functional Activities, Functional Mobility,Pain, Posture,ROM,Soft Tissue Mobility,Strength,Tone Goals Two Impairment Pt unable to walk more than 0. 5 miles at a time around his neighborhood. Senior Living Goal (LTG) Pt to return to usual activity level of at least 6 miles of community walking each week without back or left leg pain. LTG Duration 11/01/22 One Impairment Pt does not have an appropriate home exercise program Short Term Goal (STG) Pt to be independent and compliant with an appropriate HEP STG Duration 10/01/22 Assessment Summary Assessment Pt still fatigues much more quickly with left LE activities, especially hip hiking and hurdles. Reminded to add open book to HEP. Physical Therapy Plan Frequency and Duration Frequency of Treatment 2x/Week Plan of Care Start Date 09/01/22 Plan of Care End Date 11/01/22 Therapeutic Interventions Therapeutic Interventions Gait Training,Home Exercise Program,Joint Mobilizations, Manual Therapy,Neuromuscular Re-education,Patient/Caregiver Education,Self-Care/Home Management,Soft Tissue Mobilization,Therapeutic Activities,Therapeutic Exercises Modalities Cold Pack/Ice Massage,Electric Stimulation,Hot Packs, Ultrasound Next Visit Focus/Plan Next Note Type Treatment Note Next Visit Plan STM, flexibility, core strengthening
--- NOTE | 2022-09-11 11:14 | PT.OTN ---
Current Diagnoses Lumbago with sciatica, left side (09/11/22) Low back pain, unspecified (09/11/22) Pain in left leg (09/11/22) Physical Therapy Treatment Note PT-OP-A Visit Information Start: 07/02/22 16:25 Freq: Status: Active Protocol: Document 09/11/22 10:30 DCW (Rec: 09/11/22 11:14 DCW [id number]) Out-Patient Physical Therapy Visit Information Visit Information Visit Type Discharge Summary Visit Start Time 10:30 Visit Stop Time 11:15 Total Visit Minutes 45 Visit Number 12 Number of ROD BUSTER HELPER Visits 0 Evaluation Information Evaluation Date 07/02/22 PT-OP-B Current Condition Start: 07/02/22 16:25 Freq: Status: Active Protocol: Document 07/02/22 09:45 DCW (Rec: 07/02/22 16:44 DCW [id number]) Current Condition History of Current Condition Onset Date 6 months Current Complaints Low back pain, radicular thigh pain History of Current Condition Pt is a 66 year old male presenting with a six month history of low back pain with occasional pain into his left thigh. Pt unsure of exact PHYLICIA, but notes that he had a sore heel, and thinks it changed the way he walked. Notes his pain typically worsens as the day goes on, improves with rest, but there is no specific thing that causes him to either experiencing worsening or improving pain. Admits that he used to walk 6 miles a week, but now is willy to make it a half mile because of pain. Limits him ability to exercise and do housework. Up until one week ago, pt was being treated in this clinic for a shoulder injury, but felt that his low back was a much bigger limiting factor. PT-OP-C Subjective Start: 07/02/22 16:25 Freq: Status: Active Protocol: Document 09/11/22 10:30 DCW (Rec: 09/11/22 11:14 DCW [id number]) OP-PT Subjective Patient Comments Patient Comments I'm a little sore, but not too bad. PT-OP-F Manual Assessment Start: 07/02/22 16:25 Freq: Status: Active Protocol: Document 09/01/22 10:26 DCW (Rec: 09/01/22 10:35 DCW [id number]) Manual Assessments Soft Tissue Assessment Soft Tissue Mobility Assessment Mild-moderate tone left paraspinals, Left QL tightness PT-OP-K Range of Motion Start: 07/02/22 16:25 Freq: Status: Active Protocol: Document 09/01/22 10:26 DCW (Rec: 09/01/22 10:35 DCW [id number]) Lumbar Spine Range of Motion Lumbar Spine Active Degrees Testing Position Standing Flexion 55 Extension 12 Comments Majority of flexion/extension occurs through hips or by bending knees, minimal lumbar ROM Lateral flexion measured in cm from fingertips to floor. PT-OP-L Special Tests Start: 07/02/22 16:25 Freq: Status: Active Protocol: Document 09/01/22 10:26 DCW (Rec: 09/01/22 10:35 DCW [id number]) Special Tests Lumbar Spine Special Tests Straight Leg Raise Test Results Hamstring tightness 65? bilaterally Standing Flexion Test Results Lumbar flexion limited Slump Test Results Negative Compression Test Results Negative A-P Shearing Test Results Negative Hip Special Tests NOEMÍ Test Results Mild L ipsilateral posterior hip pain PT-OP-Q Treatments Start: 07/02/22 16:25 Freq: Status: Active Protocol: Document 09/11/22 10:30 DCW (Rec: 09/11/22 11:14 DCW [id number]) Gym Equipment Shuttle Recovery Unilateral Squats Resistance 67# (Two new) Shuttle Recovery Platform Stable Reps/Time 2x15 Bilateral Squats Resistance 100# (Four new) Shuttle Recovery Platform Stable Reps/Time 2x15 Therapeutic Exercises Supine Exercises Piriformis Stretch Supine Exercise Name Piriformis Stretch - Figure-4 Side bilateral ITB Stretch Supine Exercise Name ITB Stretch Side bilateral Hamstring Stretch Supine Exercise Name HS stretch Side bilateral Comments Contract-relax Standing Exercises BOSU Lunge Standing Exercise Name BOSU Lunge Side bilateral Hip Hiking Standing Exercise Name Hip Hiking Side bilateral Equipment Used 6 step Comments Difficulty /c L LE stance Other Exercises Hurdles Other Exercise Name Hurdles /c 5# ankle weights Comments Fwd, Lateral Manual Therapy Treatment Soft Tissue Mobilization Lumbar paraspinals Body Location L Lumbar paraspinals Mobilization Type Strumming,Sustained Pressure Body Position Sidelying Manual Traction Hip Details Inferior force through Iliac crest Body Position Sidelying PT-OP-T Assessment and Plan Start: 07/02/22 16:25 Freq: Status: Active Protocol: Document 09/11/22 10:30 DCW (Rec: 09/11/22 11:14 DCW [id number]) Physical Therapy Assessment Impairments Impairments Functional Activities, Functional Mobility,Pain, Posture,ROM,Soft Tissue Mobility,Strength,Tone Goals Two Impairment Pt unable to walk more than 0. 5 miles at a time around his neighborhood. Correction Goal (LTG) Pt to return to usual activity level of at least 6 miles of community walking each week without back or left leg pain. LTG Duration 11/01/22 One Impairment Pt does not have an appropriate home exercise program Short Term Goal (STG) Pt to be independent and compliant with an appropriate HEP STG Duration 10/01/22 Assessment Summary Assessment Pt feels he is at an appropriate point for discharge to independent HEP. Will continue to work on his own. Understands that he will require a new referral in order to return in the future if needed. Physical Therapy Plan Frequency and Duration Frequency of Treatment 2x/Week Plan of Care Start Date 09/01/22 Plan of Care End Date 11/01/22 Therapeutic Interventions Therapeutic Interventions Gait Training,Home Exercise Program,Joint Mobilizations, Manual Therapy,Neuromuscular Re-education,Patient/Caregiver Education,Self-Care/Home Management,Soft Tissue Mobilization,Therapeutic Activities,Therapeutic Exercises Modalities Cold Pack/Ice Massage,Electric Stimulation,Hot Packs, Ultrasound Discharge Physical Therapy Discharge Reasons Patient Request Next Visit Focus/Plan Next Note Type Discharge Summary
== END 2022-09-14 13:58 | disposition home or self-care (01) ==
LOC: PHYS 10:30
PROVIDERS: Absent Provider Nurse Practitioner; Family Provider Nurse Practitioner; PCP Nurse Practitioner; Referring Provider Nurse Practitioner; Visit Provider Nurse Practitioner
DX: M54.50 Low back pain, unspecified (principal); M79.605 Pain in left leg; M54.42 Lumbago with sciatica, left side
CPT/HCPCS: 97110; 97140; 97161

== ENCOUNTER → 2023-02-16 07:54 | Outpatient (CLI) | payer MEDICARE, SELFPAY ==
[2023-02-16 10:13] LABS: Alanine Aminotransferase 36 IU/L (<50); Albumin 4.1 g/dL (3.5-5.0); Albumin Globulin Ratio 1.2 (1.0-2.8); Alkaline Phosphatase 76 U/L (38-126); Aspartate Aminotransferase 32 IU/L (17-59); BUN Creatinine Ratio 20.9 (6-22); Bilirubin Total 0.9 mg/dL (0.2-1.3); Blood Urea Nitrogen 19 mg/dL (9-20); Calcium 9.1 mg/dL (8.4-10.2); Carbon Dioxide 23 mmol/L (22-32); Chloride 103 mmol/L (98-107); Cholesterol 183 mg/dL (140-199); Estimated Glomerular Filt Rate > 60 mL/min (>60); Globulin 3.4 g/dL (1.7-4.1); Glucose 108 mg/dL (80-110); HDL Cholesterol 38 mg/dL (40-60); HEMOLYSIS < 15 (0-50); LDL Cholesterol Calculated 113 mg/dL (<100); Potassium 3.8 mmol/L (3.4-5.1); Sodium 134 mmol/L (137-145); Total Protein 7.5 g/dL (6.3-8.2); Triglycerides 159 mg/dL (35-150)
[2023-02-16 10:24] LABS: Creatinine Urine Random 47.1 mg/dL
[2023-02-16 10:26] LABS: Free T3, Triiodothyronine Free 4.41 pg/mL (2.77-5.27); Free T4, Direct Thyroxine 0.95 ng/dL (0.78-2.19)
[2023-02-16 10:29] LABS: Microalbumi Creatinin Ratio Ur 19.1 ug/mg CR (<30); Microalbumin Urine Random 0.9 mg/dL (0-1.6)
[2023-02-16 10:38] LABS: Thyroid Stimulating Hormone 1.25 uIU/mL (0.47-4.68)
== END ==
PROVIDERS: Family Provider Nurse Practitioner; PCP Nurse Practitioner; Referring Provider Nurse Practitioner; Visit Provider Nurse Practitioner
DX: Z00.00 Encounter for general adult medical examination without abnormal findings (principal); E78.5 Hyperlipidemia, unspecified
CPT/HCPCS: 36415; 80053; 80061; 82043; 82570; 84439; 84443; 84481

== ENCOUNTER → 2023-03-23 11:08 | Outpatient (CLI) | payer MEDICARE, SELFPAY ==
--- NOTE | 2023-03-23 11:10 | DI.CT.S_ITS ---
PROCEDURE: CT UE RT WO CON INDICATIONS: Primary osteoarthritis, right shoulder TECHNIQUE: Noncontrast 1-1.5 mm thick sections acquired from the acromioclavicular joint to the inferior scapula, with coronal and sagittal reformatting. COMPARISON: [facility], MR, MR SHOULDER RT WO CON, 06/09/2022, 12:44. [facility], CR, XR SHOULDER 2+ VIEWS RIGHT, 06/16/2022, 8:47. [facility], CR, XR SHOULDER 2+ VIEWS RIGHT, 03/11/2023, 10:08. FINDINGS: Image quality: Excellent. Bones: No acute osseous fracture or dislocation. Full-thickness joint space narrowing is seen at the glenohumeral joint with subchondral sclerosis, subchondral cystic changes, marginal osteophyte formation, and mild remodeling of the articular surfaces. There is approximately 14 degrees glenoid retroversion relative to the midplane of the scapula at the mid glenoid level. Moderate degenerative changes are seen at the acromioclavicular joint with downsloping of the lateral acromion. Nonspecific small peripherally sclerotic lesion is seen in the spine of the scapula with nonaggressive features. The included ribs are intact. Degenerative changes are seen in the included spine. Soft tissues: No significant glenohumeral effusion. There is no significant rotator cuff muscle atrophy. The tendons, ligaments, articular cartilages, and labrum are not well evaluated on standard CT. The musculature surrounding the shoulder is otherwise normal in bulk. The included portions of the lung are clear. IMPRESSION: 1. Severe glenohumeral osteoarthrosis as described in the body of the report. There is approximately fourteen degrees glenoid retroversion relative to the midplane of the scapula at the mid glenoid level. 2. Moderate acromioclavicular joint osteoarthrosis. Approved by: Bryant Fields M.D. on 03/23/2023 at 15:10
== END ==
LOC: CT 11:10
PROVIDERS: Family Provider Nurse Practitioner; PCP Nurse Practitioner; Referring Provider Orthopaedic Surgery; Visit Provider Orthopaedic Surgery
DX: M19.011 Primary osteoarthritis, right shoulder (principal)
CPT/HCPCS: 73200

== ENCOUNTER → 2023-05-07 09:53 | Outpatient (CLI) | payer MEDICARE, SELFPAY ==
[2023-05-07 10:37] LABS: Add Manual Diff / Slide Review NO; Basophils Absolute Auto 0 /uL (0-100); Basophils Percent Auto 0.8 % (0-2); Eosinophils Absolute Auto 300 /uL (0-450); Eosinophils Percent Auto 5.2 % (2-4); Hematocrit 43.3 % (41-53); Lymphocytes Absolute Auto 1800 /uL (1100-4500); Lymphocytes Percent Auto 30.2 % (25-40); Mean Corpuscular HGB Conc 34.5 % (30-36); Mean Corpuscular Hemoglobin 30.1 PG (26-34); Mean Corpuscular Volume 87.2 fL (80-100); Monocytes Absolute Auto 700 /uL (0-900); Monocytes Percent Auto 10.9 % (3-14); Neutrophils Absolute Auto 3200 /uL (1500-7000); Neutrophils Percent Auto 52.9 % (50-75); Platelet Count 224 X10^3/uL (150-400); Red Blood Cell Count 4.96 X10^6/uL (4.5-5.9); Red Cell Distribution Width 13.2 % (11.6-14.8); White Blood Cell Count 6.1 X10^3/uL (4.5-11.0)
[2023-05-07 11:00] LABS: BUN Creatinine Ratio 21.6 (6-22); Blood Urea Nitrogen 22 mg/dL (9-20); Calcium 9.1 mg/dL (8.4-10.2); Carbon Dioxide 23 mmol/L (22-32); Chloride 104 mmol/L (98-107); Estimated Glomerular Filt Rate > 60 mL/min (>60); Glucose 117 mg/dL (80-110); HEMOLYSIS < 15 (0-50); Potassium 4.1 mmol/L (3.4-5.1); Sodium 139 mmol/L (137-145)
== END ==
LOC: RESP 09:55
PROVIDERS: Family Provider Nurse Practitioner; PCP Nurse Practitioner; Referring Provider Orthopaedic Surgery; Visit Provider Orthopaedic Surgery
DX: Z01.818 Encounter for other preprocedural examination (principal); Z01.812 Encounter for preprocedural laboratory examination
CPT/HCPCS: 36415; 80048; 85025; 93005; 93010

== ENCOUNTER 2023-07-01 06:15 | Day surgery (SDC) | payer MEDICARE, SELFPAY ==
[2023-06-21 08:40] VITALS: BMI 31.5
[2023-07-01] VITALS (7 sets, daily range): BP systolic 113–148; BP diastolic 77–93; PULSE 69–103; RESP 16–29; TEMP 36.2–36.8; O2SAT 91–98; BMI 31.5
--- NOTE | 2023-07-01 06:00 | DI.RAD.S_ITS ---
PROCEDURE: XR SHOULDER RT 1V INDICATIONS: TSA TECHNIQUE: 1 views of the shoulder were acquired. COMPARISON: [facility], CT, CT UE RT WO CON, 03/23/2023, 11:19. FINDINGS: Bones: Right humeral head arthroplasty. No fractures or dislocations. No suspicious bony lesions. Visualized ribs appear intact. Soft tissues: No suspicious soft tissue calcifications. IMPRESSION: Right humeral head arthroplasty projects in the expected location. Dictated by: Saeid Galloway M.D. on 07/01/2023 at 10:41 Approved by: Saeid Galloway M.D. on 07/01/2023 at 10:43
[2023-07-01] MEDS: LACTATED RINGERS 1,000 ML 42 ML IV ×2 (06:51→09:22)
[2023-07-01] MEDS: ACETAMINOPHEN 325 MG TABLET 975 MG PO (06:52)
--- NOTE | 2023-07-01 07:36 | SUR.OPER ---
Beach chair with skytron shoulder positioner. Lower body on padded OR bed. Head in foam padded head cradle, secured with straps. Non-operative arm secured <90 degrees abduction. Pillow under knees. Safety belt at thigh. Cloth tape over blanket over lower legs.
--- NOTE | 2023-07-01 07:51 | PM.PREOP ---
Pre-operative Note Interval Note History & Physical reviewed/Exam performed by Physician: Yes Changes to H&P: No
--- NOTE | 2023-07-01 07:54 | SUR.PREOP ---
Block start time [0740] . Monitoring initiated and maintained throughout procedure. Oxygen and medications given per anesthesiologist instructions. Patient remained stable throughout procedure, no adverse reactions noted. Block end time [0749].
[2023-07-01] MEDS: CEFAZOLIN 2 GM/100 ML PREMIX 100 ML IV (07:55)
[2023-07-01] MEDS: TRANEXAMIC ACID 1,000 MG VIAL 1000 MG INJ ×2 (08:33→09:23)
--- NOTE | 2023-07-01 09:56 | P.OP_ITS ---
Operative Date/Time/Diagnoses Date of procedure: 07/01/23 Time of procedure: 09:56 Pre-op diagnosis: Right glenohumeral arthritis Post-op diagnosis: same Procedure & Clinicians Procedure: Right anatomic total shoulder arthroplasty and biceps tenodesis Same procedure as scheduled: Yes Indications: Indications: This is a 67-year-old male who has primary osteoarthritis of the glenohumeral joint. Symptoms have been present for years, insidious onset. Patient has failed conservative therapy. After extensive discussion in clinic, they wished to go forward with surgery. Risks and benefits were described including the risk of infection, bleeding, damage to internal structures including nerves. We also discussed the risk of failure of surgery and the need for revision surgery as well as the risk of anesthesia. The patient expressed understanding with these risks and wished to go forward with surgery. Surgeon: Lucho Molina Director Talent Management: Muriel Gamez Anesthesia Type: General Operative Notes Findings: Findings: Osteoarthritis of the glenoid and humeral head as noted on preoperative imaging and under direct visualization Closure Type: primary Specimen(s): none sent Prosthetic devices, grafts, tissues, transplants, or devices: [employer] CortiLoc Pegged Glenoid UHMWPE M40 Simpliciti Nucleus Size 2 Simpliciti CoCr head size 16 x 43 Estimated Blood Loss (mL): 50 Blood products transfused: none Procedure in detail: Operative note: Patient was seen in the preoperative holding unit. The correct right shoulder was identified and marked with my initials. Again we discussed the risks and benefits of surgery and they wished to go forward with surgery. The patient was brought back to the operating room and placed supine on the operating table. he underwent smooth endotracheal intubation. All prominences were padded and they were placed into the beach chair position. Intravenous antibiotics were given. The right shoulder was then prepped with the standard sterile preparation and draping. A time-out was then performed in my initials were again identified on the correct shoulder. 1 g of IV tranexamic acid was given. A standard deltopectoral incision was made. Skin flaps were made. The cephalic vein was identified and retracted laterally. This was protected throughout the remainder of the case. Sharp dissection was made along the deltoid, subacromial and subcoracoid space to release adhesions. The conjoined tendon was identified and the axillary nerve was palpated and continuous using the tug test. It was protected throughout the remainder of the case. A brown retractor was placed underneath the deltoid muscle and a darach retractor underneath the conjoint tendon. The anterior circumflex artery and associated veins on the lower border of the subscapularis were identified and tied off using 0-Vicryl. The biceps tendon was identified in the bicipital groove. This was released from its sheath, and taken from its origin on the glenoid and tied into the pectoralis tendon for a solid tenodesis. We then began a subscapularis peel. The subscapularis was tagged with an Ethibond suture. A 360 degree circumferential release of the subscapularis was performed with protection of the axillary nerve. The coracohumeral ligament was released at the base of the coracoid. The coracoacromial ligament was left intact. The shoulder was then dislocated. Osteophytes were removed using combination of rongeur and osteotome. The rotator cuff was noted to be intact. Using an oscillating saw a conservative humeral head cut was made using the patient's ek[place] version. The head was measured and a guide for size 2 nucleus for simpliciti humeral head was used to drill a central hole followed by impaction. Attention was then turned to the glenoid. After retracting the humeral head posteriorly, release of the capsule and labrum was performed. Central guidewire was placed. The glenoid was then reamed followed by a central drill over the guidewire. Guidewire was removed and using a guide, peripheral holes were drilled. At this point dilute Betadine wash was performed for 2 minutes. Medium viscosity cement was mixed and the drill holes were completely dried. An all polyethylene pegged glenoid was then selected, and cemented into the glenoid. Turning back to the humerus, the humeral head was delivered and 3 seperate [place] Loupes were passed through drill holes through the lesser tuberosity into the bicipital groove. The nucleus was then impacted into the humerus and a size 43 x 16 stemless humeral head was placed. The shoulder was then reduced and again brought through range of motion and was felt to be stable. The rotator cuff interval was closed with a [id number] Ethibond suture. The subscapularis was then repaired using a modified racking hitch with niece loupes. The skin was closed with 2-0 Vicryl and Monocryl followed by Aquacel dressing. Patient was awoken from anesthesia and brought back to the postoperative recovery unit without issue. They were placed into a sling. Assisting participation: This operation could not have been safely performed (without compromising the technical results or length of the procedure) without the assistance of a skilled respiratory assistant. The respiratory assistant was medically necessary for proper positioning, retraction and manipulation of instruments, proper exposure, graft prep, and manipulation of tissue. Complications: none Post-operative Condition: stable Disposition: PACU Plan for aftercare: Postoperative instructions: Sling to remain on for 6 weeks. No external rotation past neutral for 6 weeks. Okay for sling to come off for shower and gentle pendulum exercises. Okay to shower over the Aquacel dressing. If any water gets underneath the dressing, remove the dressing. First postoperative visit in 2 weeks.
[2023-07-01] MEDS: ONDANSETRON 4 MG/2 ML INJ IV (10:02)
[2023-07-01] MEDS: hydrOXYzine 50 MG/ML INJ 25 MG IM (10:04)
== END 2023-07-01 10:51 | disposition home or self-care (01) ==
PROVIDERS: Family Provider Nurse Practitioner; PCP Nurse Practitioner; Referring Provider Orthopaedic Surgery; Visit Provider Orthopaedic Surgery
PROC: 0RQJ0ZZ Repair Right Shoulder Joint, Open Approach (ICD-10-PCS; CPT 23472; principal; 2023-07-01 07:45)
DX: M19.011 Primary osteoarthritis, right shoulder (principal); G89.18 Other acute postprocedural pain
CPT/HCPCS: 23472; 64450; 73020; C1776; J0690; J1100; J1885; J2250; J2405; J2704; J3010; J3410

== ENCOUNTER → 2024-02-25 09:18 | Outpatient (CLI) | payer MEDICARE, SELFPAY ==
[2024-02-25 10:40] LABS: Hemoglobin A1C% w Est Avg Glu 5.7 % (4.0-6.0)
[2024-02-25 11:15] LABS: Alanine Aminotransferase 46 IU/L (<50); Albumin 4.3 g/dL (3.5-5.0); Albumin Globulin Ratio 1.5 (1.0-2.8); Alkaline Phosphatase 92 U/L (38-126); Aspartate Aminotransferase 36 IU/L (17-59); Bilirubin Total 0.7 mg/dL (0.2-1.3); Blood Urea Nitrogen 18 mg/dL (9-20); Calcium 9.4 mg/dL (8.4-10.2); Carbon Dioxide 22 mmol/L (22-32); Chloride 105 mmol/L (98-107); Estimated Glomerular Filt Rate > 60 mL/min (>60); Globulin 2.8 g/dL (1.7-4.1); Glucose 109 mg/dL (80-110); HEMOLYSIS < 15 (0-50); Potassium 4.3 mmol/L (3.4-5.1); Sodium 138 mmol/L (137-145); Total Protein 7.1 g/dL (6.3-8.2)
== END ==
PROVIDERS: Family Provider Nurse Practitioner; PCP Family Medicine; Referring Provider Nurse Practitioner; Visit Provider Nurse Practitioner
DX: R73.01 Impaired fasting glucose (principal)
CPT/HCPCS: 36415; 80053; 83036

== ENCOUNTER → 2024-03-08 08:09 | Outpatient (CLI) | payer MEDICARE, SELFPAY ==
--- NOTE | 2024-03-08 08:12 | DI.RAD.S_ITS ---
PROCEDURE: XR LUMBAR SPINE 2-3V INDICATIONS: back pain TECHNIQUE: 3 views of the lumbar spine were acquired. COMPARISON: None. FINDINGS: Bones: 5 [id number] vertebrae are present. There is normal bony alignment. No vertebral body compression fractures. No suspicious bony lesions. Disc space narrowing hypertrophic facet joints noted in the lower lumbar spine Soft tissues: Overlying bowel gas pattern is normal. No suspicious soft tissue calcifications. 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 on 03/08/2024 at 17:12
[2024-03-08 11:07] LABS: Cholesterol 183 mg/dL (140-199); HDL Cholesterol 41 mg/dL (40-60); LDL Cholesterol Calculated 102 mg/dL (<100); Triglycerides 200 mg/dL (35-150)
[2024-03-08 11:37] LABS: Prostate Specific Antigen Scrn 0.931 ng/mL (0.1-4.0)
== END ==
PROVIDERS: Family Provider Nurse Practitioner; PCP Family Medicine; Referring Provider Family Medicine; Visit Provider Family Medicine
DX: M47.816 Spondylosis without myelopathy or radiculopathy, lumbar region (principal); M51.361 Other intervertebral disc degeneration, lumbar region with lower extremity pain only; Z12.5 Encounter for screening for malignant neoplasm of prostate; E78.5 Hyperlipidemia, unspecified; M54.9 Dorsalgia, unspecified; M79.605 Pain in left leg
CPT/HCPCS: 36415; 72100; 80061; G0103

== ENCOUNTER → 2024-06-02 08:11 | Outpatient (CLI) | payer MEDICARE, SELFPAY ==
--- NOTE | 2024-06-02 08:12 | DI.MRI.S_ITS ---
PROCEDURE: MR LUMBAR SPINE WO CON INDICATIONS: back pain TECHNIQUE: Noncontrast sagittal T1 spin echo and T2 fast echo, sagittal STIR, and T2 fast spin echo through the lumbar spine. In cases with scoliosis, additional coronal T2 fast spin echo may be performed. COMPARISON: None. FINDINGS: Image quality: Excellent. Alignment and Curvature: There is trace retrolisthesis L3 on L4, L5 on S1. Transitional anatomy is present with lumbarization of the 1st sacral vertebral body. For purposes of this exam, vertebral bodies are numbered 1 through 5. Bone Marrow: Marrow is of normal overall signal. No acute vertebral body compression fractures. Spinal Cord: Conus medullaris terminates at the L1 level. Visualized cord demonstrates normal signal and size. Paraspinous Soft Tissues: No paravertebral masses. T12-L1: No disc bulge, spinal stenosis or foraminal narrowing. L1-L2: Minimal disc bulge without spinal stenosis or foraminal narrowing. Mild facet and ligamentum flavum hypertrophy as well as epidural lipomatosis. L2-L3: Mild disc bulge without spinal stenosis or foraminal narrowing. Facet and ligamentum flavum hypertrophy as well as epidural lipomatosis. L3-L4: Mild disc bulge without spinal stenosis or foraminal narrowing. Facet and ligamentum flavum hypertrophy as well as epidural lipomatosis. L4-L5: Mild disc bulge with mild spinal stenosis. Minimal bilateral foraminal narrowing with facet and ligamentum flavum hypertrophy. L5-S1: Mild disc bulge including a right foraminal component. Posterior central protrusion is present. Mild spinal stenosis. [id number] right foraminal narrowing with facet and ligamentum flavum hypertrophy. IMPRESSION: Multilevel disc bulges. Multilevel spinal stenosis and foraminal narrowing overall mild as described above. Dictated by: Lorie Gamez M.D. on 06/02/2024 at 16:59 Approved by: Lorie Gamez M.D. on 06/02/2024 at 17:03
== END ==
PROVIDERS: PCP Family Medicine; Referring Provider Family Medicine; Visit Provider Family Medicine
DX: M51.370 Other intervertebral disc degeneration, lumbosacral region with discogenic back pain only (principal); M51.360 Other intervertebral disc degeneration, lumbar region with discogenic back pain only; M47.816 Spondylosis without myelopathy or radiculopathy, lumbar region; M47.817 Spondylosis without myelopathy or radiculopathy, lumbosacral region; M48.061 Spinal stenosis, lumbar region without neurogenic claudication; M48.07 Spinal stenosis, lumbosacral region
CPT/HCPCS: 72148

== ENCOUNTER → 2024-12-27 08:20 | Outpatient (CLI) | payer MEDICARE, SELFPAY ==
[2024-12-27 08:40] LABS: Add Manual Diff / Slide Review NO; Hematocrit 47.2 % (41-53); Hemoglobin 16.2 g/dL (13.5-17.5); Lymphocytes Absolute Auto 1900 /uL (1100-4500); Mean Corpuscular HGB Conc 34.3 % (30-36); Mean Corpuscular Hemoglobin 30.3 PG (26-34); Mean Corpuscular Volume 88.4 fL (80-100); Platelet Count 220 X10^3/uL (150-400)
[2024-12-27 09:03] LABS: Alanine Aminotransferase 43 IU/L (<50); Albumin 4.2 g/dL (3.5-5.0); Albumin Globulin Ratio 1.4 (1.0-2.8); Alkaline Phosphatase 83 U/L (38-126); Blood Urea Nitrogen 19 mg/dL (9-20); Calcium 9.1 mg/dL (8.4-10.2); Carbon Dioxide 21 mmol/L (22-32); Chloride 106 mmol/L (98-107); Cholesterol 169 mg/dL (140-199); Estimated Glomerular Filt Rate > 60 mL/min (>60); Globulin 3.0 g/dL (1.7-4.1); Glucose 113 mg/dL (70-99); HDL Cholesterol 48 mg/dL (40-60); HEMOLYSIS < 15 (0-50); Potassium 4.2 mmol/L (3.4-5.1); Sodium 137 mmol/L (137-145); Total Protein 7.2 g/dL (6.3-8.2); Triglycerides 192 mg/dL (35-150)
[2024-12-27 09:28] LABS: TSH w/ Reflex to FT4 0.98 uIU/mL (0.47-4.68)
== END ==
PROVIDERS: PCP Family Medicine; Referring Provider Family Medicine; Visit Provider Family Medicine
DX: I10 Essential (primary) hypertension (principal); Z12.5 Encounter for screening for malignant neoplasm of prostate; E78.2 Mixed hyperlipidemia; F32.9 Major depressive disorder, single episode, unspecified
CPT/HCPCS: 36415; 80053; 80061; 84443; 85025; G0103